=== PATIENT | male | born 1950 | race Caucasian/White ===

== ENCOUNTER 2020-10-23 03:16 | Emergency (ER) | payer MEDICARE, MEDICAID, SELFPAY ==
[2020-10-23] VITALS (7 sets, daily range): BP systolic 144–196; BP diastolic 73–105; PULSE 60–95; RESP 20–29; TEMP 36.6–37.4; O2SAT 93–99; BMI 32.5
--- NOTE | ~2020-10-23 | CT_ITS ---
EXAMINATION: CT CHEST WITHOUT CONTRAST CLINICAL INFORMATION: Chest pain, cough and fever COMPARISON: Previous chest CTA July 2015 and chest x-ray most recent from earlier the same day TECHNIQUE: Multidetector volumetric CT imaging of the chest was done. Axial MIP volume rendering provided. Sagittal and coronal reformatted images were obtained. This CT examination was performed using dose optimization techniques as appropriate, variously including the following: *Automated exposure control *Adjustment of mA and/or kV according to patient size (this includes techniques or standardized protocols for targeted exams where dose is matched to indication/reason for exam; i.e. extremities or head) *Use of iterative reconstruction technique DLP: 419 mGy-cm FINDINGS: BARBACK: LUNGS: Evaluation of the lungs is limited due to artifact from respiratory motion. There is a 7 x 8 mm right upper lobe pulmonary nodule axial image 20 series 3 that is stable. There is a 2 mm calcified right upper lobe nodule axial image 19 series 2. There are several clustered heterogeneous groundglass attenuation nodules in the right upper lobe, largest measuring 1 and 0.7 cm axial image 25 and 26 series 2 There is minimal subsegmental atelectasis at the lung bases and inferior segment of the lingula.. MEDIASTINUM: The heart is enlarged. There is coronary artery calcification. There is no pericardial effusion. The thoracic aorta is upper normal in caliber. The pulmonary arteries appear enlarged. The main pulmonary artery measures 4.8 cm. This is similar to 2016 exam. There are small mediastinal lymph nodes. No enlarged lymph nodes are seen. PLEURA: There are small bilateral pleural effusions. AXILLA: No lymphadenopathy. UPPER ABDOMEN: There is evidence of atherosclerotic disease. OSSEOUS STRUCTURES: There are old right-sided rib fractures. There are degenerative changes of the spine. CT/CT chest wo con IMPRESSION: Limited evaluation of the lungs due to artifact from respiratory motion. Several clustered heterogeneous groundglass attenuation nodules in the right upper lobe. This may represent an infectious or inflammatory process. Stable 7 x 8 mm solid-appearing right upper lobe nodule. Small 2 mm calcified right upper lobe nodule. Enlarged heart and coronary artery calcification. Upper normal-sized thoracic aorta. Enlarged pulmonary arteries. This is similar to 2016 exam.
--- NOTE | ~2020-10-23 | XR_ITS ---
EXAMINATION: CHEST 1 VIEW CLINICAL INFORMATION: Dyspnea. COMPARISON: 10/26/2018. TECHNIQUE: An AP view of the chest is provided. FINDINGS: The cardiac silhouette his prominent, though stable. The mediastinal and hilar contours are unremarkable. There are neither pleural effusions nor pneumothoraces. There are no consolidations. The osseous structures are stable. XR/XR chest 1V IMPRESSION: No evidence for acute disease.
--- NOTE | 2020-10-23 03:25 | ECG_ITS ---
Test Reason : SOB Blood Pressure : / mmHG Vent. Rate : 061 BPM Atrial Rate : 057 BPM P-R Int : 000 ms QRS Dur : 168 ms QT Int : 462 ms P-R-T Axes : 000 -08 002 degrees QTc Int : 465 ms Atrial fibrillation Right bundle branch block Inferior infarct , age undetermined Abnormal ECG When compared with ECG of 26-OCT-2018 13:35, Right bundle branch block is now Present Referred By: Soumya Joe Electronically Signed By:NINOSKA WEST
[2020-10-23 03:41] LABS: COVID-19 Test Negative (Negative); IDNOW Serial# 9DD0AD1C
--- NOTE | 2020-10-23 03:58 | ED_ITS ---
HPI - General Adult General Chief complaint: Upper Respiratory Symptoms Stated complaint: SOB,FEVER PER SNF Time Seen by Provider: 10/23/20 03:25 Source: patient Mode of arrival: EMS History of Present Illness HPI narrative: 70-year-old male who is brought in from care 1 by EMS and tested here on arrival for COVID-19. As per care 1 patient has a cough with chest wall pain started 2 hours ago. Patient was given aspirin by EMS. Patient states he is a little short of breath but denies any chest pain or abdominal pain. Related Data Allergies Allergy/AdvReac Type Severity Reaction Status Date / Time haloperidol [From HALDOL] Allergy Unknown UNKNOWN Unverified 03/28/20 18:59 penicillin V Allergy Unknown Verified 08/29/19 00:00 Penicillins [PENICILLINS] Allergy Unknown UNKNOWN Unverified 03/28/20 18:59 Review of Systems Review of Systems: Pertinent positives and negatives as stated in HPI 10 point review of systems is otherwise negative. [facility] Past Medical History Source: nursing notes reviewed Medical History Afib Myocardial infarction Social History Social History Smoking Status: Unknown if ever smoked Use of substances other than those prescribed or required for medical reasons: No Advance Directives: No Physical Exam Vital Signs: Vital Signs: Last Vital Signs Temp 98.3 F 10/23/20 08:19 Pulse 70 10/23/20 08:19 Resp 29 H 10/23/20 08:19 BP 168/78 H 10/23/20 08:19 Pulse Ox 93 10/23/20 08:19 Body Mass Index 32.5 VITAL SIGNS: Reviewed. GENERAL: Chronically ill, appears older than stated age, in no acute distress. HEAD: Normocephalic/atraumatic EYES: PERRLA, EOMI EARS: Ext canals without abnormality NOSE: Nares patent bilateral, nasal cannula in place OROPHARYNX: no oral lesions noted, posterior pharynx clear, tacky mucosa NECK: Supple, no adenopathy LUNGS: Diminished breath sounds, positive tachypnea SpO2<97> CARDIOVASCULAR: Regular rate and rhythm without noted murmurs, no JVD or lower extremity edema. ABDOMEN: Soft, non-tender, non-distended with bowel sounds. MUSCULOSKELETAL: No tenderness, deformities, or effusions noted on gross inspection. Bilateral lower EXTREMITIES: Skin darkening noted to bilateral lower extremities consistent with chronic venous disease SKIN: Inspection of the skin reveals no rashes NEUROLOGIC: Alert and oriented x 2. Strength and sensation to light touch were grossly intact x 4. Course Course Course Narrative: 70-year-old male with history and clinical presentation suggestive pneumonia, heart failure, and less likely cardiac etiology especially with reported fever that was not present on arrival. On review of all investigations there is a small leukocytosis with corresponding left shift without evidence of infiltrate on chest x-ray but will further evaluate with chest CT. There is a noted decrease in hemoglobin when compared to labs from 2019, but stool guaiac is negative and there is no history of hematemesis. Although troponin is noted to be 49.5 this is lateral in comparison to prior troponin and taken in combination with patient's absence of chest pain unlikely to be clinically significant. In addition, the BNP is likely secondary to renal function as there is no supporting findings on clinical exam or chest x-ray. UA is positive and patient to receive Rocephin. Signed out to Dr Tate: f/u CT chest, Trop #2 and if negative then d/c on antibiotics for UTI. Medical Decision Making Lab Data Result diagrams: 10/23/20 05:56 10/23/20 05:56 Labs: Lab Results 10/23/20 10/23/20 10/23/20 Range/Units 03:20 05:56 05:56 WBC 10.9 H (4.8-10.8) X10*3/uL RBC 3.11 L (4.60-5.80) X10*6/uL Hgb 9.3 L (14.0-18.0) g/dl Hct 29.6 L (42-52) % MCV 95.2 (80-98) fL MCH 29.9 (27.0-33.0) pg MCHC 31.4 (31.0-36.0) g/dl RDW 15.0 (11.0-16.0) % Plt Count 219 (160-400) X10*3/uL MPV 10.0 (9.4-12.4) fL Immature Gran % (Auto) 0.6 H (0.0-0.4) % Neut % (Auto) 79.8 H (45-73) % Lymph % (Auto) 10.7 L (20-40) % [place] % (Auto) 7.6 (2-11) % Eos % (Auto) 1.0 (0-4) % Baso % (Auto) 0.3 (0-2) % Lymph # (Auto) 1.2 (1.2-4.9) X10*3/uL [place] # (Auto) 0.8 (0.1-1.2) X10*3/uL Eos # (Auto) 0.1 (0.0-0.4) X10*3/uL Baso # (Auto) 0.0 (0.0-0.2) X10*3/uL Abs Immat Gran (auto) 0.07 H (0.00-0.03) X10*3/uL Absolute Neuts (auto) 8.7 H (2.0-8.3) X10*3/uL Absolute Nucleated RBC 0.000 (0.0-0.012) X10*3/uL Nucleated RBC % (auto) 0.0 (0.0-0.2) /100WBC Sodium 139 (135-145) mmol/L Potassium 4.9 (3.3-5.1) mmol/L Chloride 112 H (96-108) mmol/L Carbon Dioxide 19 L (22-29) mmol/L Anion Gap 13 (12-20) BUN 50 H (9-16) mg/dL Creatinine 3.06 H (0.5-1.4) mg/dL Estim Creat Clear Calc 29.0 Estimated GFR 20 Random Glucose 107 (60-115) mg/dL Lactic Acid (0.5-2.0) mmol/L Calcium 8.4 (8.4-10.2) mg/dL Total Bilirubin 0.7 (0.0-1.0) mg/dL AST 15 (5-37) U/L ALT 9 (0-40) U/L Alkaline Phosphatase 89 (39-117) U/L Troponin I High Sens (<3.5-35.0) ng/L B-Natriuretic Peptide (<100) pg/mL Total Protein 6.6 (6.5-8.0) g/dL Albumin 3.3 L (3.5-5.0) g/dL Urine Color Urine Appearance Urine pH (5.0-8.0) Ur Specific [place] (1.005-1.025) Urine Protein (NEG-TRACE) MG/DL Urine Glucose (UA) (NEG) MG/DL Urine Ketones (NEG) MG/DL Urine Blood (NEG) Urine Nitrite (NEG) Ur Leukocyte Esterase (NEG) Urine RBC (0) /HPF Urine WBC (0-4) /HPF Ur Squamous Epith Cells /LPF Urine Bacteria /LPF Stool Occult Blood (NEGATIVE) COVID-19 ([facility]) Negative (Negative) COVID-19 Clin Com See Note 10/23/20 10/23/20 10/23/20 Range/Units 05:56 05:56 08:06 WBC (4.8-10.8) X10*3/uL RBC (4.60-5.80) X10*6/uL Hgb (14.0-18.0) g/dl Hct (42-52) % MCV (80-98) fL MCH (27.0-33.0) pg MCHC (31.0-36.0) g/dl RDW (11.0-16.0) % Plt Count (160-400) X10*3/uL MPV (9.4-12.4) fL Immature Gran % (Auto) (0.0-0.4) % Neut % (Auto) (45-73) % Lymph % (Auto) (20-40) % [place] % (Auto) (2-11) % Eos % (Auto) (0-4) % Baso % (Auto) (0-2) % Lymph # (Auto) (1.2-4.9) X10*3/uL [place] # (Auto) (0.1-1.2) X10*3/uL Eos # (Auto) (0.0-0.4) X10*3/uL Baso # (Auto) (0.0-0.2) X10*3/uL Abs Immat Gran (auto) (0.00-0.03) X10*3/uL Absolute Neuts (auto) (2.0-8.3) X10*3/uL Absolute Nucleated RBC (0.0-0.012) X10*3/uL Nucleated RBC % (auto) (0.0-0.2) /100WBC Sodium (135-145) mmol/L Potassium (3.3-5.1) mmol/L Chloride (96-108) mmol/L Carbon Dioxide (22-29) mmol/L Anion Gap (12-20) BUN (9-16) mg/dL Creatinine (0.5-1.4) mg/dL Estim Creat Clear Calc Estimated GFR Random Glucose (60-115) mg/dL Lactic Acid 0.8 (0.5-2.0) mmol/L Calcium (8.4-10.2) mg/dL Total Bilirubin (0.0-1.0) mg/dL AST (5-37) U/L ALT (0-40) U/L Alkaline Phosphatase (39-117) U/L Troponin I High Sens 49.5 H (<3.5-35.0) ng/L B-Natriuretic Peptide 357 H (<100) pg/mL Total Protein (6.5-8.0) g/dL Albumin (3.5-5.0) g/dL Urine Color Urine Appearance Urine pH (5.0-8.0) Ur Specific [place] (1.005-1.025) Urine Protein (NEG-TRACE) MG/DL Urine Glucose (UA) (NEG) MG/DL Urine Ketones (NEG) MG/DL Urine Blood (NEG) Urine Nitrite (NEG) Ur Leukocyte Esterase (NEG) Urine RBC (0) /HPF Urine WBC (0-4) /HPF Ur Squamous Epith Cells /LPF Urine Bacteria /LPF Stool Occult Blood NEGATIVE (NEGATIVE) COVID-19 ([facility]) (Negative) COVID-19 Clin Com 10/23/20 Range/Units 08:24 WBC (4.8-10.8) X10*3/uL RBC (4.60-5.80) X10*6/uL Hgb (14.0-18.0) g/dl Hct (42-52) % MCV (80-98) fL MCH (27.0-33.0) pg MCHC (31.0-36.0) g/dl RDW (11.0-16.0) % Plt Count (160-400) X10*3/uL MPV (9.4-12.4) fL Immature Gran % (Auto) (0.0-0.4) % Neut % (Auto) (45-73) % Lymph % (Auto) (20-40) % [place] % (Auto) (2-11) % Eos % (Auto) (0-4) % Baso % (Auto) (0-2) % Lymph # (Auto) (1.2-4.9) X10*3/uL [place] # (Auto) (0.1-1.2) X10*3/uL Eos # (Auto) (0.0-0.4) X10*3/uL Baso # (Auto) (0.0-0.2) X10*3/uL Abs Immat Gran (auto) (0.00-0.03) X10*3/uL Absolute Neuts (auto) (2.0-8.3) X10*3/uL Absolute Nucleated RBC (0.0-0.012) X10*3/uL Nucleated RBC % (auto) (0.0-0.2) /100WBC Sodium (135-145) mmol/L Potassium (3.3-5.1) mmol/L Chloride (96-108) mmol/L Carbon Dioxide (22-29) mmol/L Anion Gap (12-20) BUN (9-16) mg/dL Creatinine (0.5-1.4) mg/dL Estim Creat Clear Calc Estimated GFR Random Glucose (60-115) mg/dL Lactic Acid (0.5-2.0) mmol/L Calcium (8.4-10.2) mg/dL Total Bilirubin (0.0-1.0) mg/dL AST (5-37) U/L ALT (0-40) U/L Alkaline Phosphatase (39-117) U/L Troponin I High Sens (<3.5-35.0) ng/L B-Natriuretic Peptide (<100) pg/mL Total Protein (6.5-8.0) g/dL Albumin (3.5-5.0) g/dL Urine Color YELLOW Urine Appearance CLOUDY Urine pH 6.0 (5.0-8.0) Ur Specific [place] 1.020 (1.005-1.025) Urine Protein 3+ H (NEG-TRACE) MG/DL Urine Glucose (UA) 250 H (NEG) MG/DL Urine Ketones NEG (NEG) MG/DL Urine Blood 3+ H (NEG) Urine Nitrite NEG (NEG) Ur Leukocyte Esterase 2+ H (NEG) Urine RBC 10-14 H (0) /HPF Urine WBC 76-150 H (0-4) /HPF Ur Squamous Epith Cells NONE /LPF Urine Bacteria 4+ /LPF Stool Occult Blood (NEGATIVE) COVID-19 ([facility]) (Negative) COVID-19 Clin Com ECG Data Attestation: I personally reviewed and interpreted this ECG as follows: Prior ECG tracings: available for review (10/26/2018 right bundle branch block is new) Interpretation: Atrial fibrillation, HR -61, RBBB, no ST elevations, QTC is within normal limits.
[2020-10-23 06:08] LABS: MANUAL DIFF FLAG NO
[2020-10-23 06:09] LABS: Basophils Percent Auto 0.3 % (0-2); Eosinophils Absolute Auto 0.1 X10*3/uL (0.0-0.4); Hematocrit 29.6 % (42-52); Hemoglobin 9.3 g/dl (14.0-18.0); Imm Gran Abs Auto 0.07 X10*3/uL (0.00-0.03); Imm Gran Pct Auto 0.6 % (0.0-0.4); Lymphocytes Absolute Auto 1.2 X10*3/uL (1.2-4.9); Lymphocytes Percent Auto 10.7 % (20-40); Mean Corpuscular HGB Conc 31.4 g/dl (31.0-36.0); Mean Corpuscular Hemoglobin 29.9 pg (27.0-33.0); Mean Corpuscular Volume 95.2 fL (80-98); Monocytes Absolute Auto 0.8 X10*3/uL (0.1-1.2); Monocytes Percent Auto 7.6 % (2-11); Neutrophils Absolute Auto 8.7 X10*3/uL (2.0-8.3); Neutrophils Percent Auto 79.8 % (45-73); Platelet Count 219 X10*3/uL (160-400); Red Blood Count 3.11 X10*6/uL (4.60-5.80); White Blood Count 10.9 X10*3/uL (4.8-10.8)
[2020-10-23 06:37] LABS: Lactic Acid 0.8 mmol/L (0.5-2.0)
[2020-10-23 06:41] LABS: Alanine Aminotransferase 9 U/L (0-40); Albumin Level 3.3 g/dL (3.5-5.0); Alkaline Phosphatase 89 U/L (39-117); Anion Gap 13 (12-20); Aspartate Amino Transferase 15 U/L (5-37); Bilirubin Total 0.7 mg/dL (0.0-1.0); Blood Urea Nitrogen 50 mg/dL (9-16); Calcium 8.4 mg/dL (8.4-10.2); Carbon Dioxide 19 mmol/L (22-29); Chloride 112 mmol/L (96-108); Estimated Glomerular Filt Rate 20; Glucose Random 107 mg/dL (60-115); Potassium 4.9 mmol/L (3.3-5.1); Sodium 139 mmol/L (135-145); Total Protein 6.6 g/dL (6.5-8.0)
--- NOTE | 2020-10-23 08:00 | PC.NURSE ---
pt resting in the stretcher, respirations even and unlabored, pt is alert and oriented, to place but not time, respirations even and unlabored, ls clear, pt denies pain at this time. vs stable
[2020-10-23 08:13] LABS: OBS Int Ctl Valid YES; OBS1 NEGATIVE (NEGATIVE)
[2020-10-23 08:36] LABS: B Type Natriuretic Peptide 357 pg/mL (<100)
[2020-10-23 08:38] LABS: Troponin-I High Sensitivity 49.5 ng/L (<3.5-35.0)
[2020-10-23 08:42] LABS: Color Urine YELLOW; Glucose Urine UA 250 MG/DL (NEG); Leukocyte Esterase Urine 2+ (NEG); Nitrite Urine NEG (NEG); UACC Culture Trigger YES; Urine Blood 3+ (NEG); Urine Ketones NEG (NEG); Urine Protein 3+ MG/DL (NEG-TRACE)
[2020-10-23 08:43] LABS: Appearance Urine CLOUDY
[2020-10-23 08:52] LABS: Bacteria Urine 4+ /LPF
[2020-10-23] MEDS: cefTRIAXone sodium 1 GM in 0.9 % Sodium Chloride 50 ML IV (09:51)
[2020-10-23 11:05] LABS: Troponin-I High Sensitivity 43.5 ng/L (<3.5-35.0)
--- NOTE | 2020-10-23 11:46 | PC.NURSE ---
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
--- NOTE | 2020-10-23 13:41 | PC.NURSE ---
pt pulled out iv access, pt cleaned and changed performed, pt moved to hallway bed awating ambulace to go back to facility
--- NOTE | 2020-10-23 14:03 | PC.NURSE ---
nurse to nurse given to [facility], ems to transport patient
== END 2020-10-23 14:03 ==
PROVIDERS: Student in an Organized Health Care Education/Training Program; Emergency Provider Emergency Medicine Emergency Medical Services
DX: R07.89 Other chest pain (principal); N39.0 Urinary tract infection, site not specified; Z20.822 Contact with and (suspected) exposure to COVID-19; R50.9 Fever, unspecified; I48.91 Unspecified atrial fibrillation; I25.2 Old myocardial infarction
CPT/HCPCS: 11104; 36415; 71045; 71250; 80053; 81001; 81003; 82272; 83605; 83880; 84484; 85025; 87040; 87086; 87088; 87186; 87635; 93005; 96365; 99285; J0696

== ENCOUNTER 2020-12-15 10:12 | Inpatient (IN) | payer MEDICARE, MEDICAID, SELFPAY ==
[2020-12-15] VITALS (7 sets, daily range): BP systolic 142–181; BP diastolic 84–108; PULSE 68–86; RESP 16–24; TEMP 36.8–36.9; O2SAT 89–98; BMI 34.7
--- NOTE | ~2020-12-15 | XR_ITS ---
EXAMINATION: XR CHEST CLINICAL INFORMATION: Chest pain. Leg swelling. COMPARISON: None TECHNIQUE: 2 views of the chest were obtained. FINDINGS: The lungs are somewhat expanded with patchy opacity left lung base likely effusion/infiltrate or atelectasis. Rest of lungs are clear. Heart size and pulmonary vascularity is normal. No gross bony abnormality seen. XR/XR chest 2V IMPRESSION: Left basilar haziness question effusion/atelectasis.
--- NOTE | ~2020-12-15 | CT_ITS ---
EXAMINATION: CT CHEST WITHOUT CONTRAST CLINICAL INFORMATION: abnormal CXR, eval for pna vs fluid . COMPARISON: Chest x-ray from today as well as the 10/23/[address] TECHNIQUE: Multidetector volumetric imaging was performed from the thoracic inlet through the lung bases without contrast. A low dose technique was utilized. Sagittal and coronal reformatted images were obtained on the technologist workstation. Soft tissue and lung algorithms evaluated. Thick slab MIP images were performed to increase nodule conspicuity. This CT examination was performed using dose optimization techniques as appropriate, variously including the following: *Automated exposure control *Adjustment of mA and/or kV according to patient size (this includes techniques or standardized protocols for targeted exams where dose is matched to indication/reason for exam; i.e. extremities or head) *Use of iterative reconstruction technique DLP: 413 mGy-cm. FINDINGS: LUNG: Bibasilar dependent atelectasis likely in part related to the bilateral pleural effusions. No additional dense consolidation. Finding does obscured by respiratory motion artifact on the study. There is a stable 0.9 cm pulmonary nodule in the medial aspect of the right upper lobe appreciated on axial image . This is not significantly changed in character from the prior study.. MEDIASTINUM: Vascular calcification within the aorta and coronary vessels. Prominent mediastinal lymph nodes are again seen the largest is a subcarinal lymph node with a short axis diameter of approximately 2 cm, similar to the prior study. There is mild central calcification within this lymph node. Air-filled distended esophagus is noted which could be incidental although can be associated with component of esophageal dysmotility. Central airways grossly unremarkable. PERICARDIUM/PLEURA: Increased small right greater than left bilateral pleural effusions are now present. THYROID/VISUALIZED LOWER NECK: Unremarkable. CHEST WALL/AXILLA: Unremarkable. VISUALIZED UPPER ABDOMEN: Unremarkable. BONES: Degenerative changes in the spine. Old healed right-sided rib fractures are noted without acute displaced rib fracture seen. CT/CT chest wo con IMPRESSION: Increased bilateral pleural effusions when compared to the prior study. There is associated bibasilar airspace changes likely due to atelectasis. I do not appreciate any new or dense consolidation when compared to prior study. Stable nonspecific pulmonary nodule in the medial aspect of the right upper lobe difficult to define further due to motion artifact on the study. This has been present on prior studies and measured up to 9 mm in size on the 07/13/2015 study as well suggesting more benign etiology.
--- NOTE | 2020-12-15 10:22 | ECG_ITS ---
Test Reason : CP Blood Pressure : / mmHG Vent. Rate : 077 BPM Atrial Rate : 065 BPM P-R Int : 000 ms QRS Dur : 168 ms QT Int : 454 ms P-R-T Axes : 000 -23 -10 degrees QTc Int : 513 ms Atrial fibrillation Right bundle branch block Inferior infarct (cited on or before 23-OCT-2020) Abnormal ECG When compared with ECG of 23-OCT-2020 04:52, No significant change was found Referred By: Jessica Gomez Electronically Signed By:Thomas Mchugh
--- NOTE | 2020-12-15 10:30 | ED.GENADULT ---
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 No reports of shortness of breath or chest discomfort. No fevers, chills or cough. Of note patient is admitted to [facility] for CHF 11/03/2020. I do not have the discharge summary readily available. On review of patient's medication list there are no diuretics noted. Per report from [facility] where patient resides as a [facility] resident. DNR DNI code status Related Data Home Medications Medication Instructions Recorded Confirmed amlodipine 1 tab PO DAILY 12/15/20 12/15/20 aripiprazole 1 tab PO DAILY 12/15/20 12/15/20 calcium carbonate 1,000 mg PO DAILY 12/15/20 12/15/20 dapagliflozin [Farxiga] 1 tab PO DAILY 12/15/20 12/15/20 gemfibrozil 1 tab PO BID 12/15/20 12/15/20 hydralazine 1 tab PO TID 12/15/20 12/15/20 insulin lispro [Humalog KwikPen unit SUBCUT TIDAC 12/15/20 Insulin] metoprolol tartrate 1 tab PO BID 12/15/20 12/15/20 oxybutynin chloride 10 mg PO BID 12/15/20 12/15/20 tamsulosin 1 cap PO DAILY 12/15/20 12/15/20 Allergies Allergy/AdvReac Type Severity Reaction Status Date / Time haloperidol [From HALDOL] Allergy Unknown UNKNOWN Verified 12/15/20 10:28 penicillin V Allergy Unknown Unknown Verified 12/15/20 10:28 Penicillins [PENICILLINS] Allergy Unknown UNKNOWN Verified 12/15/20 10:28 Review of Systems Review of Systems: Yes Unobtainable due to mental status (limited d/t baseline confusion) Neurologic: Denies Abnormal speech present [facility] Past Medical History Medical History Acute kidney failure Afib Alcoholic cardiomyopathy Atherosclerotic heart disease of [place] coronary artery without angina pectoris BPH (benign prostatic hyperplasia) Chronic kidney disease HTN (hypertension) Myocardial infarction Systolic heart failure Type 2 diabetes mellitus Unspecified convulsions Unspecified sequelae of cerebral infarction Wernickes encephalopathy Social History Social History Patient Tobacco Use Status: Tobacco use Unknown Use of substances other than those prescribed or required for medical reasons: No Advance Directives: Yes Advance Directives Information Provided: Yes Advance Directives on File: No Physical Exam Vital Signs: Vital Signs: Last Vital Signs Temp 98.5 F 12/15/20 12:16 Pulse 74 12/15/20 13:28 Resp 20 12/15/20 13:28 BP 170/90 H 12/15/20 13:28 Pulse Ox 98 12/15/20 13:29 Body Mass Index 34.7 Const: General: cooperative and comfortable Orientation/consciousness: oriented to person and oriented to place Limitations: altered mental status (limited d/t confusion ) HENMT: Head: Yes normal to inspection Ears: hearing grossly normal bilaterally and TM's normal bilaterally General nose exam: Normal external nose present Face and sinus: Yes normal facial exam Mouth: Normal oral and palatal mucosa present Throat: Yes posterior oropharynx normal, Yes tonsils normal and Yes uvula midline Eyes: General: appearance normal, both eyes and all related structures Pupils: Equal, round and reactive pupils present Neck: Neck: Yes normal visual inspection, Yes full ROM and Yes no lymphadenopathy Chest: Chest palpation & inspection: normal inspection of the chest Resp: Other: Mild accessory muscle use noted Speaking short phrases Pulse ox 97% RA Diminished breath sounds bilaterally Cardio: Rate: regular rate Rhythm: regular rhythm Peripheral pulses: Peripheral pulses 2+ throughout GI: Inspection: Yes normal to inspection Palpation (GI): Soft to palpation and nontender Auscultation: normal bowel sounds Back/Spine/Pelvis: Thoracic/Lumbar Spine: thoracic and lumbar spine normal to inspection Skin: General skin exam: no rashes or lesions noted Neuro: General: oriented to person, oriented to place, normal sensation to monofilament and Unable to assess gait Cranial nerves: Yes Equal, round and reactive pupils present Speech: No Abnormal speech present Gait exam (Neuro): Unable to assess gait Extrem: Other: Bilateral pitting edema 3+ extending to the mid lower extremities. No warmth. Mild erythema. 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 Patient denies any shortness of breath or chest pain. He is noted to have some mild accessory muscle use with diminished breath sounds but fortunately on arrival pulse ox appears stable. Bilateral pitting edema to lower extremities noted. Hypertensive 160s to 170 systolic. Will need labs, EKG, chest x-ray. 1130-UA consistent with a UTI. At this time infection is suspected. Antibiotics ordered. Renal function at baseline. CBC shows microcytic anemia unchanged from previous. Troponin is mildly elevated. No chest pain or ischemic changes noted on EKG. Plan for repeat 3 hour troponin. BNP is mildly elevated. Chest x-ray is concerning for left lower lobe atelectasis versus pneumonia. No obvious signs of fluid overload on the films. The patient does have some clinical findings on exam concerning for CHF. Will order CT chest to eval further. 1315-Hypoxia down to 87% RA which improved with oxygen NC. patient not ambulatory at baseline so unable to assess ambulatory oxygen saturation. CT chest pending. Likely CHF exacerbation. Will give Lasix 40mg IV. 1445-Received records from [facility] recent admit for CHF/PNA. Admit 10/23-11/02 for CHF initially treated with BiPAP and IV Lasix, pneumonia treated for community acquired with ceftriaxone and azithromycin, acute on chronic kidney disease. 1540-CT chest shows bilateral pleural effusions with some associated atelectasis. No pneumonia. Call out to Medicine to discuss for admission. 1600-D/w with Dr Ramos who accepted admission. Medical Decision Making [facility] Narrative Medical decision making narrative: CHF exacerbation, pneumonia, pe/dvt Medical Records Medical records reviewed: Yes I reviewed the patient's medical records. Lab Data Lab results reviewed: Yes I reviewed the patient's lab results. Result diagrams: 12/15/20 10:58 12/15/20 10:58 Labs: Lab Results 12/15/20 12/15/20 12/15/20 Range/Units 10:57 10:57 10:58 WBC 6.5 (4.8-10.8) X10*3/uL RBC 3.19 L (4.60-5.80) X10*6/uL Hgb 9.5 L (14.0-18.0) g/dl Hct 31.4 L (42-52) % MCV 98.4 H (80-98) fL MCH 29.8 (27.0-33.0) pg MCHC 30.3 L (31.0-36.0) g/dl RDW 16.1 H (11.0-16.0) % Plt Count 230 (160-400) X10*3/uL MPV 9.4 (9.4-12.4) fL Immature Gran % (Auto) 0.5 H (0.0-0.4) % Neut % (Auto) 69.0 (45-73) % Lymph % (Auto) 19.1 L (20-40) % Clinch % (Auto) 8.3 (2-11) % Eos % (Auto) 2.8 (0-4) % Baso % (Auto) 0.3 (0-2) % Lymph # (Auto) 1.3 (1.2-4.9) X10*3/uL Clinch # (Auto) 0.5 (0.1-1.2) X10*3/uL Eos # (Auto) 0.2 (0.0-0.4) X10*3/uL Baso # (Auto) 0.0 (0.0-0.2) X10*3/uL Abs Immat Gran (auto) 0.03 (0.00-0.03) X10*3/uL Absolute Neuts (auto) 4.5 (2.0-8.3) X10*3/uL Absolute Nucleated RBC 0.000 (0.0-0.012) X10*3/uL Nucleated RBC % (auto) 0.0 (0.0-0.2) /100WBC PT 13.6 H (10.8-13.0) SEC INR 1.1 (0.9-1.1) Sodium (135-145) mmol/L Potassium (3.3-5.1) mmol/L Chloride (96-108) mmol/L Carbon Dioxide (22-29) mmol/L Anion Gap (12-20) BUN (9-16) mg/dL Creatinine (0.5-1.4) mg/dL Estim Creat Clear Calc Estimated GFR Random Glucose (60-115) mg/dL Lactic Acid 0.9 (0.5-2.0) mmol/L Calcium (8.4-10.2) mg/dL Magnesium (1.6-2.6) mg/dL Total Bilirubin (0.0-1.0) mg/dL Direct Bilirubin (0.0-0.5) mg/dL AST (5-37) U/L ALT (0-40) U/L Alkaline Phosphatase (39-117) U/L Troponin I High Sens (<3.5-35.0) ng/L B-Natriuretic Peptide (<100) pg/mL Total Protein (6.5-8.0) g/dL Albumin (3.5-5.0) g/dL Urine Color Urine Appearance Urine pH (5.0-8.0) Ur Specific [place] (1.005-1.025) Urine Protein (NEG-TRACE) MG/DL Urine Glucose (UA) (NEG) MG/DL Urine Ketones (NEG) MG/DL Urine Blood (NEG) Urine Nitrite (NEG) Ur Leukocyte Esterase (NEG) Urine RBC (0) /HPF Urine WBC (0-4) /HPF Ur Squamous Epith Cells /LPF Urine Bacteria /LPF COVID-19 ([facility]) (Negative) COVID-19 Clin Com 12/15/20 12/15/20 12/15/20 Range/Units 10:58 10:58 11:08 WBC (4.8-10.8) X10*3/uL RBC (4.60-5.80) X10*6/uL Hgb (14.0-18.0) g/dl Hct (42-52) % MCV (80-98) fL MCH (27.0-33.0) pg MCHC (31.0-36.0) g/dl RDW (11.0-16.0) % Plt Count (160-400) X10*3/uL MPV (9.4-12.4) fL Immature Gran % (Auto) (0.0-0.4) % Neut % (Auto) (45-73) % Lymph % (Auto) (20-40) % Clinch % (Auto) (2-11) % Eos % (Auto) (0-4) % Baso % (Auto) (0-2) % Lymph # (Auto) (1.2-4.9) X10*3/uL Clinch # (Auto) (0.1-1.2) X10*3/uL Eos # (Auto) (0.0-0.4) X10*3/uL Baso # (Auto) (0.0-0.2) X10*3/uL Abs Immat Gran (auto) (0.00-0.03) X10*3/uL Absolute Neuts (auto) (2.0-8.3) X10*3/uL Absolute Nucleated RBC (0.0-0.012) X10*3/uL Nucleated RBC % (auto) (0.0-0.2) /100WBC PT (10.8-13.0) SEC INR (0.9-1.1) Sodium 141 (135-145) mmol/L Potassium 4.5 (3.3-5.1) mmol/L Chloride 111 H (96-108) mmol/L Carbon Dioxide 20 L (22-29) mmol/L Anion Gap 15 (12-20) BUN 50 H (9-16) mg/dL Creatinine 3.70 H (0.5-1.4) mg/dL Estim Creat Clear Calc 24.0 Estimated GFR 16 Random Glucose 71 (60-115) mg/dL Lactic Acid (0.5-2.0) mmol/L Calcium 8.2 L (8.4-10.2) mg/dL Magnesium 2.1 (1.6-2.6) mg/dL Total Bilirubin 0.5 (0.0-1.0) mg/dL Direct Bilirubin 0.3 (0.0-0.5) mg/dL AST 15 (5-37) U/L ALT 6 (0-40) U/L Alkaline Phosphatase 104 (39-117) U/L Troponin I High Sens 27.4 (<3.5-35.0) ng/L B-Natriuretic Peptide 381 H (<100) pg/mL Total Protein 6.9 (6.5-8.0) g/dL Albumin 3.2 L (3.5-5.0) g/dL Urine Color YELLOW Urine Appearance HAZY Urine pH 5.5 (5.0-8.0) Ur Specific [place] 1.025 (1.005-1.025) Urine Protein 3+ H (NEG-TRACE) MG/DL Urine Glucose (UA) 250 H (NEG) MG/DL Urine Ketones NEG (NEG) MG/DL Urine Blood 3+ H (NEG) Urine Nitrite NEG (NEG) Ur Leukocyte Esterase 2+ H (NEG) Urine RBC 5-9 H (0) /HPF Urine WBC 76-150 H (0-4) /HPF Ur Squamous Epith Cells NONE /LPF Urine Bacteria 4+ /LPF COVID-19 ([facility]) (Negative) COVID-19 Clin Com 12/15/20 12/15/20 Range/Units 13:28 14:19 WBC (4.8-10.8) X10*3/uL RBC (4.60-5.80) X10*6/uL Hgb (14.0-18.0) g/dl Hct (42-52) % MCV (80-98) fL MCH (27.0-33.0) pg MCHC (31.0-36.0) g/dl RDW (11.0-16.0) % Plt Count (160-400) X10*3/uL MPV (9.4-12.4) fL Immature Gran % (Auto) (0.0-0.4) % Neut % (Auto) (45-73) % Lymph % (Auto) (20-40) % Clinch % (Auto) (2-11) % Eos % (Auto) (0-4) % Baso % (Auto) (0-2) % Lymph # (Auto) (1.2-4.9) X10*3/uL Clinch # (Auto) (0.1-1.2) X10*3/uL Eos # (Auto) (0.0-0.4) X10*3/uL Baso # (Auto) (0.0-0.2) X10*3/uL Abs Immat Gran (auto) (0.00-0.03) X10*3/uL Absolute Neuts (auto) (2.0-8.3) X10*3/uL Absolute Nucleated RBC (0.0-0.012) X10*3/uL Nucleated RBC % (auto) (0.0-0.2) /100WBC PT (10.8-13.0) SEC INR (0.9-1.1) Sodium (135-145) mmol/L Potassium (3.3-5.1) mmol/L Chloride (96-108) mmol/L Carbon Dioxide (22-29) mmol/L Anion Gap (12-20) BUN (9-16) mg/dL Creatinine (0.5-1.4) mg/dL Estim Creat Clear Calc Estimated GFR Random Glucose (60-115) mg/dL Lactic Acid (0.5-2.0) mmol/L Calcium (8.4-10.2) mg/dL Magnesium (1.6-2.6) mg/dL Total Bilirubin (0.0-1.0) mg/dL Direct Bilirubin (0.0-0.5) mg/dL AST (5-37) U/L ALT (0-40) U/L Alkaline Phosphatase (39-117) U/L Troponin I High Sens 30.5 (<3.5-35.0) ng/L B-Natriuretic Peptide (<100) pg/mL Total Protein (6.5-8.0) g/dL Albumin (3.5-5.0) g/dL Urine Color Urine Appearance Urine pH (5.0-8.0) Ur Specific [place] (1.005-1.025) Urine Protein (NEG-TRACE) MG/DL Urine Glucose (UA) (NEG) MG/DL Urine Ketones (NEG) MG/DL Urine Blood (NEG) Urine Nitrite (NEG) Ur Leukocyte Esterase (NEG) Urine RBC (0) /HPF Urine WBC (0-4) /HPF Ur Squamous Epith Cells /LPF Urine Bacteria /LPF COVID-19 ([facility]RA) Negative (Negative) COVID-19 Clin Com See Note Imaging Data Chest x-ray: Attestation: I personally reviewed and interpreted this imaging study as follows: Radiologist's impression: EXAMINATION: XR CHEST CLINICAL INFORMATION: Chest pain. Leg swelling. COMPARISON: None TECHNIQUE: 2 views of the chest were obtained. FINDINGS: The lungs are somewhat expanded with patchy opacity left lung base likely effusion/infiltrate or atelectasis. Rest of lungs are clear. Heart size and pulmonary vascularity is normal. No gross bony abnormality seen. XR/XR chest 2V IMPRESSION: Left basilar haziness question effusion/atelectasis. CT scan - chest: Attestation: I personally reviewed and interpreted this imaging study as follows: Radiologist's impression: EXAMINATION: CT CHEST WITHOUT CONTRAST CLINICAL INFORMATION: abnormal CXR, eval for pna vs fluid . COMPARISON: Chest x-ray from today as well as the 10/23/[address] TECHNIQUE: Multidetector volumetric imaging was performed from the thoracic inlet through the lung bases without contrast. A low dose technique was utilized. Sagittal and coronal reformatted images were obtained on the technologist workstation. Soft tissue and lung algorithms evaluated. Thick slab MIP images were performed to increase nodule conspicuity. This CT examination was performed using dose optimization techniques as appropriate, variously including the following: *Automated exposure control *Adjustment of mA and/or kV according to patient size (this includes techniques or standardized protocols for targeted exams where dose is matched to indication/reason for exam; i.e. extremities or head) *Use of iterative reconstruction technique DLP: 413 mGy-cm. FINDINGS: LUNG: Bibasilar dependent atelectasis likely in part related to the bilateral pleural effusions. No additional dense consolidation. Finding does obscured by respiratory motion artifact on the study. There is a stable 0.9 cm pulmonary nodule in the medial aspect of the right upper lobe appreciated on axial image . This is not significantly changed in character from the prior study.. MEDIASTINUM: Vascular calcification within the aorta and coronary vessels. Prominent mediastinal lymph nodes are again seen the largest is a subcarinal lymph node with a short axis diameter of approximately 2 cm, similar to the prior study. There is mild central calcification within this lymph node. Air-filled distended esophagus is noted which could be incidental although can be associated with component of esophageal dysmotility. Central airways grossly unremarkable. PERICARDIUM/PLEURA: Increased small right greater than left bilateral pleural effusions are now present. THYROID/VISUALIZED LOWER NECK: Unremarkable. CHEST WALL/AXILLA: Unremarkable. VISUALIZED UPPER ABDOMEN: Unremarkable. BONES: Degenerative changes in the spine. Old healed right-sided rib fractures are noted without acute displaced rib fracture seen. CT/CT chest wo con IMPRESSION: Increased bilateral pleural effusions when compared to the prior study. There is associated bibasilar airspace changes likely due to atelectasis. I do not appreciate any new or dense consolidation when compared to prior study. Stable nonspecific pulmonary nodule in the medial aspect of the right upper lobe difficult to define further due to motion artifact on the study. This has been present on prior studies and measured up to 9 mm in size on the 07/13/2015 study as well suggesting more benign etiology. ECG Data Attestation: I personally reviewed and interpreted this ECG as follows: Interpretation: AFib with a rate of 77, right bundle branch block unchanged from previous EKG 10/23/2020 QTC 513 Critical Care Time Critical Care Time Critical Care Time: Yes Total Critical Care Time: 60 Attestation: Multiple re-evaluations for respiratory status, blood pressure, discussion with hospitalist for admission, review of records from tertiary care facility Discharge Plan Discharge Clinical Impression: CHF (congestive heart failure), UTI (urinary tract infection), Hypoxia, CKD (chronic kidney disease) Patient Disposition: Admitted As Inpatient
[2020-12-15 11:07] LABS: Basophils Percent Auto 0.3 % (0-2); Eosinophils Absolute Auto 0.2 X10*3/uL (0.0-0.4); Eosinophils Percent Auto 2.8 % (0-4); Hematocrit 31.4 % (42-52); Hemoglobin 9.5 g/dl (14.0-18.0); Imm Gran Abs Auto 0.03 X10*3/uL (0.00-0.03); Imm Gran Pct Auto 0.5 % (0.0-0.4); Lymphocytes Absolute Auto 1.3 X10*3/uL (1.2-4.9); Lymphocytes Percent Auto 19.1 % (20-40); MANUAL DIFF FLAG NO; Mean Corpuscular HGB Conc 30.3 g/dl (31.0-36.0); Mean Corpuscular Hemoglobin 29.8 pg (27.0-33.0); Mean Corpuscular Volume 98.4 fL (80-98); Mean Platelet Volume 9.4 fL (9.4-12.4); Monocytes Absolute Auto 0.5 X10*3/uL (0.1-1.2); Monocytes Percent Auto 8.3 % (2-11); Neutrophils Absolute Auto 4.5 X10*3/uL (2.0-8.3); Platelet Count 230 X10*3/uL (160-400); Red Blood Count 3.19 X10*6/uL (4.60-5.80); Red Cell Distribution Width 16.1 % (11.0-16.0); White Blood Count 6.5 X10*3/uL (4.8-10.8)
[2020-12-15 11:13] LABS: INTERNATIONAL NORM RATIO 1.1 (0.9-1.1); Prothrombin Time 13.6 SEC (10.8-13.0)
--- NOTE | 2020-12-15 11:13 | PC.NURSE ---
Pt presents to ED alert and oriented x 2, answers simple questions asked. Skin pwd. IV estbalished and labs sent. Mild increased work of breathing noted with RR 22-24. sat 95-97% on room air. Straight cath for 300ml of pus like urine, foul odor, sample collected/sent. +3-4 pitting edema to BLE, with discoloration. RBB on tele
[2020-12-15 11:23] LABS: Lactic Acid 0.9 mmol/L (0.5-2.0)
[2020-12-15 11:27] LABS: Glucose Urine UA 250 MG/DL (NEG); Leukocyte Esterase Urine 2+ (NEG); Nitrite Urine NEG (NEG); PH 5.5 (5.0-8.0); Specific Gravity - Urine 1.025 (1.005-1.025); UACC Culture Trigger YES; Urine Blood 3+ (NEG); Urine Ketones NEG (NEG); Urine Protein 3+ MG/DL (NEG-TRACE)
[2020-12-15 11:28] LABS: Alanine Aminotransferase 6 U/L (0-40); Albumin Level 3.2 g/dL (3.5-5.0); Alkaline Phosphatase 104 U/L (39-117); Anion Gap 15 (12-20); Aspartate Amino Transferase 15 U/L (5-37); Bilirubin Direct 0.3 mg/dL (0.0-0.5); Bilirubin Total 0.5 mg/dL (0.0-1.0); Blood Urea Nitrogen 50 mg/dL (9-16); Calcium 8.2 mg/dL (8.4-10.2); Carbon Dioxide 20 mmol/L (22-29); Chloride 111 mmol/L (96-108); Estimated Glomerular Filt Rate 16; Glucose Random 71 mg/dL (60-115); Magnesium 2.1 mg/dL (1.6-2.6); Potassium 4.5 mmol/L (3.3-5.1); Sodium 141 mmol/L (135-145); Total Protein 6.9 g/dL (6.5-8.0)
[2020-12-15 11:33] LABS: Appearance Urine HAZY; Color Urine YELLOW
[2020-12-15 11:34] LABS: B Type Natriuretic Peptide 381 pg/mL (<100); Troponin-I High Sensitivity 27.4 ng/L (<3.5-35.0)
[2020-12-15 11:41] LABS: Bacteria Urine 4+ /LPF
[2020-12-15] MEDS: cefTRIAXone sodium 1 GM in 0.9 % Sodium Chloride 50 ML IV (11:52)
[2020-12-15] MEDS: Furosemide 40 MG/4 ML VIAL IVPUSH (13:26)
--- NOTE | 2020-12-15 13:29 | PC.NURSE ---
Pt sat 88-89% on room air, placed on 2lpm via nc and sat up to 98%. Plan for admission. Lasix given as charted, COVID swab obtained/sent
[2020-12-15 13:56] LABS: COVID-19 Test Negative (Negative)
[2020-12-15 14:48] LABS: Troponin-I High Sensitivity 30.5 ng/L (<3.5-35.0)
--- NOTE | 2020-12-15 16:36 | PM.IMHP ---
History of Present Illness Date of Service: 12/15/20 Chief Complaint: Difficulty breathing, increased swelling 70 years old male with PMH of were neck encephalopathy secondary to chronic alcohol abuse, CMP with biventricular failure, CAD, CKD, AFib not on anticoagulation, diabetes among others who presented to the hospital from [facility] with reported increased shortness of breath and lower extremity swelling for the last 3-4 days. The patient is unable to provide a lot of history but he saying there is no chest pain at all, no fever or chills. He was recently treated for similar presentation at [facility] in late in October but was not discharged on any diuretics at that time. In the emergency his chest x-ray and CT scan were consistent with bilateral effusions, fluid overload and atelectasis. BNP was noted to be elevated. Admitted to the hospital for further evaluation and treatment. Review of Systems Review of Systems: No fever, chills No chest pain, palpitation shortness of breath or coughing , swelling No abdominal pain, nausea or vomiting No urinary symptoms No any rash or wounds PMFSH Medical History Acute kidney failure Afib Alcoholic cardiomyopathy Atherosclerotic heart disease of [place] coronary artery without angina pectoris BPH (benign prostatic hyperplasia) Chronic kidney disease HTN (hypertension) Myocardial infarction Systolic heart failure Type 2 diabetes mellitus Unspecified convulsions Unspecified sequelae of cerebral infarction Wernickes encephalopathy Social History Patient Tobacco Use Status: Tobacco use Unknown Use of substances other than those prescribed or required for medical reasons: No Advance Directives: Yes Advance Directives Information Provided: Yes Advance Directives on File: No Meds Allergies Allergy/AdvReac Type Severity Reaction Status Date / Time haloperidol [From HALDOL] Allergy Unknown UNKNOWN Verified 12/15/20 10:28 penicillin V Allergy Unknown Unknown Verified 12/15/20 10:28 Penicillins [PENICILLINS] Allergy Unknown UNKNOWN Verified 12/15/20 10:28 Home Medications Medication Instructions Recorded Confirmed Last Taken Type amlodipine 1 tab PO DAILY 12/15/20 12/15/20 Unknown History aripiprazole 1 tab PO DAILY 12/15/20 12/15/20 Unknown History calcium carbonate 1,000 mg PO DAILY 12/15/20 12/15/20 Unknown History dapagliflozin [Farxiga] 1 tab PO DAILY 12/15/20 12/15/20 Unknown History gemfibrozil 1 tab PO BID 12/15/20 12/15/20 Unknown History hydralazine 1 tab PO TID 12/15/20 12/15/20 Unknown History insulin lispro [Humalog KwikPen unit SUBCUT TIDAC 12/15/20 Unknown History Insulin] metoprolol tartrate 1 tab PO BID 12/15/20 12/15/20 Unknown History oxybutynin chloride 10 mg PO BID 12/15/20 12/15/20 Unknown History tamsulosin 1 cap PO DAILY 12/15/20 12/15/20 Unknown History Physical Exam Vital Signs and Narrative: Vital Signs: Last Vital Signs Temp 98.5 F 12/15/20 12:16 Pulse 74 12/15/20 13:28 Resp 20 12/15/20 13:28 BP 170/90 H 12/15/20 13:28 Pulse Ox 98 12/15/20 13:29 Body Mass Index 34.7 Const: Other: Constitutional : Alert, disoriented and mildly confused, not in distress Neck : Normal inspection, Supple Cardiovascular : RRR, S1 S2, +2 lower extremity edema Respiratory : Decreased bilateral air entry, and basal bilateral crackles, no wheezes or rhonchi Gastrointestinal: soft, lax, Normal bowel sounds, Non tender Skin : Warm/Dry, No rash Neurological : Alert & disoriented, No focal deficit Results Labs CBC and Chem 7: 12/15/20 10:58 12/15/20 10:58 Labs: Laboratory Results - last 24 hr 12/15/20 12/15/20 12/15/20 10:57 10:57 10:58 MCV 98.4 H MCH 29.8 MCHC 30.3 L RDW 16.1 H Plt Count 230 MPV 9.4 Immature Gran % (Auto) 0.5 H Neut % (Auto) 69.0 Lymph % (Auto) 19.1 L [place] % (Auto) 8.3 Eos % (Auto) 2.8 Baso % (Auto) 0.3 Lymph # (Auto) 1.3 [place] # (Auto) 0.5 Eos # (Auto) 0.2 Baso # (Auto) 0.0 Abs Immat Gran (auto) 0.03 Absolute Neuts (auto) 4.5 Absolute Nucleated RBC 0.000 Nucleated RBC % (auto) 0.0 PT 13.6 H INR 1.1 Anion Gap Estim Creat Clear Calc Estimated GFR Random Glucose Lactic Acid 0.9 Calcium Magnesium Total Bilirubin Direct Bilirubin AST ALT Alkaline Phosphatase Troponin I High Sens B-Natriuretic Peptide Total Protein Albumin Urine Color Urine Appearance Urine pH Ur Specific [place] Urine Protein Urine Glucose (UA) Urine Ketones Urine Blood Urine Nitrite Ur Leukocyte Esterase Urine RBC Urine WBC Ur Squamous Epith Cells Urine Bacteria COVID-19 (KIARRA) COVID-19 [facility] Com 12/15/20 12/15/20 12/15/20 10:58 10:58 11:08 MCV MCH MCHC RDW Plt Count MPV Immature Gran % (Auto) Neut % (Auto) Lymph % (Auto) [place] % (Auto) Eos % (Auto) Baso % (Auto) Lymph # (Auto) [place] # (Auto) Eos # (Auto) Baso # (Auto) Abs Immat Gran (auto) Absolute Neuts (auto) Absolute Nucleated RBC Nucleated RBC % (auto) PT INR Anion Gap 15 Estim Creat Clear Calc 24.0 Estimated GFR 16 Random Glucose 71 Lactic Acid Calcium 8.2 L Magnesium 2.1 Total Bilirubin 0.5 Direct Bilirubin 0.3 AST 15 ALT 6 Alkaline Phosphatase 104 Troponin I High Sens 27.4 B-Natriuretic Peptide 381 H Total Protein 6.9 Albumin 3.2 L Urine Color YELLOW Urine Appearance HAZY Urine pH 5.5 Ur Specific [place] 1.025 Urine Protein 3+ H Urine Glucose (UA) 250 H Urine Ketones NEG Urine Blood 3+ H Urine Nitrite NEG Ur Leukocyte Esterase 2+ H Urine RBC 5-9 H Urine WBC 76-150 H Ur Squamous Epith Cells NONE Urine Bacteria 4+ COVID-19 (KIARRA) COVID-19 [facility] Com 12/15/20 12/15/20 13:28 14:19 MCV MCH MCHC RDW Plt Count MPV Immature Gran % (Auto) Neut % (Auto) Lymph % (Auto) [place] % (Auto) Eos % (Auto) Baso % (Auto) Lymph # (Auto) [place] # (Auto) Eos # (Auto) Baso # (Auto) Abs Immat Gran (auto) Absolute Neuts (auto) Absolute Nucleated RBC Nucleated RBC % (auto) PT INR Anion Gap Estim Creat Clear Calc Estimated GFR Random Glucose Lactic Acid Calcium Magnesium Total Bilirubin Direct Bilirubin AST ALT Alkaline Phosphatase Troponin I High Sens 30.5 B-Natriuretic Peptide Total Protein Albumin Urine Color Urine Appearance Urine pH Ur Specific [place] Urine Protein Urine Glucose (UA) Urine Ketones Urine Blood Urine Nitrite Ur Leukocyte Esterase Urine RBC Urine WBC Ur Squamous Epith Cells Urine Bacteria COVID-19 (KIARRA) Negative COVID-19 Clin Com See Note Imaging Radiologist's Impressions: Impressions Chest X-Ray 12/15/20 10:22 IMPRESSION: Left basilar haziness question effusion/atelectasis. Chest CT 12/15/20 12:07 IMPRESSION: Increased bilateral pleural effusions when compared to the prior study. There is associated bibasilar airspace changes likely due to atelectasis. I do not appreciate any new or dense consolidation when compared to prior study. Stable nonspecific pulmonary nodule in the medial aspect of the right upper lobe difficult to define further due to motion artifact on the study. This has been present on prior studies and measured up to 9 mm in size on the 07/13/2015 study as well suggesting more benign etiology. Assessment and Plan (1) Acute respiratory failure with hypoxia: Status: Acute (2) CHF (congestive heart failure): Status: Acute (3) UTI (urinary tract infection): Status: Acute 70 years old male with PMH of were neck encephalopathy secondary to chronic alcohol abuse, CMP with biventricular failure, CAD, CKD, AFib not on anticoagulation, diabetes among others who presented to the hospital from [facility] with reported increased shortness of breath and lower extremity swelling for the last 3-4 days. Acute hypoxic respiratory failure Secondary to acute systolic CHF exacerbation Elevated BNP with images suggestive of fluid overload Start IV Lasix Intake and output Keep on telemetry UTI History of ESBL E coli Start meropenem Follow urine culture Id consult Uncontrolled hypertension continue home medications Consider increasing amlodipine Monitor blood pressure Diabetes type 2 SSI Diabetic diet DVT PPX Heparin
--- NOTE | 2020-12-15 16:52 | PC.NURSE ---
RN AMANDA AWARE OF PATIENT HIGH BLOOD PRESSURE .
[2020-12-15] MEDS: Metoprolol Tartrate 100 MG TABLET PO (22:32)
[2020-12-15] MEDS: hydrALAZINE HCl 25 MG TABLET PO (22:32)
[2020-12-15] MEDS: Heparin Sodium,Porcine 5,000 UNIT/ML VIAL 5000 UNIT SUBCUT (22:32)
[2020-12-16] VITALS (9 sets, daily range): BP systolic 167–195; BP diastolic 75–105; PULSE 70–88; RESP 16–20; TEMP 36.6–37.1; O2SAT 91–96
[2020-12-16 06:55] LABS: MANUAL DIFF FLAG NO
[2020-12-16 07:03] LABS: Basophils Absolute Auto 0.1 X10*3/uL (0.0-0.2); Basophils Percent Auto 0.6 % (0-2); Eosinophils Absolute Auto 0.1 X10*3/uL (0.0-0.4); Eosinophils Percent Auto 1.6 % (0-4); Hematocrit 33.6 % (42-52); Hemoglobin 10.1 g/dl (14.0-18.0); Imm Gran Abs Auto 0.03 X10*3/uL (0.00-0.03); Imm Gran Pct Auto 0.4 % (0.0-0.4); Lymphocytes Absolute Auto 0.8 X10*3/uL (1.2-4.9); Lymphocytes Percent Auto 9.8 % (20-40); Mean Corpuscular HGB Conc 30.1 g/dl (31.0-36.0); Mean Corpuscular Hemoglobin 29.4 pg (27.0-33.0); Mean Platelet Volume 9.7 fL (9.4-12.4); Monocytes Absolute Auto 0.5 X10*3/uL (0.1-1.2); Monocytes Percent Auto 6.1 % (2-11); Neutrophils Absolute Auto 6.7 X10*3/uL (2.0-8.3); Neutrophils Percent Auto 81.5 % (45-73); Platelet Count 245 X10*3/uL (160-400); Red Blood Count 3.43 X10*6/uL (4.60-5.80); White Blood Count 8.2 X10*3/uL (4.8-10.8)
[2020-12-16 07:37] LABS: Anion Gap 16 (12-20); B Type Natriuretic Peptide 866 pg/mL (<100); Blood Urea Nitrogen 55 mg/dL (9-16); Calcium 8.2 mg/dL (8.4-10.2); Carbon Dioxide 18 mmol/L (22-29); Chloride 112 mmol/L (96-108); Creatinine Clr Calc Pharmacy 22.7; Estimated Glomerular Filt Rate 15; Glucose Random 112 mg/dL (60-115); Potassium 4.9 mmol/L (3.3-5.1); Sodium 141 mmol/L (135-145)
[2020-12-16 07:52] LABS: Glucose, Whole Blood 108 mg/dL (60-115)
[2020-12-16] MEDS: Tamsulosin HCL 0.4 MG CAPSULE PO (08:41)
[2020-12-16] MEDS: hydrALAZINE HCl 25 MG TABLET PO ×2 (08:41→14:54)
[2020-12-16] MEDS: Furosemide 40 MG/4 ML VIAL IVPUSH (08:41)
[2020-12-16] MEDS: 0.9 % Sodium Chloride Flush 3 ML SYRINGE IVFLUSH ×2 (08:41→14:54)
[2020-12-16] MEDS: Metoprolol Tartrate 100 MG TABLET PO ×2 (08:41→21:29)
[2020-12-16] MEDS: ARIPiprazole 10 MG TABLET PO (08:41)
[2020-12-16] MEDS: amLODIPine Besylate 5 MG TABLET 10 MG PO (08:53)
[2020-12-16] MEDS: Heparin Sodium,Porcine 5,000 UNIT/ML VIAL 5000 UNIT SUBCUT ×2 (10:32→21:30)
[2020-12-16 12:00] LABS: Glucose, Whole Blood 121 mg/dL (60-115)
--- NOTE | 2020-12-16 13:24 | P.PNIM_ITS ---
Subjective Subjective Date of Service: 12/16/20 Interval History: The patient was seen and evaluated this morning Laying in bed, looks in mild respiratory distress and reporting feeling short of breath On 4 L of oxygen Denies any fever, chills or chest pain No reported other overnight events Review of Systems No fever, chills No chest pain, palpitation Complaining of shortness of breath or coughing , swelling No abdominal pain, nausea or vomiting No urinary symptoms No any rash or wounds Physical Exam Vital Signs: Vital Signs: Last Vital Signs Temp 98.8 F 12/16/20 11:58 Pulse 74 12/16/20 11:58 Resp 17 12/16/20 11:58 BP 167/91 H 12/16/20 11:58 Pulse Ox 96 12/16/20 11:58 Body Mass Index 34.7 Const: Other: Constitutional : Alert, disoriented and mildly confused, not in distress Neck : Normal inspection, Supple Cardiovascular : RRR, S1 S2, +2 lower extremity edema Respiratory : Decreased bilateral air entry, and basal bilateral crackles, no wheezes or rhonchi Gastrointestinal: soft, lax, Normal bowel sounds, Non tender Skin : Warm/Dry, No rash Neurological : Alert & disoriented, No focal deficit Objective Data Current Medications Generic Name Dose Route Start Last Admin Trade Name Freq PRN Reason Stop Dose Admin Acetaminophen 650 mg 12/15/20 21:23 Acetaminophen 325 Mg Tablet PO Q6H PRN Pain, Mild (Pain Scale 1-3) Amlodipine Besylate 10 mg 12/16/20 09:00 12/16/20 08:53 Amlodipine Besylate 5 Mg Tablet PO 10 mg DAILY SHANE Administration Protocol Aripiprazole 10 mg 12/16/20 09:00 12/16/20 08:41 Aripiprazole 10 Mg Tablet PO 10 mg DAILY SHANE Administration Furosemide 40 mg 12/16/20 09:00 12/16/20 08:41 Furosemide 40 Mg/4 Ml Vial IVPUSH 40 mg DAILY SHANE Administration Protocol Heparin Sodium (Porcine) 5,000 unit 12/15/20 22:00 12/16/20 10:32 Heparin Sodium,Porcine 5,000 Unit/Ml Vial SUBCUT 5,000 unit Q12H SHANE Administration Hydralazine HCl 25 mg 12/15/20 21:23 12/16/20 08:41 Hydralazine Hcl 25 Mg Tablet PO 25 mg TID SHANE Administration Protocol Meropenem 500 mg/ Sodium 50 mls @ 100 mls/hr 12/15/20 23:00 12/16/20 11:57 Chloride IV Infused Q12H SHANE Infusion Metoprolol Tartrate 100 mg 12/15/20 21:23 12/16/20 08:41 Metoprolol Tartrate 100 Mg Tablet PO 100 mg BID SHANE Administration Protocol Ondansetron HCl 4 mg 12/15/20 21:23 Ondansetron Hcl 4 Mg/2 Ml Vial IVPUSH Q8H PRN Nausea and Vomiting Oxybutynin Chloride 10 mg 12/16/20 09:00 12/16/20 08:40 Oxybutynin Chloride Er 5 Mg Tab.Er.24 PO 10 mg DAILY SHANE Administration Sodium Chloride 3 ml 12/16/20 00:00 12/16/20 08:41 0.9 % Sodium Chloride Flush 3 Ml Syringe IVFLUSH 3 ml QSHIFT SHANE Administration Tamsulosin HCl 0.4 mg 12/16/20 09:00 12/16/20 08:41 Tamsulosin Hcl 0.4 Mg Capsule PO 0.4 mg DAILY SHANE Administration Labs CBC & Chem 7: 12/16/20 06:30 12/16/20 06:30 Microbiology Microbiology Results: Microbiology 12/15/20 10:57 Blood - Venous Blood Culture - Preliminary No growth after 24 hours. 12/15/20 10:51 Blood - Venous Blood Culture - Preliminary No growth after 24 hours. 12/15/20 00:00 Urine clean catch - Clean Catch Midstream Urine Culture - Preliminary Culture in progress. Assessment and Plan (1) Acute respiratory failure with hypoxia: Status: Acute (2) CHF (congestive heart failure): Status: Acute (3) UTI (urinary tract infection): Status: Acute Assessment and Plan: 70 years old male with PMH of were neck encephalopathy secondary to chronic alcohol abuse, CMP with biventricular failure, CAD, CKD, AFib not on an ticoagulation, diabetes among others who presented to the hospital from [facility] with reported increased shortness of breath and lower extremity swelling for the last 3-4 days. Acute hypoxic respiratory failure Secondary to acute systolic CHF exacerbation Elevated BNP with images suggestive of fluid overload Continue IV Lasix Intake and output Keep on telemetry UTI History of ESBL E coli Continue meropenem Follow urine culture Id consult Uncontrolled hypertension continue home medications Increased amlodipine to 10 mg Monitor blood pressure Diabetes type 2 SSI Diabetic diet DVT PPX Heparin
--- NOTE | 2020-12-16 14:06 | MHC.CM.PN ---
IMM 12/16/2020, pt admitrted w/hypoxia, chf and pna, pt is wheelchair bound, is an assist with all care and transfers, pt answers yes or no questions or will ignore staff, per [facility] SW pt can be combative however that is not his norm, IMM reviewed w/guardian Eguene Huddleston at 11:45am [phone]. D/C Plan: Return to [facility] for transport. PCP: Dr. Tr Florentino
[2020-12-16 16:20] LABS: Glucose, Whole Blood 106 mg/dL (60-115)
--- NOTE | 2020-12-16 16:23 | W.PM.IDCN ---
History of Present Illness Data of Consult Service Date: 12/16/20 Requesting physician: Kerry Ramos Primary Care Provider: DO DEREK De La Rosa Reason for consult: possible infection He presents to hospital with leg swelling from [facility]. 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[place] coronary artery without angina pectoris BPH (benign prostatic hyperplasia) Chronic kidney disease HTN (hypertension) Myocardial infarction Systolic heart failure Type 2 diabetes mellitus Unspecified convulsions Unspecified sequelae of cerebral infarction Wernickes encephalopathy Family History Family history: reviewed and not pertinent Social History Social History Household Members: None Housing: [facility] Other:: [facility] Do you presently have visiting nurse or other home services: No Patient Tobacco Use Status: Tobacco use Unknown Use of substances other than those prescribed or required for medical reasons: No Currently Displaying Signs/Symptoms of Drug Intoxication Withdrawal: No Have you been hit, kicked, punched, or otherwise hurt by someone within the past year? If so, by whom?: No Do you feel safe in your current relationship?: No Is there a partner from a previous relationship who is making you feel unsafe now?: No Are you made to feel afraid or neglected: No Advance Directives: No Advance Directives Information Provided: No Advance Directives on File: No Do you have thoughts of harming others: None Do you have a plan to hurt others: No Plan Nutrition Risks: No Nutritional Risk Poor oral hygiene: No service: No Current occupational status: disabled Meds Allergies Allergy/AdvReac Type Severity Reaction Status Date / Time haloperidol [From HALDOL] Allergy Unknown UNKNOWN Verified 12/15/20 10:28 penicillin V Allergy Unknown Unknown Verified 12/15/20 10:28 Penicillins [PENICILLINS] Allergy Unknown UNKNOWN Verified 12/15/20 10:28 Active Medications: Current Medications Generic Name Dose Route Start Last Admin Trade Name Freq PRN Reason Stop Dose Admin Acetaminophen 650 mg 12/15/20 21:23 Acetaminophen 325 Mg Tablet PO Q6H PRN Pain, Mild (Pain Scale 1-3) Amlodipine Besylate 10 mg 12/16/20 09:00 12/16/20 08:53 Amlodipine Besylate 5 Mg Tablet PO 10 mg DAILY SHANE Administration Protocol Aripiprazole 10 mg 12/16/20 09:00 12/16/20 08:41 Aripiprazole 10 Mg Tablet PO 10 mg DAILY SHANE Administration Furosemide 40 mg 12/16/20 09:00 12/16/20 08:41 Furosemide 40 Mg/4 Ml Vial IVPUSH 40 mg DAILY SHANE Administration Protocol Heparin Sodium (Porcine) 5,000 unit 12/15/20 22:00 12/16/20 10:32 Heparin Sodium,Porcine 5,000 Unit/Ml Vial SUBCUT 5,000 unit Q12H SHANE Administration Hydralazine HCl 50 mg 12/16/20 21:00 Hydralazine Hcl 50 Mg Tablet PO TID SHANE Protocol Metoprolol Tartrate 100 mg 12/15/20 21:23 12/16/20 08:41 Metoprolol Tartrate 100 Mg Tablet PO 100 mg BID SHANE Administration Protocol Ondansetron HCl 4 mg 12/15/20 21:23 Ondansetron Hcl 4 Mg/2 Ml Vial IVPUSH Q8H PRN Nausea and Vomiting Oxybutynin Chloride 10 mg 12/16/20 09:00 12/16/20 08:40 Oxybutynin Chloride Er 5 Mg Tab.Er.24 PO 10 mg DAILY SHANE Administration Sodium Chloride 3 ml 12/16/20 00:00 12/16/20 14:54 0.9 % Sodium Chloride Flush 3 Ml Syringe IVFLUSH 3 ml QSHIFT SHANE Administration Tamsulosin HCl 0.4 mg 12/16/20 09:00 12/16/20 08:41 Tamsulosin Hcl 0.4 Mg Capsule PO 0.4 mg DAILY SHANE Administration Home Medications Medication Instructions Recorded Confirmed Last Taken Type amlodipine 1 tab PO DAILY 12/15/20 12/15/20 Unknown History aripiprazole 1 tab PO DAILY 12/15/20 12/15/20 Unknown History calcium carbonate 1,000 mg PO DAILY 12/15/20 12/15/20 Unknown History dapagliflozin [Farxiga] 1 tab PO DAILY 12/15/20 12/15/20 Unknown History gemfibrozil 1 tab PO BID 12/15/20 12/15/20 Unknown History hydralazine 1 tab PO TID 12/15/20 12/15/20 Unknown History insulin lispro [Humalog KwikPen unit SUBCUT TIDAC 12/15/20 Unknown History Insulin] metoprolol tartrate 1 tab PO BID 12/15/20 12/15/20 Unknown History oxybutynin chloride 10 mg PO BID 12/15/20 12/15/20 Unknown History tamsulosin 1 cap PO DAILY 12/15/20 12/15/20 Unknown History Physical Exam Vital Signs: Vital Signs: Last Vital Signs Temp 98.2 F 12/16/20 15:00 Pulse 70 12/16/20 15:00 Resp 17 12/16/20 15:00 BP 172/86 H 12/16/20 15:00 Pulse Ox 92 12/16/20 15:00 Body Mass Index 34.7 Const: General: cooperative HENMT: Head: Yes normal to inspection Mouth: Normal oral and palatal mucosa present Eyes: General: appearance normal, both eyes and all related structures Resp: Effort & Inspection: normal respiratory effort Cardio: Rate: regular rate Rhythm: regular rhythm GI: Palpation (GI): Soft to palpation and nontender : General: Yes no CVA tenderness Back/Spine/Pelvis: Back: no CVA tenderness Skin: General skin exam: no rashes or lesions noted Extrem: General: Yes normal to inspection Results Labs CBC & Chem 7: 12/16/20 06:30 12/16/20 06:30 Labs: Short CBC 12/16/20 Range/Units 06:30 WBC 8.2 (4.8-10.8) X10*3/uL Hgb 10.1 L (14.0-18.0) g/dl Hct 33.6 L (42-52) % Plt Count 245 (160-400) X10*3/uL BMP 12/16/20 06:30 Sodium 141 Potassium 4.9 Chloride 112 H Carbon Dioxide 18 L BUN 55 H Creatinine 3.92 H Calcium 8.2 L Microbiology Microbiology Results: Microbiology 12/15/20 10:57 Blood - Venous Blood Culture - Preliminary No growth after 24 hours. 12/15/20 10:51 Blood - Venous Blood Culture - Preliminary No growth after 24 hours. 12/15/20 00:00 Urine clean catch - Clean Catch Midstream Urine Culture - Preliminary Culture in progress. Assessment and Plan (1) Acute respiratory failure with hypoxia: Status: Acute (2) CHF (congestive heart failure): Status: Acute (3) UTI (urinary tract infection): Status: Acute He has had probable urinary colonization He doesnt have any urinary symptoms He has no elevated WBC or fever Would hold antibiotics at this time Watch for symptoms
--- NOTE | 2020-12-16 16:34 | W.PM.IDCN ---
History of Present Illness Data of Consult Service Date: 12/16/20 Requesting physician: Kerry Ramos Primary Care Provider: DO DEREK De La Rosa Reason for consult: possible infection He presents to hospital with leg swelling from [facility]. 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 BPH (benign prostatic hyperplasia) Chronic kidney disease HTN (hypertension) Myocardial infarction Systolic heart failure Type 2 diabetes mellitus Unspecified convulsions Unspecified sequelae of cerebral infarction Wernickes encephalopathy Family History Family history: reviewed and not pertinent Social History Social History Household Members: None Housing: Half-Way Housing Other:: [facility] Do you presently have visiting nurse or other home services: No Patient Tobacco Use Status: Tobacco use Unknown Use of substances other than those prescribed or required for medical reasons: No Currently Displaying Signs/Symptoms of Drug Intoxication Withdrawal: No Have you been hit, kicked, punched, or otherwise hurt by someone within the past year? If so, by whom?: No Do you feel safe in your current relationship?: No Is there a partner from a previous relationship who is making you feel unsafe now?: No Are you made to feel afraid or neglected: No Advance Directives: No Advance Directives Information Provided: No Advance Directives on File: No Do you have thoughts of harming others: None Do you have a plan to hurt others: No Plan Nutrition Risks: No Nutritional Risk Poor oral hygiene: No service: No Current occupational status: disabled Meds Allergies Allergy/AdvReac Type Severity Reaction Status Date / Time haloperidol [From HALDOL] Allergy Unknown UNKNOWN Verified 12/15/20 10:28 penicillin V Allergy Unknown Unknown Verified 12/15/20 10:28 Penicillins [PENICILLINS] Allergy Unknown UNKNOWN Verified 12/15/20 10:28 Active Medications: Current Medications Generic Name Dose Route Start Last Admin Trade Name Freq PRN Reason Stop Dose Admin Acetaminophen 650 mg 12/15/20 21:23 Acetaminophen 325 Mg Tablet PO Q6H PRN Pain, Mild (Pain Scale 1-3) Amlodipine Besylate 10 mg 12/16/20 09:00 12/16/20 08:53 Amlodipine Besylate 5 Mg Tablet PO 10 mg DAILY SHANE Administration Protocol Aripiprazole 10 mg 12/16/20 09:00 12/16/20 08:41 Aripiprazole 10 Mg Tablet PO 10 mg DAILY SHANE Administration Furosemide 40 mg 12/16/20 09:00 12/16/20 08:41 Furosemide 40 Mg/4 Ml Vial IVPUSH 40 mg DAILY SHANE Administration Protocol Heparin Sodium (Porcine) 5,000 unit 12/15/20 22:00 12/16/20 10:32 Heparin Sodium,Porcine 5,000 Unit/Ml Vial SUBCUT 5,000 unit Q12H SHANE Administration Hydralazine HCl 50 mg 12/16/20 21:00 Hydralazine Hcl 50 Mg Tablet PO TID SHANE Protocol Metoprolol Tartrate 100 mg 12/15/20 21:23 12/16/20 08:41 Metoprolol Tartrate 100 Mg Tablet PO 100 mg BID SHANE Administration Protocol Ondansetron HCl 4 mg 12/15/20 21:23 Ondansetron Hcl 4 Mg/2 Ml Vial IVPUSH Q8H PRN Nausea and Vomiting Oxybutynin Chloride 10 mg 12/16/20 09:00 12/16/20 08:40 Oxybutynin Chloride Er 5 Mg Tab.Er.24 PO 10 mg DAILY SHANE Administration Sodium Chloride 3 ml 12/16/20 00:00 12/16/20 14:54 0.9 % Sodium Chloride Flush 3 Ml Syringe IVFLUSH 3 ml QSHIFT SHANE Administration Tamsulosin HCl 0.4 mg 12/16/20 09:00 12/16/20 08:41 Tamsulosin Hcl 0.4 Mg Capsule PO 0.4 mg DAILY SHANE Administration Home Medications Medication Instructions Recorded Confirmed Last Taken Type amlodipine 1 tab PO DAILY 12/15/20 12/15/20 Unknown History aripiprazole 1 tab PO DAILY 12/15/20 12/15/20 Unknown History calcium carbonate 1,000 mg PO DAILY 12/15/20 12/15/20 Unknown History dapagliflozin [Farxiga] 1 tab PO DAILY 12/15/20 12/15/20 Unknown History gemfibrozil 1 tab PO BID 12/15/20 12/15/20 Unknown History hydralazine 1 tab PO TID 12/15/20 12/15/20 Unknown History insulin lispro [Humalog KwikPen unit SUBCUT TIDAC 12/15/20 Unknown History Insulin] metoprolol tartrate 1 tab PO BID 12/15/20 12/15/20 Unknown History oxybutynin chloride 10 mg PO BID 12/15/20 12/15/20 Unknown History tamsulosin 1 cap PO DAILY 12/15/20 12/15/20 Unknown History Physical Exam Vital Signs: Vital Signs: Last Vital Signs Temp 98.2 F 12/16/20 15:00 Pulse 70 12/16/20 15:00 Resp 17 12/16/20 15:00 BP 172/86 H 12/16/20 15:00 Pulse Ox 92 12/16/20 15:00 Body Mass Index 34.7 Const: General: cooperative Resp: Effort & Inspection: normal respiratory effort GI: Palpation (GI): Soft to palpation and nontender Skin: General skin exam: no rashes or lesions noted Results Labs CBC & Chem 7: 12/16/20 06:30 12/16/20 06:30 Labs: Short CBC 12/16/20 Range/Units 06:30 WBC 8.2 (4.8-10.8) X10*3/uL Hgb 10.1 L (14.0-18.0) g/dl Hct 33.6 L (42-52) % Plt Count 245 (160-400) X10*3/uL BMP 12/16/20 06:30 Sodium 141 Potassium 4.9 Chloride 112 H Carbon Dioxide 18 L BUN 55 H Creatinine 3.92 H Calcium 8.2 L Microbiology Microbiology Results: Microbiology 12/15/20 10:57 Blood - Venous Blood Culture - Preliminary No growth after 24 hours. 12/15/20 10:51 Blood - Venous Blood Culture - Preliminary No growth after 24 hours. 12/15/20 00:00 Urine clean catch - Clean Catch Midstream Urine Culture - Preliminary Culture in progress. Assessment and Plan (1) Acute respiratory failure with hypoxia: Status: Acute (2) CHF (congestive heart failure): Status: Acute (3) UTI (urinary tract infection): Status: Acute He has no urinary symptoms and no fever or chills Would hold antibiotics at this time He may likely have colonization
[2020-12-16 20:19] LABS: Glucose, Whole Blood 144 mg/dL (60-115)
[2020-12-16] MEDS: hydrALAZINE HCl 50 MG TABLET PO (21:29)
[2020-12-17] VITALS (14 sets, daily range): BP systolic 134–176; BP diastolic 65–99; PULSE 62–84; RESP 16–22; TEMP 36.2–36.8; O2SAT 86–98; BMI 34.7
[2020-12-17 07:24] LABS: B Type Natriuretic Peptide 474 pg/mL (<100)
[2020-12-17 07:39] LABS: Anion Gap 14 (12-20); Blood Urea Nitrogen 59 mg/dL (9-16); Calcium 7.7 mg/dL (8.4-10.2); Carbon Dioxide 17 mmol/L (22-29); Chloride 113 mmol/L (96-108); Estimated Glomerular Filt Rate 16; Glucose Random 138 mg/dL (60-115); Potassium 4.4 mmol/L (3.3-5.1); Sodium 140 mmol/L (135-145)
[2020-12-17 08:02] LABS: Glucose, Whole Blood 122 mg/dL (60-115)
[2020-12-17] MEDS: Furosemide 40 MG/4 ML VIAL IVPUSH (09:04)
[2020-12-17] MEDS: 0.9 % Sodium Chloride Flush 3 ML SYRINGE IVFLUSH ×2 (09:04→15:26)
[2020-12-17] MEDS: Heparin Sodium,Porcine 5,000 UNIT/ML VIAL 5000 UNIT SUBCUT ×2 (09:04→20:12)
[2020-12-17] MEDS: ARIPiprazole 10 MG TABLET PO (09:05)
[2020-12-17] MEDS: Metoprolol Tartrate 100 MG TABLET PO ×2 (09:05→20:11)
[2020-12-17] MEDS: Tamsulosin HCL 0.4 MG CAPSULE PO (09:05)
[2020-12-17] MEDS: hydrALAZINE HCl 25 MG TABLET 75 MG PO ×3 (09:05→20:11)
[2020-12-17] MEDS: amLODIPine Besylate 5 MG TABLET 10 MG PO (09:06)
--- NOTE | 2020-12-17 09:38 | PC.NURSE ---
consult called to [facility] in Cardiology office
[2020-12-17 11:24] LABS: Glucose, Whole Blood 113 mg/dL (60-115)
--- NOTE | 2020-12-17 12:13 | P.CONCA_ITS ---
History of Present Illness History of Present Illness Date of Service: 12/17/20 Requesting physician: Kerry Ramos Consult reason: congestive heart failure Chief complaint: Hypokxia, CHF, PNA Narrative: We were asked to consult on [facility] for cardiology consultation today. History was mostly obtained from the chart. Patient is extremely poor historian. When I asked him what brought him to the hospital he is not able to elucidate but says that he was short of breath. He also was reported to have increasing leg edema. He has prior history of dementia question encephalopathy related to alcohol use, prior history of congestive heart failure in the past had biventricular dysfunction, however most recent echocardiogram at [facility] shows low normal LV systolic function with LVH with diastolic dysfunction as well as enlarged RV with reduce RV function. He also has chronic atrial fibrillation not on anticoagulation. He has chronic kidney disease, hypertension, diabetes. Patient admitted for hypertension and decompensated co ngestive heart failure. Has been diuresed with IV Lasix and seems like his BNP is improved however his intake and output chart is extremely inaccurate. His blood pressure on today's exam is better controlled. He does not appear to have any distress. Not complain of any other symptoms at this time. 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 BPH (benign prostatic hyperplasia) Chronic kidney disease HTN (hypertension) Myocardial infarction Systolic heart failure Type 2 diabetes mellitus Unspecified convulsions Unspecified sequelae of cerebral infarction Wernickes encephalopathy Family History Family history: reviewed and not pertinent Social History Social History Household Members: None Housing: Detention Housing Other:: [facility] Do you presently have visiting nurse or other home services: No Patient Tobacco Use Status: Tobacco use Unknown Use of substances other than those prescribed or required for medical reasons: No Currently Displaying Signs/Symptoms of Drug Intoxication Withdrawal: No Have you been hit, kicked, punched, or otherwise hurt by someone within the past year? If so, by whom?: No Do you feel safe in your current relationship?: No Is there a partner from a previous relationship who is making you feel unsafe now?: No Are you made to feel afraid or neglected: No Advance Directives: No Advance Directives Information Provided: No Advance Directives on File: No Do you have thoughts of harming others: None Do you have a plan to hurt others: No Plan Nutrition Risks: No Nutritional Risk Poor oral hygiene: No service: No Current occupational status: disabled Meds Allergies Allergy/AdvReac Type Severity Reaction Status Date / Time haloperidol [From HALDOL] Allergy Unknown UNKNOWN Verified 12/15/20 10:28 penicillin V Allergy Unknown Unknown Verified 12/15/20 10:28 Penicillins [PENICILLINS] Allergy Unknown UNKNOWN Verified 12/15/20 10:28 Active Medications: Current Medications Generic Name Dose Route Start Last Admin Trade Name Freq PRN Reason Stop Dose Admin Acetaminophen 650 mg 12/15/20 21:23 Acetaminophen 325 Mg Tablet PO Q6H PRN Pain, Mild (Pain Scale 1-3) Amlodipine Besylate 10 mg 12/16/20 09:00 12/17/20 09:06 Amlodipine Besylate 5 Mg Tablet PO 10 mg DAILY SHANE Administration Protocol Aripiprazole 10 mg 12/16/20 09:00 12/17/20 09:05 Aripiprazole 10 Mg Tablet PO 10 mg DAILY SHANE Administration Furosemide 40 mg 12/16/20 09:00 12/17/20 09:04 Furosemide 40 Mg/4 Ml Vial IVPUSH 40 mg DAILY SHANE Administration Protocol Heparin Sodium (Porcine) 5,000 unit 12/15/20 22:00 12/17/20 09:04 Heparin Sodium,Porcine 5,000 Unit/Ml Vial SUBCUT 5,000 unit Q12H SHANE Administration Hydralazine HCl 75 mg 12/17/20 09:00 12/17/20 09:05 Hydralazine Hcl 25 Mg Tablet PO 75 mg TID SHANE Administration Protocol Metoprolol Tartrate 100 mg 12/15/20 21:23 12/17/20 09:05 Metoprolol Tartrate 100 Mg Tablet PO 100 mg BID SHANE Administration Protocol Ondansetron HCl 4 mg 12/15/20 21:23 Ondansetron Hcl 4 Mg/2 Ml Vial IVPUSH Q8H PRN Nausea and Vomiting Oxybutynin Chloride 10 mg 12/16/20 09:00 12/17/20 09:04 Oxybutynin Chloride Er 5 Mg Tab.Er.24 PO 10 mg DAILY SHANE Administration Sodium Chloride 3 ml 12/16/20 00:00 12/17/20 09:04 0.9 % Sodium Chloride Flush 3 Ml Syringe IVFLUSH 3 ml QSHIFT SHANE Administration Tamsulosin HCl 0.4 mg 12/16/20 09:00 12/17/20 09:05 Tamsulosin Hcl 0.4 Mg Capsule PO 0.4 mg DAILY SHANE Administration Home Medications Medication Instructions Recorded Confirmed Last Taken Type amlodipine 1 tab PO DAILY 12/15/20 12/15/20 Unknown History aripiprazole 1 tab PO DAILY 12/15/20 12/15/20 Unknown History calcium carbonate 1,000 mg PO DAILY 12/15/20 12/15/20 Unknown History dapagliflozin [Farxiga] 1 tab PO DAILY 12/15/20 12/15/20 Unknown History gemfibrozil 1 tab PO BID 12/15/20 12/15/20 Unknown History hydralazine 1 tab PO TID 12/15/20 12/15/20 Unknown History insulin lispro [Humalog KwikPen unit SUBCUT TIDAC 12/15/20 Unknown History Insulin] metoprolol tartrate 1 tab PO BID 12/15/20 12/15/20 Unknown History oxybutynin chloride 10 mg PO BID 12/15/20 12/15/20 Unknown History tamsulosin 1 cap PO DAILY 12/15/20 12/15/20 Unknown History Physical Exam Vital Signs: Vital Signs: Last Vital Signs Temp 97.6 F 12/17/20 12:00 Pulse 65 12/17/20 12:00 Resp 17 12/17/20 12:00 BP 134/65 12/17/20 12:00 Pulse Ox 96 12/17/20 12:00 Body Mass Index 34.7 Const: General: cooperative, comfortable, no acute distress, alert, awake, confusion and tired appearing Nutritional Appearance: obese Orientation/consciousness: confusion HENMT: Head: Yes normocephalic and Yes atraumatic Neck: Neck: Yes trachea midline, Yes supple, Yes no JVD and Yes other (Large mass on the posterior aspect of the neck) Resp: Effort & Inspection: decreased respiratory effort Auscultation: no rales, no wheezes, breath sounds absent bilateral (Base) and diminished lung sounds Cardio: Palpation: abnormal PMI displaced PMI Rhythm: abnormal rhythm irregularly irregular Heart sounds: S1 normal heart sound present and S2 normal heart sound present GI: Inspection: Yes obesity Auscultation: normal bowel sounds Skin: General skin exam: no rashes or lesions noted Neuro: General: no focal motor deficits and confusion Extrem: General: No clubbing, No cyanosis and Yes edema Results Labs and Meds Result diagrams: 12/16/20 06:30 12/17/20 06:41 Lab results: Laboratory Results - last 24 hr 12/16/20 12/16/20 12/17/20 16:14 20:14 06:41 Sodium 140 Potassium 4.4 Chloride 113 H Carbon Dioxide 17 L Anion Gap 14 BUN 59 H Creatinine 3.86 H Estim Creat Clear Calc 23.0 Estimated GFR 16 POC Glucose 106 144 H Random Glucose 138 H Calcium 7.7 L D B-Natriuretic Peptide 12/17/20 12/17/20 12/17/20 06:41 07:36 11:08 Sodium Potassium Chloride Carbon Dioxide Anion Gap BUN Creatinine Estim Creat Clear Calc Estimated GFR POC Glucose 122 H 113 Random Glucose Calcium B-Natriuretic Peptide 474 H Assessment and Plan (1) CHF (congestive heart failure): Status: Acute Congestive heart failure with last echocardiogram from [facility] showing low normal LV systolic function but RV dilatation and systolic dysfunction with underlying diastolic dysfunction chronic atrial fibrillation with underlying multiple comorbidities including poor functional status, diabetes, advanced chronic kidney disease. Not sure if he understands the gravity of his medical situation. Overall prognosis is guarded. His blood pressure is better control on current medical regimen will continue to aggressively manage his hypertension with hydralazine, amlodipine and metoprolol therapy. Rate is adequately controlled. Not a candidate for oral anticoagulation therapy due to alcohol use, dementia and anemia and fall risk. Continue current IV diuresis for 1 more day. Strict intake and output chart needs to be maintained. Continue to trend BMP and BNP tomorrow. Can switch to oral Lasix tomorrow and may be discharged. Will sign of the case at current time. Thank you for allowing me to partake in his care Procedures Date of Service Date of Service: 12/17/20
--- NOTE | 2020-12-17 13:31 | HO.PM.IMPN ---
Subjective Subjective Date of Service: 12/17/20 Interval History: The patient was seen and evaluated this morning Laying in bed, looks in mildly tachypneic and in mild respiratory distress On 3 L of oxygen Denies any fever, chills or chest pain No reported other overnight events Review of Systems No fever, chills No chest pain, palpitation Complaining of shortness of breath or coughing , swelling No abdominal pain, nausea or vomiting No urinary symptoms No any rash or wounds Physical Exam Vital Signs: Vital Signs: Last Vital Signs Temp 97.6 F 12/17/20 12:00 Pulse 65 12/17/20 12:00 Resp 17 12/17/20 12:00 BP 134/65 12/17/20 12:00 Pulse Ox 96 12/17/20 12:00 Body Mass Index 34.7 Const: Other: Constitutional : Alert, disoriented and mildly confused, not in distress Neck : Normal inspection, Supple Cardiovascular : RRR, S1 S2, +1 lower extremity edema Respiratory : Decreased bilateral air entry, and basal bilateral crackles, no wheezes or rhonchi Gastrointestinal: soft, lax, Normal bowel sounds, Non tender Skin : Warm/Dry, No rash Neurological : Alert & disoriented, No focal deficit Objective Data Current Medications Generic Name Dose Route Start Last Admin Trade Name Freq PRN Reason Stop Dose Admin Acetaminophen 650 mg 12/15/20 21:23 Acetaminophen 325 Mg Tablet PO Q6H PRN Pain, Mild (Pain Scale 1-3) Amlodipine Besylate 10 mg 12/16/20 09:00 12/17/20 09:06 Amlodipine Besylate 5 Mg Tablet PO 10 mg DAILY SHANE Administration Protocol Aripiprazole 10 mg 12/16/20 09:00 12/17/20 09:05 Aripiprazole 10 Mg Tablet PO 10 mg DAILY SHANE Administration Furosemide 40 mg 12/16/20 09:00 12/17/20 09:04 Furosemide 40 Mg/4 Ml Vial IVPUSH 40 mg DAILY SHANE Administration Protocol Heparin Sodium (Porcine) 5,000 unit 12/15/20 22:00 12/17/20 09:04 Heparin Sodium,Porcine 5,000 Unit/Ml Vial SUBCUT 5,000 unit Q12H SHANE Administration Hydralazine HCl 75 mg 12/17/20 09:00 12/17/20 09:05 Hydralazine Hcl 25 Mg Tablet PO 75 mg TID SHANE Administration Protocol Metoprolol Tartrate 100 mg 12/15/20 21:23 12/17/20 09:05 Metoprolol Tartrate 100 Mg Tablet PO 100 mg BID SHANE Administration Protocol Ondansetron HCl 4 mg 12/15/20 21:23 Ondansetron Hcl 4 Mg/2 Ml Vial IVPUSH Q8H PRN Nausea and Vomiting Oxybutynin Chloride 10 mg 12/16/20 09:00 12/17/20 09:04 Oxybutynin Chloride Er 5 Mg Tab.Er.24 PO 10 mg DAILY SHANE Administration Sodium Chloride 3 ml 12/16/20 00:00 12/17/20 09:04 0.9 % Sodium Chloride Flush 3 Ml Syringe IVFLUSH 3 ml QSHIFT SHANE Administration Tamsulosin HCl 0.4 mg 12/16/20 09:00 12/17/20 09:05 Tamsulosin Hcl 0.4 Mg Capsule PO 0.4 mg DAILY SHANE Administration Labs CBC & Chem 7: 12/16/20 06:30 12/17/20 06:41 Microbiology Microbiology Results: Microbiology 12/15/20 10:57 Blood - Venous Blood Culture - Preliminary No growth after 48 hours. 12/15/20 10:51 Blood - Venous Blood Culture - Preliminary No growth after 48 hours. 12/15/20 00:00 Urine clean catch - Clean Catch Midstream Urine Culture - Preliminary Gram negative maggi Assessment and Plan (1) Acute respiratory failure with hypoxia: Status: Acute (2) CHF (congestive heart failure): Status: Acute (3) UTI (urinary tract infection): Status: Acute Assessment and Plan: 70 years old male with PMH of were neck encephalopathy secondary to chronic alcohol abuse, CMP with biventricular failure, CAD, CKD, AFib not on anticoagulation, diabetes among others who presented to the hospital from [facility] with reported increased shortness of breath and lower extremity swelling for the last 3-4 days. Acute hypoxic respiratory failure Secondary to acute diastolic CHF exacerbation Elevated BNP, to follow Continue IV Lasix Intake and output Keep on telemetry cardiology input appreciated, IV lasix for one more day UTI History of ESBL E coli U.Cx growing GNR, pending final sensitivity discontinue meropenem ID input appreciated, dc Abx could be colonization Uncontrolled hypertension continue Hydralazine and Metoprolol Increased amlodipine to 10 mg Monitor blood pressure Diabetes type 2 SSI Diabetic diet DVT PPX Heparin Dispo: to dc back to [facility] once stable
[2020-12-17 16:38] LABS: Glucose, Whole Blood 96 mg/dL (60-115)
[2020-12-17 20:21] LABS: Glucose, Whole Blood 133 mg/dL (60-115)
[2020-12-18 04:00] VITALS: BP 140/72; PULSE 74; RESP 19; TEMP 36.4; O2SAT 95
[2020-12-18 07:18] LABS: B Type Natriuretic Peptide 372 pg/mL (<100)
[2020-12-18 07:19] LABS: Anion Gap 13 (12-20); Blood Urea Nitrogen 61 mg/dL (9-16); Calcium 7.9 mg/dL (8.4-10.2); Carbon Dioxide 20 mmol/L (22-29); Chloride 113 mmol/L (96-108); Creatinine Clr Calc Pharmacy 23.1; Estimated Glomerular Filt Rate 16; Glucose Random 95 mg/dL (60-115); Potassium 4.2 mmol/L (3.3-5.1); Sodium 142 mmol/L (135-145)
[2020-12-18 07:39] VITALS: BP 166/87; PULSE 73; RESP 19; TEMP 36.8; O2SAT 95
[2020-12-18 07:48] LABS: Glucose, Whole Blood 92 mg/dL (60-115)
[2020-12-18] MEDS: Tamsulosin HCL 0.4 MG CAPSULE PO (09:11)
[2020-12-18] MEDS: Metoprolol Tartrate 100 MG TABLET PO ×2 (09:11→21:14)
[2020-12-18] MEDS: 0.9 % Sodium Chloride Flush 3 ML SYRINGE IVFLUSH ×2 (09:11→17:53)
[2020-12-18] MEDS: amLODIPine Besylate 5 MG TABLET 10 MG PO (09:11)
[2020-12-18] MEDS: ARIPiprazole 10 MG TABLET PO (09:12)
[2020-12-18] MEDS: hydrALAZINE HCl 25 MG TABLET 75 MG PO ×3 (09:12→21:14)
[2020-12-18] MEDS: Furosemide 40 MG/4 ML VIAL IVPUSH ×2 (09:13→17:52)
[2020-12-18] MEDS: Heparin Sodium,Porcine 5,000 UNIT/ML VIAL 5000 UNIT SUBCUT ×2 (09:13→21:12)
[2020-12-18 11:16] LABS: Glucose, Whole Blood 122 mg/dL (60-115)
[2020-12-18 11:19] VITALS: BP 138/75; PULSE 68; RESP 20; TEMP 36.9; O2SAT 95
--- NOTE | 2020-12-18 11:59 | HO.PM.IMPN ---
Subjective Subjective Date of Service: 12/18/20 Interval History: doesnt report sob, but appears tachypneic and using accessory muscles Cardiovascular Cardiovascular: Reports no additional cardiovascular complaints Gastrointestinal Gastrointestinal: Reports no additional gastrointestinal complaints Physical Exam Vital Signs: Vital Signs: Last Vital Signs Temp 98.4 F 12/18/20 11:19 Pulse 68 12/18/20 11:19 Resp 20 12/18/20 11:19 BP 138/75 12/18/20 11:19 Pulse Ox 95 12/18/20 11:19 Body Mass Index 34.7 General: AO X 3, tachypnea Resp: diminished CVS: S1,S2,RRR GI: soft, non tender, non distended Neuro: motor grossly intact Psych: appropriate affect Objective Data Current Medications Generic Name Dose Route Start Last Admin Trade Name Freq PRN Reason Stop Dose Admin Acetaminophen 650 mg 12/15/20 21:23 Acetaminophen 325 Mg Tablet PO Q6H PRN Pain, Mild (Pain Scale 1-3) Amlodipine Besylate 10 mg 12/16/20 09:00 12/18/20 09:11 Amlodipine Besylate 5 Mg Tablet PO 10 mg DAILY SHANE Administration Protocol Aripiprazole 10 mg 12/16/20 09:00 12/18/20 09:12 Aripiprazole 10 Mg Tablet PO 10 mg DAILY SHANE Administration Furosemide 40 mg 12/16/20 09:00 12/18/20 09:13 Furosemide 40 Mg/4 Ml Vial IVPUSH 40 mg DAILY SHANE Administration Protocol Heparin Sodium (Porcine) 5,000 unit 12/15/20 22:00 12/18/20 09:13 Heparin Sodium,Porcine 5,000 Unit/Ml Vial SUBCUT 5,000 unit Q12H SHANE Administration Hydralazine HCl 75 mg 12/17/20 09:00 12/18/20 09:12 Hydralazine Hcl 25 Mg Tablet PO 75 mg TID SHANE Administration Protocol Metoprolol Tartrate 100 mg 12/15/20 21:23 12/18/20 09:11 Metoprolol Tartrate 100 Mg Tablet PO 100 mg BID SHANE Administration Protocol Ondansetron HCl 4 mg 12/15/20 21:23 Ondansetron Hcl 4 Mg/2 Ml Vial IVPUSH Q8H PRN Nausea and Vomiting Oxybutynin Chloride 10 mg 12/16/20 09:00 12/18/20 09:11 Oxybutynin Chloride Er 5 Mg Tab.Er.24 PO 10 mg DAILY SHANE Administration Sodium Chloride 3 ml 12/16/20 00:00 12/18/20 09:11 0.9 % Sodium Chloride Flush 3 Ml Syringe IVFLUSH 3 ml QSHIFT SHANE Administration Tamsulosin HCl 0.4 mg 12/16/20 09:00 12/18/20 09:11 Tamsulosin Hcl 0.4 Mg Capsule PO 0.4 mg DAILY SHANE Administration Labs CBC & Chem 7: 12/16/20 06:30 12/18/20 06:32 Microbiology Microbiology Results: Microbiology 12/15/20 00:00 Urine clean catch - Clean Catch Midstream Urine Culture - Final Escherichia coli 12/15/20 10:57 Blood - Venous Blood Culture - Preliminary No growth after 48 hours. 12/15/20 10:51 Blood - Venous Blood Culture - Preliminary No growth after 48 hours. Assessment and Plan (1) Acute respiratory failure with hypoxia: Status: Acute (2) CHF (congestive heart failure): Status: Acute (3) UTI (urinary tract infection): Status: Acute Assessment and Plan: 70 years old male with PMH of [place]ern[place] encephalopathy secondary to chronic alcohol abuse, CMP with biventricular failure, CAD, CKD, AFib not on anticoagulation, diabetes among others who presented to the hospital from [facility] with reported increased shortness of breath and lower extremity swelling for the last 3-4 days. Acute hypoxic respiratory failure Secondary to acute on chronic CHF exacerbation with recovered EF and diastolic dysfunction Continue IV Lasix still appears sob and edematous, will continue iv diuresis UTI History of ESBL E coli U.Cx growing GNR, pending final sensitivity discontinue meropenem ID input appreciated, dc Abx could be colonization hypertension continue Hydralazine and Metoprolol Increased amlodipine to 10 mg Monitor blood pressure CKD IV stable, montior closely while diuresing Diabetes type 2 SSI Diabetic diet DVT PPX Heparin Dispo: to dc back to [facility] once stable
[2020-12-18 15:40] VITALS: BP 150/84; PULSE 64; RESP 16; TEMP 36.4; O2SAT 95
[2020-12-18 16:27] LABS: Glucose, Whole Blood 135 mg/dL (60-115)
[2020-12-18 19:23] VITALS: BP 149/84; PULSE 70; RESP 18; TEMP 36.8; O2SAT 93
[2020-12-18 20:43] LABS: Glucose, Whole Blood 121 mg/dL (60-115)
[2020-12-18 21:14] VITALS: BP 149/84; PULSE 70
[2020-12-19] VITALS: BP 158/85; PULSE 70; RESP 16; TEMP 36.3; O2SAT 90
[2020-12-19] MEDS: 0.9 % Sodium Chloride Flush 3 ML SYRINGE IVFLUSH ×2 (00:20→09:46)
[2020-12-19 04:00] VITALS: BP 156/71; PULSE 65; RESP 16; TEMP 36.5; O2SAT 94
[2020-12-19 06:31] VITALS: BMI 34.2
[2020-12-19 06:50] LABS: Hematocrit 29.1 % (42-52); Hemoglobin 8.8 g/dl (14.0-18.0); Mean Corpuscular HGB Conc 30.2 g/dl (31.0-36.0); Mean Corpuscular Hemoglobin 29.4 pg (27.0-33.0); Mean Corpuscular Volume 97.3 fL (80-98); Platelet Count 229 X10*3/uL (160-400); Red Blood Count 2.99 X10*6/uL (4.60-5.80); Red Cell Distribution Width 15.9 % (11.0-16.0)
[2020-12-19 07:00] LABS: Anion Gap 15 (12-20); Blood Urea Nitrogen 65 mg/dL (9-16); Calcium 8.2 mg/dL (8.4-10.2); Carbon Dioxide 21 mmol/L (22-29); Chloride 111 mmol/L (96-108); Creatinine Clr Calc Pharmacy 22.8; Estimated Glomerular Filt Rate 15; Glucose Fasting 119 mg/dL (60-99); Magnesium 2.2 mg/dL (1.6-2.6); Potassium 3.9 mmol/L (3.3-5.1); Sodium 143 mmol/L (135-145)
[2020-12-19 07:04] LABS: B Type Natriuretic Peptide 371 pg/mL (<100)
[2020-12-19 07:33] VITALS: BP 165/83; PULSE 67; RESP 17; TEMP 36.9; O2SAT 94
[2020-12-19 07:49] LABS: Glucose, Whole Blood 112 mg/dL (60-115)
--- NOTE | 2020-12-19 09:36 | PM.DS ---
DS: Providers Provider Date of Service: 12/19/20 Date of admission: 12/15/20 16:24 Primary care physician: Tr Florentino DO Consults: 12/15/20 21:23 Consult to Infectious Diseases Routine Consulting Provider: Joanie Christensen Reason for consultation: Hx ESBL UTI\possible colonization. 12/17/20 07:50 Consult to Cardiology Routine Consulting Provider: Kapil Shelby Reason for consultation: Eval and rec for acute CHF, Hx CMP w CKD DS: Diagnosis Discharge Diagnosis (1) Acute respiratory failure with hypoxia: Status: Acute (2) CKD (chronic kidney disease), stage IV: Status: Acute (3) Acute on chronic combined systolic (congestive) and diastolic (congestive) heart failure: Status: Acute (4) HTN (hypertension): Status: Acute DS: Medications Discharge Medications Home Medications: Home Medications Medication Instructions Recorded Confirmed Farxiga 1 tab PO DAILY 12/15/20 12/15/20 aripiprazole 1 tab PO DAILY 12/15/20 12/15/20 calcium carbonate 1,000 mg PO DAILY 12/15/20 12/15/20 gemfibrozil 1 tab PO BID 12/15/20 12/15/20 insulin lispro [Humalog KwikPen unit SUBCUT TIDAC 12/15/20 Insulin] metoprolol tartrate 1 tab PO BID 12/15/20 12/15/20 oxybutynin chloride 10 mg PO BID 12/15/20 12/15/20 tamsulosin 1 cap PO DAILY 12/15/20 12/15/20 Previous Rx's Medication Instructions Recorded amlodipine 10 mg PO DAILY #0 tab 12/19/20 furosemide 40 mg PO DAILY #0 tab 12/19/20 hydralazine 75 mg PO TID #0 tab 12/19/20 DS: Summary Hospital Course Hospital Course: patient was admitted for acute hypoxic respiratory failure due to acute on chronic combined systolic and diastolic chf. he was diuresed with iv lasix and symptoms improved. his creatinine was watched closely and remained stable. his hypertension appeared poorly controlled, therefore, his amlodipine was increased to 10mg daily and hydralazine to 75mg tid. he will also be discharged on 40mg daily of lasix. Time Spent with Patient Time attestation: Total time spent providing and/or coordinating discharge services: Discharge coordination time: Greater than 30 minutes Quality: Stroke Does the patient have a stroke diagnosis?: No Physical Exam Vital Signs: Vital Signs: Last Vital Signs Temp 98.5 F 12/19/20 07:33 Pulse 67 12/19/20 07:33 Resp 17 12/19/20 07:33 BP 165/83 H 12/19/20 07:33 Pulse Ox 94 12/19/20 07:33 Body Mass Index 34.2 General: AO X 3, tachypnea Resp: diminished CVS: S1,S2,RRR GI: soft, non tender, non distended Neuro: motor grossly intact Psych: appropriate affect DS: Data Data Completed and Pending Labs on day of discharge: Laboratory Results - last 24 hr 12/18/20 12/18/20 12/18/20 11:03 16:23 20:39 WBC RBC Hgb Hct MCV MCH MCHC RDW Plt Count MPV Absolute Nucleated RBC Nucleated RBC % (auto) Sodium Potassium Chloride Carbon Dioxide Anion Gap BUN Creatinine Estim Creat Clear Calc Estimated GFR POC Glucose 122 H 135 H 121 H Fasting Glucose Calcium Magnesium B-Natriuretic Peptide 12/19/20 12/19/20 12/19/20 06:06 06:06 06:06 WBC 6.0 RBC 2.99 L Hgb 8.8 L Hct 29.1 L MCV 97.3 MCH 29.4 MCHC 30.2 L RDW 15.9 Plt Count 229 MPV 10.0 Absolute Nucleated RBC 0.000 Nucleated RBC % (auto) 0.0 Sodium 143 Potassium 3.9 Chloride 111 H Carbon Dioxide 21 L Anion Gap 15 BUN 65 H Creatinine 3.88 H Estim Creat Clear Calc 22.8 Estimated GFR 15 POC Glucose Fasting Glucose 119 H Calcium 8.2 L Magnesium 2.2 B-Natriuretic Peptide 371 H 12/19/20 07:31 WBC RBC Hgb Hct MCV MCH MCHC RDW Plt Count MPV Absolute Nucleated RBC Nucleated RBC % (auto) Sodium Potassium Chloride Carbon Dioxide Anion Gap BUN Creatinine Estim Creat Clear Calc Estimated GFR POC Glucose 112 Fasting Glucose Calcium Magnesium B-Natriuretic Peptide Preliminary micro results at discharge 12/15/20 10:57 Blood Culture - Preliminary Blood - Venous No growth after 48 hours. 12/15/20 10:51 Blood Culture - Preliminary Blood - Venous No growth after 48 hours. Discharge Plan Discharge Patient Disposition: [facility] Discharge Diagnosis: chf Referrals: Tr Florentino DO [Primary Care Provider] - 1 Week Discharge Medications: New furosemide 40 mg Tablet 40 mg PO DAILY Qty: 0 RF: 0 hydralazine 25 mg Tablet 75 mg PO TID Qty: 0 RF: 0 amlodipine 5 mg Tablet 10 mg PO DAILY Qty: 0 RF: 0 Continued metoprolol tartrate 100 mg tablet 1 tab PO BID RF: 0 gemfibrozil 600 mg tablet 1 tab PO BID RF: 0 insulin lispro [Humalog KwikPen Insulin] 100 unit/mL insulin pen subcut TIDAC RF: 0 aripiprazole 10 mg tablet 1 tab PO DAILY RF: 0 Farxiga 5 mg tablet 1 tab PO DAILY RF: 0 tamsulosin 0.4 mg capsule 1 cap PO DAILY RF: 0 oxybutynin chloride 5 mg tablet 10 mg PO BID RF: 0 calcium carbonate 500 mg Wafer 1,000 mg PO DAILY RF: 0 Discontinued hydralazine 25 mg tablet 1 tab PO TID RF: 0 amlodipine 5 mg tablet 1 tab PO DAILY RF: 0 Discharge Orders: Discharge Order (Routine); Ordered 12/19/20 Ordered By: Osmani Wall Diet: advance to usual diet Activity on Discharge: As tolerated Stand Alone Forms: Patient Portal Discharge page Care Plan Goals: manage chf, htn Health Concerns: chf, ckd, htn Plan of Treatment: increased amlodipine and hydralazine, started on lasix Assessment: see above
[2020-12-19] MEDS: Furosemide 40 MG TABLET PO (09:46)
[2020-12-19] MEDS: Metoprolol Tartrate 100 MG TABLET PO (09:46)
[2020-12-19] MEDS: ARIPiprazole 10 MG TABLET PO (09:46)
[2020-12-19] MEDS: amLODIPine Besylate 5 MG TABLET 10 MG PO (09:46)
[2020-12-19] MEDS: hydrALAZINE HCl 25 MG TABLET 75 MG PO (09:46)
[2020-12-19] MEDS: Tamsulosin HCL 0.4 MG CAPSULE PO (09:46)
[2020-12-19] MEDS: Heparin Sodium,Porcine 5,000 UNIT/ML VIAL 5000 UNIT SUBCUT (09:49)
[2020-12-19 11:17] LABS: Glucose, Whole Blood 149 mg/dL (60-115)
[2020-12-19 11:21] VITALS: BP 158/80; PULSE 69; RESP 19; TEMP 36.7; O2SAT 97
--- NOTE | 2020-12-19 11:56 | MHC.CM.PN ---
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 [employer] MEDICAL RECORD REVIEWED CASE DISCUSSED WITH STAFF NURSE AND ON MULTIPLE DISCIPLIANRY ROUNDS, CALLED TO [facility] SPOKE WITH PATIENTS NURSE CODY INFORMED HER OF THE DISCHARGE AND HIS NEW MEDUICATIONS , FAXED CLINICAL AND DISCHARGE SUMMARY AND D/C INSTRUCTION S TO THEM, INFORMED PATIENT GUARDIAN YULISSA [facility] [phone] REVIEWD MEDICARE IMM WITH HIM, AND HE REQUESTED THAT I LEAVE IT WITH PATIENTS VHART, INFOMRED HIM OF DIACHARGE AND TRANSPORTATION BY [facility] AT 1;30 WITH HIS APPROVAL DISCHARGE PLAN RETURM BACK TO [facility] TODAY [facility]IA [facility] AT 1;30
[2020-12-19 12:34] LABS: COVID-19 Test Negative (Negative)
== END 2020-12-19 13:53 | disposition skilled nursing facility (03) | DRG 189 ==
LOC: HO.ED 16:32 → HO.EDOVER 17:14 → HO.S3 21:04
PROVIDERS: Nurse Practitioner Family; Admitting Provider Student in an Organized Health Care Education/Training Program; Emergency Provider Emergency Medicine Emergency Medical Services; PCP Hospitalist; Visit Provider Internal Medicine
DX: J96.01 Acute respiratory failure with hypoxia (principal); I50.43 Acute on chronic combined systolic (congestive) and diastolic (congestive) heart failure; N39.0 Urinary tract infection, site not specified; I13.0 Hypertensive heart and chronic kidney disease with heart failure and stage 1 through stage 4 chronic kidney disease, or unspecified chronic kidney disease; N18.4 Chronic kidney disease, stage 4 (severe); F10.10 Alcohol abuse, uncomplicated; N40.0 Benign prostatic hyperplasia without lower urinary tract symptoms; E11.22 Type 2 diabetes mellitus with diabetic chronic kidney disease; Z20.822 Contact with and (suspected) exposure to COVID-19; Z88.0 Allergy status to penicillin; Z79.4 Long term (current) use of insulin; Z79.899 Other long term (current) drug therapy
CPT/HCPCS: 36415; 71046; 71250; 80048; 80076; 81001; 81003; 82947; 83605; 83735; 83880; 84484; 85025; 85027; 85610; 87040; 87086; 87088; 87186; 87635; 93005; 97161; 99285; J0696; J1940; J2185

== ENCOUNTER → 2021-03-11 14:48 | Outpatient (BNVA) | payer MEDICARE, MEDICAID, SELFPAY | PROVIDERS: PCP Hospitalist; Visit Provider Urology | DX: R39.15 Urgency of urination (principal); N40.1 Benign prostatic hyperplasia with lower urinary tract symptoms; N13.8 Other obstructive and reflux uropathy; R97.20 Elevated prostate specific antigen [PSA]; N17.9 Acute kidney failure, unspecified; N18.9 Chronic kidney disease, unspecified; E11.9 Type 2 diabetes mellitus without complications; I10 Essential (primary) hypertension; I48.91 Unspecified atrial fibrillation; Z88.0 Allergy status to penicillin; Z88.8 Allergy status to other drugs, medicaments and biological substances | CPT/HCPCS: 99212 ==

== ENCOUNTER 2021-03-23 14:44 | Inpatient (IN) | payer MEDICARE, MEDICAID, SELFPAY ==
--- NOTE | ~2021-03-23 | XR_ITS ---
EXAMINATION: XR CHEST CLINICAL INFORMATION: Shortness of breath, history of COPD, CHF COMPARISON: Prior chest radiographs, most recently 12/15/2020 TECHNIQUE: Frontal view of the chest was obtained. FINDINGS: There are small bilateral pleural effusions and atelectasis. There are regions of airways thickening and subsegmental atelectasis. The cardiomediastinal contours are similar to prior and there may be mild pulmonary vascular congestion. Structures of the chest wall are unchanged. XR/XR chest 1V IMPRESSION: Small bilateral pleural effusions and atelectasis with areas of airways thickening with mild pulmonary vascular congestion. Cardiogenic edema could have this appearance as well as superimposed airways inflammatory process.
--- NOTE | ~2021-03-23 | XR_ITS ---
EXAMINATION: XR CHEST CLINICAL INFORMATION: This is a 70-year-old male with a temperature. Fever. COMPARISON: Comparison is made to the previous study dated 03/23/2021. TECHNIQUE: Frontal view of the chest was obtained. FINDINGS: There is mild cardiomegaly. There are increased patchy ill-defined infiltrates bilaterally. This is most prominent in the left perihilar and right infrahilar region. This is suspicious for subsegmental pneumonitis. There is obscuration and haziness overlying the hemidiaphragms bilaterally. This may also represent subsegmental pneumonitis. The central pulmonary vasculature also appears more prominent on this study. The upper lobe pulmonary vascularity appears within normal limits. No large pleural effusions are seen. There is no pneumothorax. The bony structures are within normal limits. XR/XR chest 1V IMPRESSION: 1. There are bilateral patchy subsegmental infiltrates suspicious for acute pneumonitis.
--- NOTE | ~2021-03-23 | IR_ITS ---
PROCEDURE: IR INSERTION OF CENTRAL VENOUS CATHETER CLINICAL INFORMATION: Needs temporary dialysis catheter as the previous dialysis catheter was pulled out. COMPARISON: Right temporary dialysis catheter 03/26/2021. TECHNIQUE: Following explaining procedure, benefits and risk of the right temporal dialysis catheter to patient's guardian, a written consent was obtained. Patient was placed supine on fluoroscopy table in IR room and preliminary ultrasound imaging was obtained to the right neck. An optimal site was selected and marked. Marked site was cleaned and draped in usual sterile manner. 1% lidocaine was injected at puncture site. Under sterile ultrasound guidance a single wall needle was advanced and right internal jugular vein was punctured. After obtaining venous return, a thin guidewire was advanced through the needle and needle withdrawn. A 5-Tanzanian dilator with sheath was inserted over the guidewire and the guidewire was removed. The dilator was removed and a 0.035 J-wire was advanced through the sheath into the IVC under fluoroscopy. The 5-Tanzanian dilator was removed and the tract was dilated to 12 Tanzanian dilators. Subsequently, a Tanzanian temporary dialysis catheter was advanced over the guidewire and the guidewire was removed. Both lumens of the catheter flushed with saline followed by heparin. The catheter was anchored to the skin with 3-0 nylon sutures. Simple dressing was placed at the puncture site. Patient tolerated procedure extremely well. No conscious sedation was utilized. All elements of maximal sterile barrier technique followed including use of cap, mask, sterile gown, sterile gloves, a sterile full body drape and hand hygiene. Also followed skin preparation with 2% chlorhexidine for cutaneous antisepsis, and sterile ultrasound preparation with sterile gel and probe cover when applicable. FINDINGS: On preliminary ultrasound imaging, right internal jugular vein is widely patent. Approximately a13 cm long 12 [place] right temporary dialysis catheter was inserted with its tip in the proximal SVC. The catheter is ready for use. IR/IR us guide venous access IMPRESSION: Successful ultrasound and fluoroscopy-guided guided placement of a right temporary dialysis catheter. The catheter is ready for use.
--- NOTE | ~2021-03-23 | IR_ITS ---
PROCEDURE: IR INSERTION OF CENTRAL VENOUS CATHETER CLINICAL INFORMATION: Needs temporary dialysis catheter as the previous dialysis catheter was pulled out. COMPARISON: Right temporary dialysis catheter 03/26/2021. TECHNIQUE: Following explaining procedure, benefits and risk of the right temporal dialysis catheter to patient's guardian, a written consent was obtained. Patient was placed supine on fluoroscopy table in IR room and preliminary ultrasound imaging was obtained to the right neck. An optimal site was selected and marked. Marked site was cleaned and draped in usual sterile manner. 1% lidocaine was injected at puncture site. Under sterile ultrasound guidance a single wall needle was advanced and right internal jugular vein was punctured. After obtaining venous return, a thin guidewire was advanced through the needle and needle withdrawn. A 5-[place]ian dilator with sheath was inserted over the guidewire and the guidewire was removed. The dilator was removed and a 0.035 J-wire was advanced through the sheath into the IVC under fluoroscopy. The 5-[place]amanian dilator was removed and the tract was dilated to 12 Guamanian dilators. Subsequently, a Guamanian temporary dialysis catheter was advanced over the guidewire and the guidewire was removed. Both lumens of the catheter flushed with saline followed by heparin. The catheter was anchored to the skin with 3-0 nylon sutures. Simple dressing was placed at the puncture site. Patient tolerated procedure extremely well. No conscious sedation was utilized. All elements of maximal sterile barrier technique followed including use of cap, mask, sterile gown, sterile gloves, a sterile full body drape and hand hygiene. Also followed skin preparation with 2% chlorhexidine for cutaneous antisepsis, and sterile ultrasound preparation with sterile gel and probe cover when applicable. FINDINGS: On preliminary ultrasound imaging, right internal jugular vein is widely patent. Approximately a13 cm long 12 Guamanian right temporary dialysis catheter was inserted with its tip in the proximal SVC. The catheter is ready for use. IR/IR cvc insert non tunnel IMPRESSION: Successful ultrasound and fluoroscopy-guided guided placement of a right temporary dialysis catheter. The catheter is ready for use.
--- NOTE | ~2021-03-23 | IR_ITS ---
PROCEDURE: IR INSERTION OF TUNNEL CATHETER UNDER ULTRASOUND AND FLUOROSCOPY. CLINICAL INFORMATION: Elevated creatinine. Urosepsis. COMPARISON: None TECHNIQUE: Following explaining ultrasound fluoroscopy-guided placement of temporary dialysis catheter procedure, benefits and risk with patient's guardian, a telephone consent was obtained in presence of IR nurse Tg. Patient was placed supine on fluoroscopy table in IR. Preliminary ultrasound imaging was obtained through the right neck. An optimal site was selected along the anterolateral aspect of the right neck and marked. The marked site was cleaned and draped in usual sterile manner. 1% lidocaine was injected at puncture site. Under sterile ultrasound guidance a single wall needle was advanced from the skin into the right jugular vein just above the clavicle. After obtaining venous return a thin guidewire was advanced through the needle and needle withdrawn. A 5 [place] Islander dilator sheath was advanced over the guidewire and the dilator was removed. The tract was then dilated with a 12 [place] Islander dilator. A 12 [place] Mahurkar catheter was advanced over the guidewire into the SVC. The guidewire was removed and both ports of the catheter were flushed with saline followed by heparin. The throat port was flushed as well with saline. The catheter was anchored to the skin with two 3-0 nylon sutures. No sedation was utilized. Patient tolerated procedure extremely well. All elements of maximal sterile barrier technique followed including use of cap, mask, sterile gown, sterile gloves, a sterile full body drape and hand hygiene. Also followed skin preparation with 2% chlorhexidine for cutaneous antisepsis, and sterile ultrasound preparation with sterile gel and probe cover when applicable. FINDINGS: On preliminary ultrasound imaging there is widely patent right jugular vein. Ultrasound and fluoroscopy-guided placement of a 12 [place] Islander 13 cm long temporary dialysis catheter. The catheter was anchored to the skin and is ready for use. IR/IR cvc insert central tunnel IMPRESSION: Successful ultrasound and fluoroscopy-guided placement of 12/13 cm long right temporal dialysis catheter placement. Fluoroscopy time 0.3 minutes. Dose area product: 72 cGy.
--- NOTE | ~2021-03-23 | IR_ITS ---
PROCEDURE: IR INSERTION OF TUNNEL CATHETER UNDER ULTRASOUND AND FLUOROSCOPY. CLINICAL INFORMATION: Elevated creatinine. Urosepsis. COMPARISON: None TECHNIQUE: Following explaining ultrasound fluoroscopy-guided placement of temporary dialysis catheter procedure, benefits and risk with patient's guardian, a telephone consent was obtained in presence of IR nurse Tg. Patient was placed supine on fluoroscopy table in IR. Preliminary ultrasound imaging was obtained through the right neck. An optimal site was selected along the anterolateral aspect of the right neck and marked. The marked site was cleaned and draped in usual sterile manner. 1% lidocaine was injected at puncture site. Under sterile ultrasound guidance a single wall needle was advanced from the skin into the right jugular vein just above the clavicle. After obtaining venous return a thin guidewire was advanced through the needle and needle withdrawn. A 5 Macedonian dilator sheath was advanced over the guidewire and the dilator was removed. The tract was then dilated with a 12 [place]onian dilator. A 12 [place] Mahurkar catheter was advanced over the guidewire into the SVC. The guidewire was removed and both ports of the catheter were flushed with saline followed by heparin. The throat port was flushed as well with saline. The catheter was anchored to the skin with two 3-0 nylon sutures. No sedation was utilized. Patient tolerated procedure extremely well. All elements of maximal sterile barrier technique followed including use of cap, mask, sterile gown, sterile gloves, a sterile full body drape and hand hygiene. Also followed skin preparation with 2% chlorhexidine for cutaneous antisepsis, and sterile ultrasound preparation with sterile gel and probe cover when applicable. FINDINGS: On preliminary ultrasound imaging there is widely patent right jugular vein. Ultrasound and fluoroscopy-guided placement of a 12 [place] 13 cm long temporary dialysis catheter. The catheter was anchored to the skin and is ready for use. IR/IR us guide venous access IMPRESSION: Successful ultrasound and fluoroscopy-guided placement of 12/13 cm long right temporal dialysis catheter placement. Fluoroscopy time 0.3 minutes. Dose area product: 72 cGy.
[2021-03-23 14:58] VITALS: BP 104/61; BP 114/70; PULSE 60; PULSE 63; RESP 18; TEMP 36.9; O2SAT 96; O2SAT 98; BMI 39.6
--- NOTE | 2021-03-23 15:03 | ECG_ITS ---
Test Reason : CHEST PAIN Blood Pressure : / mmHG Vent. Rate : 073 BPM Atrial Rate : 043 BPM P-R Int : 000 ms QRS Dur : 190 ms QT Int : 528 ms P-R-T Axes : 000 015 -20 degrees QTc Int : 581 ms Atrial fibrillation Right bundle branch block Inferior infarct (cited on or before 23-OCT-2020) Abnormal ECG When compared with ECG of 15-DEC-2020 10:37, T wave inversion now evident in Anterior leads QT has lengthened Referred By: Yina Lagos Electronically Signed By:YOSELYN LEE
--- NOTE | 2021-03-23 15:06 | ED.CHESTPAIN ---
HPI - Chest Pain General Chief Complaint: Chest Pain Stated Complaint: CP PER SNF Time Seen by Provider: 03/23/21 15:02 Source: EMS Mode of arrival: EMS Limitations: altered mental status History of Present Illness HPI narrative: Patient is brought to the emergency room by EMS from [facility]. The staff reports that the patient complained of shortness of breath. Patient is mostly Samoan speaking. Patient also told the EMS crew that he has been complaining of chest pain since this morning. Patient uses oxygen intermittently, p.r.n. shortness of breath. Patient is confused at baseline, interactive, today he seems lethargic. According to the staff, seems that patient get some water weight. Related Data Home Medications Medication Instructions Recorded Confirmed aripiprazole 10 mg tablet 1 tab PO DAILY 12/15/20 12/15/20 calcium carbonate 500 mg oral wafer 1,000 mg PO DAILY 12/15/20 12/15/20 dapagliflozin 5 mg tablet (Farxiga) 1 tab PO DAILY 12/15/20 12/15/20 gemfibrozil 600 mg tablet 1 tab PO BID 12/15/20 12/15/20 insulin lispro 100 unit/mL unit SUBCUT TIDAC 12/15/20 subcutaneous pen (Humalog KwikPen (U-100) Insulin) metoprolol tartrate 100 mg tablet 1 tab PO BID 12/15/20 12/15/20 oxybutynin chloride 5 mg tablet 10 mg PO BID 12/15/20 12/15/20 tamsulosin 0.4 mg capsule 1 cap PO DAILY 12/15/20 12/15/20 amlodipine 10 mg tablet 10 mg PO DAILY 03/11/21 Previous Rx's Medication Instructions Recorded amlodipine 5 mg tablet 10 mg PO DAILY #0 tab 12/19/20 furosemide 40 mg tablet 40 mg PO DAILY #0 tab 12/19/20 hydralazine 25 mg tablet 75 mg PO TID #0 tab 12/19/20 Allergies Allergy/AdvReac Type Severity Reaction Status Date / Time haloperidol [From HALDOL] Allergy Unknown UNKNOWN Verified 03/23/21 14:58 penicillin V Allergy Unknown Unknown Verified 03/23/21 14:58 Penicillins [PENICILLINS] Allergy Unknown UNKNOWN Verified 03/23/21 14:58 Review of Systems Review of Systems: Only says chest pain Yes Unobtainable due to mental condition [facility] Past Medical History Medical History Acute kidney failure Afib 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 BPH (benign prostatic hyperplasia) Cardiomegaly Chronic kidney disease HTN (hypertension) Myocardial infarction Old myocardial infarction Systolic heart failure Type 2 diabetes mellitus Unspecified convulsions Unspecified sequelae of cerebral infarction Wernickes encephalopathy Social History Social History Household Members: None Housing: Long-Term Housing Other:: [facility] Do you presently have visiting nurse or other home services: No Patient Tobacco Use Status: Tobacco use Unknown Advance Directives: No Advance Directives Information Provided: Yes service: No Current occupational status: disabled Physical Exam Vital Signs: Vital Signs: Last Vital Signs Temp 98.4 F 03/23/21 14:58 Pulse 63 03/23/21 14:58 Resp 18 03/23/21 14:58 BP 104/61 03/23/21 14:58 Pulse Ox 98 03/23/21 14:58 Oxygen Flow Rate 2 03/23/21 14:58 Body Mass Index 39.6 Const: Other: Appearance: Alert. Somnolent, easily arousable Eyes: Pupils equal, round and reactive to light. ENT: Pharynx normal. Neck: Normal inspection. Neck supple. No lymph nodes noted. No crepitus CVS: Normal heart rate and rhythm. S1, S2 Respiratory: Nasal cannula in place, no respiratory distress, no crackles Abdomen: Soft and nontender. No rigidity. No distention. Skin: Skin warm and dry. Normal skin color. Normal skin turgor. Extremities: Chronic lymphedema edema, bilateral lower extremity edema +2 No Lacerations. No Rash Neuro:No motor deficit. No sensory deficit. Moving all extermities. No slurred speech. Course Course Course Narrative: Patient's labs are pending. Patient was straight cathed, patient's urine looks purulent, is foul-smelling. Patient is being empirically treated with IV antibiotics. Patient's labs are pending. Blood pressure on the softer side above 100, no fever. Sepsis is not suspected at this time All of the patient's labs are pending. Sign out given to Dr. Dustin TIERNEY - Chest Pain Lab Data Result diagrams: 03/23/21 15:30 03/23/21 15:30 Labs: Lab Results 03/23/21 03/23/21 03/23/21 Range/Units 15:30 15:30 15:30 WBC 7.6 (4.8-10.8) X10*3/uL RBC 2.61 L (4.60-5.80) X10*6/uL Hgb 7.9 L (14.0-18.0) g/dl Hct 25.2 L (42-52) % MCV 96.6 (80-98) fL MCH 30.3 (27.0-33.0) pg MCHC 31.3 (31.0-36.0) g/dl RDW 20.2 H (11.0-16.0) % Plt Count 194 (160-400) X10*3/uL MPV 9.5 (9.4-12.4) fL Immature Gran % (Auto) 1.8 H (0.0-0.4) % Neut % (Auto) 78.5 H (45-73) % Lymph % (Auto) 8.8 L (20-40) % [place] % (Auto) 9.5 (2-11) % Eos % (Auto) 1.1 (0-4) % Baso % (Auto) 0.3 (0-2) % Lymph # (Auto) 0.7 L (1.2-4.9) X10*3/uL [place] # (Auto) 0.7 (0.1-1.2) X10*3/uL Eos # (Auto) 0.1 (0.0-0.4) X10*3/uL Baso # (Auto) 0.0 (0.0-0.2) X10*3/uL Abs Immat Gran (auto) 0.14 H (0.00-0.03) X10*3/uL Absolute Neuts (auto) 6.0 (2.0-8.3) X10*3/uL Absolute Nucleated RBC 0.000 (0.0-0.012) X10*3/uL Nucleated RBC % (auto) 0.0 (0.0-0.2) /100WBC PT (9.9-13.0) SEC INR (0.9-1.1) VBG pH (7.32-7.43) VBG pCO2 mmHg VBG pO2 mmHg VBG HCO3 (22-26) mmol/L VBG O2 Saturation % VBG Base Excess mmol/L BUN 110 H* D (9-16) mg/dL Creatinine 5.38 H* (0.5-1.4) mg/dL Estim Creat Clear Calc 16.2 Estimated GFR 11 Random Glucose 138 H D (60-115) mg/dL Lactic Acid 0.5 (0.5-2.0) mmol/L Total Bilirubin 0.6 (0.0-1.0) mg/dL Direct Bilirubin 0.4 (0.0-0.5) mg/dL AST 13 (5-37) U/L ALT 9 (0-40) U/L Alkaline Phosphatase 118 H (39-117) U/L Troponin I High Sens (<3.5-35.0) ng/L B-Natriuretic Peptide (<100) pg/mL Total Protein 7.0 (6.5-8.0) g/dL Urine Color Urine Appearance Urine pH (5.0-8.0) Ur Specific [place] (1.005-1.025) Urine Protein (NEG-TRACE) MG/DL Urine Glucose (UA) (NEG) MG/DL Urine Ketones (NEG) MG/DL Urine Blood (NEG) Urine Nitrite (NEG) Ur Leukocyte Esterase (NEG) Urine RBC (0) /HPF Urine WBC (0-4) /HPF Ur Squamous Epith Cells /LPF Urine Bacteria /LPF COVID-19 ([facility]) (Negative) COVID-19 Clin Com 03/23/21 03/23/21 03/23/21 Range/Units 15:30 15:30 15:30 WBC (4.8-10.8) X10*3/uL RBC (4.60-5.80) X10*6/uL Hgb (14.0-18.0) g/dl Hct (42-52) % MCV (80-98) fL MCH (27.0-33.0) pg MCHC (31.0-36.0) g/dl RDW (11.0-16.0) % Plt Count (160-400) X10*3/uL MPV (9.4-12.4) fL Immature Gran % (Auto) (0.0-0.4) % Neut % (Auto) (45-73) % Lymph % (Auto) (20-40) % [place] % (Auto) (2-11) % Eos % (Auto) (0-4) % Baso % (Auto) (0-2) % Lymph # (Auto) (1.2-4.9) X10*3/uL [place] # (Auto) (0.1-1.2) X10*3/uL Eos # (Auto) (0.0-0.4) X10*3/uL Baso # (Auto) (0.0-0.2) X10*3/uL Abs Immat Gran (auto) (0.00-0.03) X10*3/uL Absolute Neuts (auto) (2.0-8.3) X10*3/uL Absolute Nucleated RBC (0.0-0.012) X10*3/uL Nucleated RBC % (auto) (0.0-0.2) /100WBC PT 14.5 H (9.9-13.0) SEC INR 1.3 H (0.9-1.1) VBG pH (7.32-7.43) VBG pCO2 mmHg VBG pO2 mmHg VBG HCO3 (22-26) mmol/L VBG O2 Saturation % VBG Base Excess mmol/L BUN (9-16) mg/dL Creatinine (0.5-1.4) mg/dL Estim Creat Clear Calc Estimated GFR Random Glucose (60-115) mg/dL Lactic Acid (0.5-2.0) mmol/L Total Bilirubin (0.0-1.0) mg/dL Direct Bilirubin (0.0-0.5) mg/dL AST (5-37) U/L ALT (0-40) U/L Alkaline Phosphatase (39-117) U/L Troponin I High Sens 26.7 (<3.5-35.0) ng/L B-Natriuretic Peptide 506 H (<100) pg/mL Total Protein (6.5-8.0) g/dL Urine Color Urine Appearance Urine pH (5.0-8.0) Ur Specific [place] (1.005-1.025) Urine Protein (NEG-TRACE) MG/DL Urine Glucose (UA) (NEG) MG/DL Urine Ketones (NEG) MG/DL Urine Blood (NEG) Urine Nitrite (NEG) Ur Leukocyte Esterase (NEG) Urine RBC (0) /HPF Urine WBC (0-4) /HPF Ur Squamous Epith Cells /LPF Urine Bacteria /LPF COVID-19 ([facility]) Negative (Negative) COVID-19 Clin Com See Note 03/23/21 03/23/21 Range/Units 15:40 15:48 WBC (4.8-10.8) X10*3/uL RBC (4.60-5.80) X10*6/uL Hgb (14.0-18.0) g/dl Hct (42-52) % MCV (80-98) fL MCH (27.0-33.0) pg MCHC (31.0-36.0) g/dl RDW (11.0-16.0) % Plt Count (160-400) X10*3/uL MPV (9.4-12.4) fL Immature Gran % (Auto) (0.0-0.4) % Neut % (Auto) (45-73) % Lymph % (Auto) (20-40) % [place] % (Auto) (2-11) % Eos % (Auto) (0-4) % Baso % (Auto) (0-2) % Lymph # (Auto) (1.2-4.9) X10*3/uL [place] # (Auto) (0.1-1.2) X10*3/uL Eos # (Auto) (0.0-0.4) X10*3/uL Baso # (Auto) (0.0-0.2) X10*3/uL Abs Immat Gran (auto) (0.00-0.03) X10*3/uL Absolute Neuts (auto) (2.0-8.3) X10*3/uL Absolute Nucleated RBC (0.0-0.012) X10*3/uL Nucleated RBC % (auto) (0.0-0.2) /100WBC PT (9.9-13.0) SEC INR (0.9-1.1) VBG pH 7.17 L* (7.32-7.43) VBG pCO2 28 mmHg VBG pO2 151 mmHg VBG HCO3 10 L (22-26) mmol/L VBG O2 Saturation 97.0 % VBG Base Excess -16.2 mmol/L BUN (9-16) mg/dL Creatinine (0.5-1.4) mg/dL Estim Creat Clear Calc Estimated GFR Random Glucose (60-115) mg/dL Lactic Acid (0.5-2.0) mmol/L Total Bilirubin (0.0-1.0) mg/dL Direct Bilirubin (0.0-0.5) mg/dL AST (5-37) U/L ALT (0-40) U/L Alkaline Phosphatase (39-117) U/L Troponin I High Sens (<3.5-35.0) ng/L B-Natriuretic Peptide (<100) pg/mL Total Protein (6.5-8.0) g/dL Urine Color YELLOW Urine Appearance CLOUDY Urine pH 7.5 (5.0-8.0) Ur Specific [place] 1.020 (1.005-1.025) Urine Protein 3+ H (NEG-TRACE) MG/DL Urine Glucose (UA) NEG (NEG) MG/DL Urine Ketones NEG (NEG) MG/DL Urine Blood 3+ H (NEG) Urine Nitrite NEG (NEG) Ur Leukocyte Esterase 3+ H (NEG) Urine RBC 10-14 H (0) /HPF Urine WBC TNTC H (0-4) /HPF Ur Squamous Epith Cells NONE /LPF Urine Bacteria 3+ /LPF COVID-19 ([facility]) (Negative) COVID-19 Clin Com Discharge Plan Discharge Clinical Impression: Acute UTI Prescriptions: No [facility] metoprolol tartrate 100 mg tablet 1 tab PO BID RF: 0 gemfibrozil 600 mg tablet 1 tab PO BID RF: 0 insulin lispro [Humalog KwikPen Insulin] 100 unit/mL insulin pen subcut TIDAC RF: 0 aripiprazole 10 mg tablet 1 tab PO DAILY RF: 0 Farxiga 5 mg tablet 1 tab PO DAILY RF: 0 tamsulosin 0.4 mg capsule 1 cap PO DAILY RF: 0 oxybutynin chloride 5 mg tablet 10 mg PO BID RF: 0 calcium carbonate 500 mg Wafer 1,000 mg PO DAILY RF: 0 furosemide 40 mg Tablet 40 mg PO DAILY Qty: 0 RF: 0 hydralazine 25 mg Tablet 75 mg PO TID Qty: 0 RF: 0 amlodipine 5 mg Tablet 10 mg PO DAILY Qty: 0 RF: 0
[2021-03-23 15:41] LABS: MANUAL DIFF FLAG NO
[2021-03-23 15:48] LABS: INTERNATIONAL NORM RATIO 1.3 (0.9-1.1); Prothrombin Time 14.5 SEC (9.9-13.0)
[2021-03-23 15:54] LABS: Basophils Percent Auto 0.3 % (0-2); Eosinophils Absolute Auto 0.1 X10*3/uL (0.0-0.4); Eosinophils Percent Auto 1.1 % (0-4); Hematocrit 25.2 % (42-52); Hemoglobin 7.9 g/dl (14.0-18.0); Imm Gran Abs Auto 0.14 X10*3/uL (0.00-0.03); Imm Gran Pct Auto 1.8 % (0.0-0.4); Lymphocytes Absolute Auto 0.7 X10*3/uL (1.2-4.9); Lymphocytes Percent Auto 8.8 % (20-40); Mean Corpuscular HGB Conc 31.3 g/dl (31.0-36.0); Mean Corpuscular Hemoglobin 30.3 pg (27.0-33.0); Mean Corpuscular Volume 96.6 fL (80-98); Mean Platelet Volume 9.5 fL (9.4-12.4); Monocytes Absolute Auto 0.7 X10*3/uL (0.1-1.2); Monocytes Percent Auto 9.5 % (2-11); Neutrophils Percent Auto 78.5 % (45-73); Platelet Count 194 X10*3/uL (160-400); Red Blood Count 2.61 X10*6/uL (4.60-5.80); Red Cell Distribution Width 20.2 % (11.0-16.0); White Blood Count 7.6 X10*3/uL (4.8-10.8)
[2021-03-23 15:55] LABS: Lactic Acid 0.5 mmol/L (0.5-2.0)
[2021-03-23 15:56] LABS: Venous Blood Gas Refer to POC result
[2021-03-23 15:57] LABS: COVID-19 Test Negative (Negative)
[2021-03-23 15:57] LABS: Appearance Urine CLOUDY; Color Urine YELLOW; Glucose Urine UA NEG (NEG); Nitrite Urine NEG (NEG); PH 7.5 (5.0-8.0); Urine Blood 3+ (NEG); Urine Ketones NEG (NEG); Urine Protein 3+ MG/DL (NEG-TRACE)
[2021-03-23 15:58] LABS: Leukocyte Esterase Urine 3+ (NEG); UACC Culture Trigger YES
[2021-03-23 16:00] VITALS: BP 105/58; PULSE 70; RESP 22; TEMP 36.9; O2SAT 97
[2021-03-23 16:02] LABS: Alanine Aminotransferase 9 U/L (0-40)
[2021-03-23 16:03] LABS: VBG Base Excess -16.2 mmol/L; VBG HCO3 10 mmol/L (22-26); VBG pCO2 28 mmHg; VBG pH 7.17 (7.32-7.43); VBG pO2 151 mmHg
[2021-03-23 16:04] LABS: Bacteria Urine 3+ /LPF; WBC Urine TNTC /HPF (0-4)
[2021-03-23 16:05] LABS: Alkaline Phosphatase 118 U/L (39-117); Aspartate Amino Transferase 13 U/L (5-37); B Type Natriuretic Peptide 506 pg/mL (<100); Bilirubin Direct 0.4 mg/dL (0.0-0.5); Bilirubin Total 0.6 mg/dL (0.0-1.0); Glucose Random 138 mg/dL (60-115); Troponin-I High Sensitivity 26.7 ng/L (<3.5-35.0)
[2021-03-23 16:10] LABS: Blood Urea Nitrogen 110 mg/dL (9-16); Creatinine Clr Calc Pharmacy 16.2; Estimated Glomerular Filt Rate 11
--- NOTE | 2021-03-23 16:16 | PC.NURSE ---
iv inserted, labs drawn, covid swab performed, ekg performed, straight cath for urine,vitals currently stable, will continue to monitor.
[2021-03-23 16:17] LABS: Albumin Level 3.1 g/dL (3.5-5.0); Anion Gap 22 (12-20); Calcium 7.4 mg/dL (8.4-10.2); Carbon Dioxide 11 mmol/L (22-29); Chloride 108 mmol/L (96-108); Potassium 5.7 mmol/L (3.3-5.1); Sodium 135 mmol/L (135-145)
--- NOTE | 2021-03-23 16:24 | PC.NURSE ---
PATIENTS O2 SAT DROPPED TO 86% ON ROOM AIR, APPLIED 2L O2 AND HE RECOVERED TO 97%
[2021-03-23] MEDS: levoFLOXacin/D5W 500 MG/100 ML PIGGYBACK 100 MG IV (16:27)
[2021-03-23 17:07] LABS: OBS Int Ctl Valid YES; OBS1 POSITIVE (NEGATIVE)
[2021-03-23] MEDS: Furosemide 40 MG/4 ML VIAL IVPUSH (18:26)
[2021-03-23] MEDS: Sodium Polystyrene Sulfon/Sorb 15 GM/60 ML ORAL.SUSP 30 GM PO (18:26)
[2021-03-23 19:55] VITALS: BP 101/49; PULSE 72; RESP 18; TEMP 37
[2021-03-23 20:11] VITALS: BP 106/66; PULSE 72; RESP 18; TEMP 36.9
[2021-03-23 22:02] VITALS: BP 114/61; PULSE 82; RESP 19; TEMP 36.9
[2021-03-23 22:17] VITALS: BP 114/61; PULSE 82; RESP 19; TEMP 36.9
--- NOTE | 2021-03-23 22:23 | PC.NURSE ---
PATIENT WAS INC OF LARGE AMOUNT OF LOOSE STOOL ,PATIENT WAS CLEAN UP BY THIS PCT AND PCT SUMMER
--- NOTE | 2021-03-23 23:20 | PM.IMHP ---
History of Present Illness Date of Service: 03/23/21 Chief Complaint: Edema, SOB Kuwaiti-speaking only therefore history is obtained with the help of the translation system located in the ED This is a 70-year-old male with past medical history of AFib, alcoholic cardiomyopathy, BPH, coronary artery disease, cardiomegaly, CKD, HTN, diabetes who is sent to the hospital from prison with reported complaint of of shortness of breath and edema. This was obtained from documentation sent with patient from prison. Patient has dementia, when I tried to obtain information from him using the interpretation system he reports that he came into the hospital because of a headache. Patient denies any shortness of breath, no cough, no chest pain, no shortness of breath, no diarrhea or constipation, no abdominal pain, no urinary symptoms and no lower extremity edema. He denies any other symptoms at this time On arrival to the ED patient hemodynamically stable and found to be hypoxic in the high 80s, patient placed on 4 L of nasal cannula satting 97% at this time Labs are significant for WBC count of 9.6, hemoglobin of 7.9 that dropped from 8.8 on 12/19. VBG was done which showed pH of 7.17, CO2 of 28, potassium 5.4, potassium 5.7, bicarb of 11, anion gap 22, BUN of 110, creatinine of 5.38, alk-phos of 118, BNP of 506, UA positive for leukocyte Estrace, WBC COVID-19 negative Pleural effusion with areas of airways thickening with mild pulmonary vascular congestion, Occult stool blood positive Patient received 1 unit of PRBC, and is going to be admitted for further management Review of system obtained from EMR Review of Systems Review of Systems: Yes all other systems are reviewed and are negative [facility] Medical History Acute kidney failure Afib Alcoholic cardiomyopathy Atherosclerotic heart disease of [place] coronary artery without angina pectoris BPH (benign prostatic hyperplasia) Cardiomegaly Chronic kidney disease HTN (hypertension) Myocardial infarction Old myocardial infarction Systolic heart failure Type 2 diabetes mellitus Unspecified convulsions Unspecified sequelae of cerebral infarction Wernickes encephalopathy Pertinent family history: Unable to obtain Social History Household Members: None Housing: Detention Housing Other:: [facility] Do you presently have visiting nurse or other home services: No Patient Tobacco Use Status: Tobacco use Unknown Use of substances other than those prescribed or required for medical reasons: Unknown Advance Directives: No Advance Directives Information Provided: Yes service: No Current occupational status: disabled Meds Allergies Allergy/AdvReac Type Severity Reaction Status Date / Time haloperidol [From HALDOL] Allergy Unknown UNKNOWN Verified 03/23/21 14:58 penicillin V Allergy Unknown Unknown Verified 03/23/21 14:58 Penicillins [PENICILLINS] Allergy Unknown UNKNOWN Verified 03/23/21 14:58 Home Medications Medication Instructions Recorded Confirmed Last Taken Type aripiprazole 10 mg tablet 1 tab PO DAILY 12/15/20 03/23/21 Unknown History dapagliflozin 5 mg tablet (Farxiga) 1 tab PO DAILY 12/15/20 03/23/21 Unknown History gemfibrozil 600 mg tablet 1 tab PO BID 12/15/20 03/23/21 Unknown History insulin lispro 100 unit/mL unit SUBCUT TIDAC 12/15/20 Unknown History subcutaneous pen (Humalog KwikPen (U-100) Insulin) metoprolol tartrate 100 mg tablet 1 tab PO BID 12/15/20 03/23/21 Unknown History oxybutynin chloride 5 mg tablet 10 mg PO BID 12/15/20 03/23/21 Unknown History tamsulosin 0.4 mg capsule 1 cap PO DAILY 12/15/20 03/23/21 Unknown History amlodipine 10 mg tablet 10 mg PO DAILY 03/11/21 03/23/21 Unknown History ascorbic acid (vitamin C) 250 mg 250 mg PO BID 03/23/21 03/23/21 Unknown History tablet (Vitamin C) doxycycline hyclate 100 mg capsule 1 cap PO BID 03/23/21 03/23/21 Unknown History ferrous sulfate 325 mg (65 mg 325 mg PO BID 03/23/21 03/23/21 Unknown History iron) tablet Physical Exam Vital Signs and Narrative: Vital Signs: Last Vital Signs Temp 98.5 F 03/23/21 22:17 Pulse 82 03/23/21 22:17 Resp 19 03/23/21 22:17 BP 114/61 03/23/21 22:17 Pulse Ox 97 03/23/21 16:00 Oxygen Flow Rate 2 03/23/21 14:58 Body Mass Index 39.6 Const: Other: Patient knows he is in a hospital but does not know which hospital General: cooperative and no acute distress Eyes: General: appearance normal, both eyes and all related structures Resp: Effort & Inspection: normal respiratory effort Auscultation: clear to auscultation bilaterally Cardio: Rate: regular rate Rhythm: regular rhythm GI: Palpation (GI): Soft to palpation Auscultation: normal bowel sounds Skin: General skin exam: no rashes or lesions noted Neuro: Cognition (Neuro): normal cognition Extrem: Other: 2+ lower extremity edema bilaterally General: Yes normal to inspection Results Labs CBC and Chem 7: 03/24/21 05:21 03/24/21 05:21 Labs: Laboratory Results - last 24 hr 03/23/21 03/23/21 03/23/21 15:30 15:30 15:30 MCV 96.6 MCH 30.3 MCHC 31.3 RDW 20.2 H Plt Count 194 MPV 9.5 Immature Gran % (Auto) 1.8 H Neut % (Auto) 78.5 H Lymph % (Auto) 8.8 L [place] % (Auto) 9.5 Eos % (Auto) 1.1 Baso % (Auto) 0.3 Lymph # (Auto) 0.7 L [place] # (Auto) 0.7 Eos # (Auto) 0.1 Baso # (Auto) 0.0 Abs Immat Gran (auto) 0.14 H Absolute Neuts (auto) 6.0 Absolute Nucleated RBC 0.000 Nucleated RBC % (auto) 0.0 PT INR VBG pH VBG pCO2 VBG pO2 VBG HCO3 VBG O2 Saturation VBG Base Excess Anion Gap 22 H Estim Creat Clear Calc 16.2 Estimated GFR 11 Random Glucose 138 H D Lactic Acid 0.5 Calcium 7.4 L D Total Bilirubin 0.6 Direct Bilirubin 0.4 AST 13 ALT 9 Alkaline Phosphatase 118 H Troponin I High Sens B-Natriuretic Peptide Total Protein 7.0 Albumin 3.1 L Urine Color Urine Appearance Urine pH Ur Specific [place] Urine Protein Urine Glucose (UA) Urine Ketones Urine Blood Urine Nitrite Ur Leukocyte Esterase Urine RBC Urine WBC Ur Squamous Epith Cells Urine Bacteria Stool Occult Blood COVID-19 ([facility]ARRA) COVID-19 Clin Com Blood Type Antibody Screen Crossmatch 03/23/21 03/23/21 03/23/21 15:30 15:30 15:30 MCV MCH MCHC RDW Plt Count MPV Immature Gran % (Auto) Neut % (Auto) Lymph % (Auto) [place] % (Auto) Eos % (Auto) Baso % (Auto) Lymph # (Auto) [place] # (Auto) Eos # (Auto) Baso # (Auto) Abs Immat Gran (auto) Absolute Neuts (auto) Absolute Nucleated RBC Nucleated RBC % (auto) PT 14.5 H INR 1.3 H VBG pH VBG pCO2 VBG pO2 VBG HCO3 VBG O2 Saturation VBG Base Excess Anion Gap Estim Creat Clear Calc Estimated GFR Random Glucose Lactic Acid Calcium Total Bilirubin Direct Bilirubin AST ALT Alkaline Phosphatase Troponin I High Sens 26.7 B-Natriuretic Peptide 506 H Total Protein Albumin Urine Color Urine Appearance Urine pH Ur Specific [place] Urine Protein Urine Glucose (UA) Urine Ketones Urine Blood Urine Nitrite Ur Leukocyte Esterase Urine RBC Urine WBC Ur Squamous Epith Cells Urine Bacteria Stool Occult Blood COVID-19 ([facility]) Negative COVID-19 Clin Com See Note Blood Type Antibody Screen Crossmatch 03/23/21 03/23/21 03/23/21 15:40 15:48 16:56 MCV MCH MCHC RDW Plt Count MPV Immature Gran % (Auto) Neut % (Auto) Lymph % (Auto) [place] % (Auto) Eos % (Auto) Baso % (Auto) Lymph # (Auto) [place] # (Auto) Eos # (Auto) Baso # (Auto) Abs Immat Gran (auto) Absolute Neuts (auto) Absolute Nucleated RBC Nucleated RBC % (auto) PT INR VBG pH 7.17 L* VBG pCO2 28 VBG pO2 151 VBG HCO3 10 L VBG O2 Saturation 97.0 VBG Base Excess -16.2 Anion Gap Estim Creat Clear Calc Estimated GFR Random Glucose Lactic Acid Calcium Total Bilirubin Direct Bilirubin AST ALT Alkaline Phosphatase Troponin I High Sens B-Natriuretic Peptide Total Protein Albumin Urine Color YELLOW Urine Appearance CLOUDY Urine pH 7.5 Ur Specific [place] 1.020 Urine Protein 3+ H Urine Glucose (UA) NEG Urine Ketones NEG Urine Blood 3+ H Urine Nitrite NEG Ur Leukocyte Esterase 3+ H Urine RBC 10-14 H Urine WBC TNTC H Ur Squamous Epith Cells NONE Urine Bacteria 3+ Stool Occult Blood POSITIVE COVID-19 ([facility]) COVID-19 Clin Com Blood Type Antibody Screen Crossmatch 03/23/21 17:24 MCV MCH MCHC RDW Plt Count MPV Immature Gran % (Auto) Neut % (Auto) Lymph % (Auto) [place] % (Auto) Eos % (Auto) Baso % (Auto) Lymph # (Auto) [place] # (Auto) Eos # (Auto) Baso # (Auto) Abs Immat Gran (auto) Absolute Neuts (auto) Absolute Nucleated RBC Nucleated RBC % (auto) PT INR VBG pH VBG pCO2 VBG pO2 VBG HCO3 VBG O2 Saturation VBG Base Excess Anion Gap Estim Creat Clear Calc Estimated GFR Random Glucose Lactic Acid Calcium Total Bilirubin Direct Bilirubin AST ALT Alkaline Phosphatase Troponin I High Sens B-Natriuretic Peptide Total Protein Albumin Urine Color Urine Appearance Urine pH Ur Specific [place] Urine Protein Urine Glucose (UA) Urine Ketones Urine Blood Urine Nitrite Ur Leukocyte Esterase Urine RBC Urine WBC Ur Squamous Epith Cells Urine Bacteria Stool Occult Blood COVID-19 ([facility]) COVID-19 Clin Com Blood Type O Positive Antibody Screen NEGATIVE Crossmatch See Detail Imaging Radiologist's Impressions: Impressions Chest X-Ray 03/23/21 15:03 IMPRESSION: Small bilateral pleural effusions and atelectasis with areas of airways thickening with mild pulmonary vascular congestion. Cardiogenic edema could have this appearance as well as superimposed airways inflammatory process. Assessment and Plan (1) Acute respiratory failure with hypoxia: Status: Acute (2) CHF exacerbation: Status: Acute (3) Acute kidney injury superimposed on CKD: Status: Acute (4) Normocytic anemia: Status: Acute (5) Acute UTI: Status: Acute (6) High anion gap metabolic acidosis: Status: Acute 70-year-old male with past medical history as mentioned above who presents hospital with edema and shortness of breath per report from prison # acute hypoxic respiratory failure - most likely secondary CHF exacerbation - has elevated BNP, , chest x-ray suggestive of pulmonary congestion, has a lower extremity edema -patient on 40 mg of Lasix at home - will switch to IV Lasix 40 b.i.d. - low sodium diet, strict I&O, daily weight - cardiology consult - echocardiogram # CHF exacerbation - management with IV Lasix, low-sodium diet, strict I&O, daily weight - echocardiogram - Cardiology consult # normocytic anemia - has positive occult stool - will keep NPO - pantoprazole IV b.i.d. - GI consult # high anion gap metabolic acidosis - most likely secondary to uremia - has low bicarb - nephrology was consulted which recommended bicarb drip but given patient's CHF as well as hypoxia at this time will give him IV pushes of bicarb - follow VBG as well as bicarb level - nephrology on consult # MICHA on CKD - possibly secondary to CHF versus intrinsic - patient has elevated BUN, creatinine, significantly higher than his baseline - will start him on Lasix for St min of CHF - urine studies - follow BMP # UTI - will treat with IV antibiotics - follow cultures # diabetes - will hold oral antihyperglycemics - place on low-dose sliding scale insulin - continue home insulin - diabetic diet # hypertension - stable - continue home antihypertensives DVT prophylaxis: SCDs in the setting of anemia with positive stool occult Quality Stroke Does the patient have a stroke diagnosis?: No VTE Prior VTE?: No VTE Risk Level:: Medical - moderate - high VTE Device Contraindication: N/A - Device Ordered VTE Drug Contraindication: Treatment Not Indicated
[2021-03-24] VITALS (9 sets, daily range): BP systolic 115–145; BP diastolic 67–87; PULSE 72–97; RESP 20–24; TEMP 36–37.2; O2SAT 95–99
--- NOTE | 2021-03-24 00:11 | PC.NURSE ---
Pt repositioned, pt motions that he has left leg disomfort.
[2021-03-24] MEDS: Furosemide 40 MG/4 ML VIAL IVPUSH ×3 (01:21→17:03)
[2021-03-24] MEDS: Sodium Bicarbonate 8.4% 50 MEQ/50 ML VIAL IVPUSH (01:21)
[2021-03-24] MEDS: cefTRIAXone sodium 1 GM in 0.9 % Sodium Chloride 50 ML IV (02:18)
--- NOTE | 2021-03-24 04:50 | PC.NURSE ---
pt blood band found in the room on the supply cart. pt hh is low and pt needs to be re typed and screened per the lab and [facility] protocal.
[2021-03-24 05:26] LABS: Basophils Percent Auto 0.3 % (0-2); Eosinophils Absolute Auto 0.1 X10*3/uL (0.0-0.4); Eosinophils Percent Auto 0.9 % (0-4); Hematocrit 27.8 % (42-52); Hemoglobin 8.8 g/dl (14.0-18.0); Imm Gran Abs Auto 0.12 X10*3/uL (0.00-0.03); Imm Gran Pct Auto 1.3 % (0.0-0.4); Lymphocytes Absolute Auto 0.8 X10*3/uL (1.2-4.9); Lymphocytes Percent Auto 8.7 % (20-40); MANUAL DIFF FLAG NO; Mean Corpuscular HGB Conc 31.7 g/dl (31.0-36.0); Mean Corpuscular Hemoglobin 29.9 pg (27.0-33.0); Mean Corpuscular Volume 94.6 fL (80-98); Mean Platelet Volume 9.3 fL (9.4-12.4); Monocytes Absolute Auto 0.8 X10*3/uL (0.1-1.2); Monocytes Percent Auto 8.1 % (2-11); NRBC Pct Auto 0.2 /100WBC (0.0-0.2); Neutrophils Absolute Auto 7.7 X10*3/uL (2.0-8.3); Neutrophils Percent Auto 80.7 % (45-73); Platelet Count 208 X10*3/uL (160-400); Red Blood Count 2.94 X10*6/uL (4.60-5.80); Red Cell Distribution Width 20.7 % (11.0-16.0); White Blood Count 9.6 X10*3/uL (4.8-10.8)
[2021-03-24 06:05] LABS: Anion Gap 23 (12-20); Blood Urea Nitrogen 111 mg/dL (9-16); Calcium 7.3 mg/dL (8.4-10.2); Carbon Dioxide 11 mmol/L (22-29); Chloride 111 mmol/L (96-108); Estimated Glomerular Filt Rate 10; Glucose Random 75 mg/dL (60-115); Potassium 5.4 mmol/L (3.3-5.1); Sodium 140 mmol/L (135-145)
--- NOTE | 2021-03-24 07:52 | P.CNGI_ITS ---
History of Present Illness Data of Consult Service Date: 03/24/21 Requesting physician: Daniel Wang Primary Care Provider: Unknown Physician HPI Reason for consult: anemia, heme Positive stools 70 year old [place]-speaking male with AFib, alcoholic cardiomyopathy, BPH, coronary artery disease, cardiomegaly, CKD, HTN, diabetes?presented to [facility] ED on 03/23/2021 with chest pain and shortness of breath. HPI narrative: Patient is brought to the emergency room by EMS from [facility].? The staff reports that the patient complained of shortness of breath.? Patient is mostly [place] speaking.? Patient also told the EMS crew that he has been complaining of chest pain since this morning.? Patient uses oxygen intermittently, p.r.n. shortness of breath.? Patient is confused at baseline, interactive, today he seems lethargic.? According to the staff, seems that patient get some water weight . Hx obatined with the help of a Telephone [place] [employer] Clerk, Jannie # [id number] Pt is a poor historian due to language barrier, dementia and acute illness Patient denies symptoms of abdominal pain, recent change is bowel habits, change in appetite or weight. Patient has alcoholic cardiomyopathy with CHF and stage 4 CKD Denies being on chronic anticoagulation. Patient denies known family history of colon polyps, colon cancer or other GI malignancies. On arrival to the ED patient hemodynamically stable and found to be hypoxic in the high 80s, patient placed on 4 L of nasal cannula with improvement in O2 saturation to 97% Labs are significant for WBC count of 9.6, hemoglobin of 7.9 that dropped from 8.8 on 12/19.? VBG was done which showed pH of 7.17, CO2 of 28, potassium 5.4, potassium 5.7, bicarb of 11, anion gap 22, BUN of 110, creatinine of 5.38, alk-phos of 118, BNP of 506, UA positive for leukocyte Estrace, WBC COVID-19 negative Occult stool blood positive Patient was transfused 1 unit of PRBC, and admitted for further management PAST EGD/COLONOSCOPY: Pt denies having an EGD or colonoscopy in the past and no records found in [facility]: 03/23/21 CHEST XRAY SHOWED: Small bilateral pleural effusions and atelectasis with areas of airways thickening with mild pulmonary vascular congestion. Cardiogenic edema could have this appearance as well as superimposed airways inflammatory process. Review of Systems Constitutional: Constitutional: Denies fever(s), Denies headache(s) and Denies weight loss Eyes: Eyes: Denies eye discharge and Denies irritation ENT: Reports Normal hearing present, Denies dysphagia, Denies dizziness and Denies headache(s) Cardiovascular: Cardiovascular: Reports chest pain, Denies leg edema, Reports dyspnea and Reports dyspnea on exertion Respiratory: Respiratory: Denies cough, Reports dyspnea, Reports dyspnea on exertion and Denies wheezing Gastrointestinal: Gastrointestinal: Denies abdominal pain, Denies change in bowel habits, Denies dysphagia and Denies heartburn Genitourinary: Genitourinary: Denies dysuria Musculoskeletal: Musculoskeletal: Denies back pain and Denies arthralgias Integumentary/Breasts: Skin/Breast: Denies pruritus, Denies rash and Denies ja undice Neurologic: Reports Normal hearing present, Denies Abnormal speech present, Reports confusion, Denies dizziness, Denies headache(s), Reports memory loss and Denies seizure-like activity Psychiatric: Psychiatric: Denies anxiety, Reports confusion, Denies depression, Reports memory loss and Denies panic attacks Endocrine: Endocrine: Denies cold intolerance, Denies flushing and Denies heat intolerance Hematologic/Lymphatic: Hematologic/Lymphatic: Denies easy bleeding and Denies easy bruising Allergic/Immunologic: Allergic/Immunologic: Denies wheezing PMFSH Past Medical History Medical History (Updated 03/31/21 @ 12:08 by Osmani Wall MD) Acute kidney failure Afib Alcoholic cardiomyopathy Atherosclerotic heart disease of [place] coronary artery without angina pectoris BPH (benign prostatic hyperplasia) Cardiomegaly Chronic kidney disease HTN (hypertension) Myocardial infarction Old myocardial infarction Systolic heart failure Type 2 diabetes mellitus Unspecified convulsions Unspecified sequelae of cerebral infarction Wernickes encephalopathy Social History Social History Household Members: None Housing: [facility] Housing Other:: [facility] Do you presently have visiting nurse or other home services: No Patient Tobacco Use Status: Tobacco use Unknown service: No Current occupational status: disabled Meds Allergies Allergy/AdvReac Type Severity Reaction Status Date / Time haloperidol [From HALDOL] Allergy Unknown UNKNOWN Verified 03/23/21 14:58 penicillin V Allergy Unknown Unknown Verified 03/23/21 14:58 Penicillins [PENICILLINS] Allergy Unknown UNKNOWN Verified 03/23/21 14:58 Active Medications: Current Medications Generic Name Dose Route Start Last Admin Trade Name Freq PRN Reason Stop Dose Admin Acetaminophen 650 mg 03/24/21 00:12 Acetaminophen 325 Mg Tablet PO Q6H PRN Pain, Mild (Pain Scale 1-3) Aripiprazole 10 mg 03/24/21 09:00 Aripiprazole 10 Mg Tablet PO DAILY [facility] Ascorbic Acid 250 mg 03/24/21 09:00 Ascorbic Acid 250 Mg Tablet PO BID [facility] Dextrose 25 gm 03/24/21 07:02 Dextrose 50 % 25 Gm/50 Ml Vial IVPUSH Q15M PRN per Hypoglycemia Standing Ord. Protocol Docusate Sodium 100 mg 03/24/21 00:12 Docusate Sodium 100 Mg Capsule PO DAILY PRN Constipation Furosemide 40 mg 03/24/21 00:12 03/24/21 01:21 Furosemide 40 Mg/4 Ml Vial IVPUSH 40 mg BIDWM SHANE Administration Protocol Glucose 15 gm 03/24/21 07:02 Glucose Gel 15 Gm Gel..Gram. PO Q15M PRN per Hypoglycemia Standing Ord. Protocol Hydralazine HCl 75 mg 03/24/21 09:00 Hydralazine Hcl 25 Mg Tablet PO TID [facility] Protocol Ceftriaxone Sodium 1 gm/ 50 mls @ 100 mls/hr 03/24/21 00:12 03/24/21 04:37 Sodium Chloride IV Infused Q24H [facility] Infusion Insulin Human Lispro 0 unit 03/24/21 07:30 Insulin Lispro 100 Unit/Ml 3 Ml Vial SUBCUT QIDACHS [facility] Protocol Metoprolol Tartrate 100 mg 03/24/21 09:00 Metoprolol Tartrate 100 Mg Tablet PO BID [facility] Protocol Ondansetron HCl 4 mg 03/24/21 00:12 Ondansetron Hcl 4 Mg/2 Ml Vial IVPUSH Q8H PRN Nausea and Vomiting Oxybutynin Chloride 10 mg 03/24/21 09:00 Oxybutynin Chloride Er 5 Mg Tab.Er.24 PO DAILY [facility] Pantoprazole Sodium 40 mg 03/24/21 07:30 Pantoprazole Sodium 40 Mg/10 Ml Vial IVPUSH BID@0630,1630 [facility] Sodium Chloride 3 ml 03/24/21 00:12 03/24/21 01:20 0.9 % Sodium Chloride Flush 3 Ml Syringe IVFLUSH Not Given QSHIFT [facility] Tamsulosin HCl 0.4 mg 03/24/21 09:00 Tamsulosin Hcl 0.4 Mg Capsule PO DAILY [facility] Physical Exam Vital Signs: Vital Signs: Last Vital Signs Temp 98.5 F 03/23/21 22:17 Pulse 79 03/24/21 04:00 Resp 22 H 03/24/21 04:00 BP 129/83 03/24/21 04:00 Pulse Ox 97 03/24/21 04:00 Oxygen Flow Rate 2 03/23/21 14:58 Body Mass Index 39.6 Const: General: anxious, confusion, ill appearing, lethargic and tired appearing Nutritional Appearance: obese Orientation/consciousness: patient oriented x3, confusion and lethargic Limitations: language barrier HENMT: Head: Yes normal to inspection Ears: hearing grossly normal bilaterally Mouth: Normal oral and palatal mucosa present Eyes: Sclerae: sclerae normal Pupils: Equal, round and reactive pupils present Neck: Neck: Yes normal visual inspection Chest: Chest palpation & inspection: normal inspection of the chest Resp: Effort & Inspection: normal respiratory effort Auscultation: clear to auscultation bilaterally Cardio: Palpation: normal PMI Rate: regular rate Rhythm: regular rhythm Heart sounds: S1 normal heart sound present, S2 normal heart sound present and no murmurs GI: Palpation (GI): Soft to palpation, nontender and No hepatosplenomegaly present Auscultation: normal bowel sounds Rectal Exam - Male: Yes deferred Skin: General skin exam: no rashes or lesions noted Neuro: General: patient oriented x3, gait normal, moves all extremities and confusion Cranial nerves: Yes Equal, round and reactive pupils present and Yes Normal hearing present Speech: No Abnormal speech present Extrem: General: Yes pedal edema (2+ pitting edema bilaterally) Psych: Appearance: grossly normal Mental Status: mental status grossly normal Results Labs CBC & Chem 7: 03/31/21 05:33 03/31/21 05:33 Labs: Short CBC 03/23/21 03/24/21 Range/Units 15:30 05:21 WBC 7.6 9.6 (4.8-10.8) X10*3/uL Hgb 7.9 L 8.8 L (14.0-18.0) g/dl Hct 25.2 L 27.8 L (42-52) % Plt Count 194 208 (160-400) X10*3/uL BMP 03/23/21 03/24/21 15:30 05:21 Sodium 135 140 Potassium 5.7 H D 5.4 H Chloride 108 111 H Carbon Dioxide 11 L 11 L BUN 110 H* D 111 H* Creatinine 5.38 H* 5.44 H* Calcium 7.4 L D 7.3 L Liver Function 03/23/21 Range/Units 15:30 Total Bilirubin 0.6 (0.0-1.0) mg/dL Direct Bilirubin 0.4 (0.0-0.5) mg/dL AST 13 (5-37) U/L ALT 9 (0-40) U/L Alkaline Phosphatase 118 H (39-117) U/L Albumin 3.1 L (3.5-5.0) g/dL Urine 03/23/21 Range/Units 15:48 Urine Color YELLOW Urine Appearance CLOUDY Urine pH 7.5 (5.0-8.0) Ur Specific [place] 1.020 (1.005-1.025) Urine Protein 3+ H (NEG-TRACE) MG/DL Urine Glucose (UA) NEG (NEG) MG/DL Assessment and Plan (1) CHF exacerbation: Status: Acute (2) Normocytic anemia: Status: Acute (3) Acute kidney injury superimposed on CKD: Status: Acute Plan 70 year old [place]-speaking male with AFib, alcoholic cardiomyopathy, BPH, coronary artery disease, cardiomegaly, CKD, HTN, diabetes?admitted with chest pain and shortness of breath with acute on chronic anemia and worsening renal insufficiency. Stool occult blood was positive without over GI bleeding. BNP elevated at > 500. Cause of anemia is unclear - ? GI blood loss versus nutritional anemia or anemia of chronic disease. RECOMMENDATIONS: 1. Follow CBC daily 2. Check iron studies, ferritin, Vitamin B 12 and folate - added to am labs 3. Pt is not stable at present to undergo endoscopic evaluation. 4. Please re-consult once cardiac failure and renal function has improved to his baseline. Procedures Date of Service Date of Service: 03/24/21
[2021-03-24 09:17] LABS: Glucose, Whole Blood 68 mg/dL (60-115)
[2021-03-24 09:17] LABS: Glucose, Whole Blood 92 mg/dL (60-115)
--- NOTE | 2021-03-24 11:44 | PM.CNCAR ---
History of Present Illness History of Present Illness Date of Service: 03/24/21 Requesting physician: Kerry Ramos Chief complaint: CHF exacerbation, anemia, MICHA, MICHA, AGMA Narrative: 70-year-old gentleman with past history significant for atrial fibrillation, alcoholic cardiomyopathy, BPH, coronary artery disease, chronic kidney disease, hypertension and diabetes who is presenting for shortness of breath and edema. Patient has dementia and history is quite limited. He denied any symptoms at the time of interview. On chart review it was noticed that he has brought in for shortness of breath and edema. He has been found to be anemic. His kidney function is significantly abnormal. He previously had echocardiography in [facility] which showed moderately dilated right ventricle with moderate dysfunction. He also had a low normal left ventricular ejection fraction. In December 2020 he was admitted at [facility] with congestive heart failure and was diuresed. History is quite limited from him due to dementia and history of alcohol use in the past. He also has not been on anticoagulation for atrial fibrillation because of risk of falls and anemia. Review of Systems Review of Systems: Denying any chest discomfort shortness of breath. Yes Unobtainable due to mental status PMFSH Past Medical History Medical History Acute kidney failure Afib Alcoholic cardiomyopathy Atherosclerotic heart disease of [place] coronary artery without angina pectoris BPH (benign prostatic hyperplasia) Cardiomegaly Chronic kidney disease HTN (hypertension) Myocardial infarction Old myocardial infarction Systolic heart failure Type 2 diabetes mellitus Unspecified convulsions Unspecified sequelae of cerebral infarction Wernickes encephalopathy Social History Social History Household Members: None Housing: Retirement Housing Other:: [facility] Do you presently have visiting nurse or other home services: No Patient Tobacco Use Status: Tobacco use Unknown Use of substances other than those prescribed or required for medical reasons: Unknown Advance Directives: No Advance Directives Information Provided: Yes service: No Current occupational status: disabled Meds Allergies Allergy/AdvReac Type Severity Reaction Status Date / Time haloperidol [From HALDOL] Allergy Unknown UNKNOWN Verified 03/23/21 14:58 penicillin V Allergy Unknown Unknown Verified 03/23/21 14:58 Penicillins [PENICILLINS] Allergy Unknown UNKNOWN Verified 03/23/21 14:58 Active Medications: Current Medications Generic Name Dose Route Start Last Admin Trade Name Mi PRN Reason Stop Dose Admin Acetaminophen 650 mg 03/24/21 00:12 Acetaminophen 325 Mg Tablet PO Q6H PRN Pain, Mild (Pain Scale 1-3) Aripiprazole 10 mg 03/24/21 09:00 Aripiprazole 10 Mg Tablet PO DAILY [facility] Ascorbic Acid 250 mg 03/24/21 09:00 Ascorbic Acid 250 Mg Tablet PO BID [facility] Dextrose 25 gm 03/24/21 07:02 Dextrose 50 % 25 Gm/50 Ml Vial IVPUSH Q15M PRN per Hypoglycemia Standing Ord. Protocol Docusate Sodium 100 mg 03/24/21 00:12 Docusate Sodium 100 Mg Capsule PO DAILY PRN Constipation Furosemide 40 mg 03/24/21 00:12 03/24/21 01:21 Furosemide 40 Mg/4 Ml Vial IVPUSH 40 mg BIDWM [facility] Administration Protocol Glucose 15 gm 03/24/21 07:02 Glucose Gel 15 Gm Gel..Gram. PO Q15M PRN per Hypoglycemia Standing Ord. Protocol Hydralazine HCl 75 mg 03/24/21 09:00 Hydralazine Hcl 25 Mg Tablet PO TID [facility] Protocol Ceftriaxone Sodium 1 gm/ 50 mls @ 100 mls/hr 03/24/21 00:12 03/24/21 04:37 Sodium Chloride IV Infused Q24H [facility] Infusion Sodium Bicarbonate 150 meq/ 1,000 mls @ 100 mls/hr 03/24/21 09:00 Dextrose IV .Q10H [facility] Insulin Human Lispro 0 unit 03/24/21 07:30 Insulin Lispro 100 Unit/Ml 3 Ml Vial SUBCUT QIDACHS [facility] Protocol Metoprolol Tartrate 100 mg 03/24/21 09:00 Metoprolol Tartrate 100 Mg Tablet PO BID [facility] Protocol Ondansetron HCl 4 mg 03/24/21 00:12 Ondansetron Hcl 4 Mg/2 Ml Vial IVPUSH Q8H PRN Nausea and Vomiting Oxybutynin Chloride 10 mg 03/24/21 09:00 Oxybutynin Chloride Er 5 Mg Tab.Er.24 PO DAILY [facility] Pantoprazole Sodium 40 mg 03/24/21 07:30 Pantoprazole Sodium 40 Mg/10 Ml Vial IVPUSH BID@0630,1630 [facility] Sodium Chloride 3 ml 03/24/21 00:12 03/24/21 01:20 0.9 % Sodium Chloride Flush 3 Ml Syringe IVFLUSH Not Given QSHIFT [facility] Tamsulosin HCl 0.4 mg 03/24/21 09:00 Tamsulosin Hcl 0.4 Mg Capsule PO DAILY [facility] Home Medications Medication Instructions Recorded Confirmed Last Taken Type aripiprazole 10 mg tablet 1 tab PO DAILY 12/15/20 03/23/21 Unknown History dapagliflozin 5 mg tablet (Farxiga) 1 tab PO DAILY 12/15/20 03/23/21 Unknown History gemfibrozil 600 mg tablet 1 tab PO BID 12/15/20 03/23/21 Unknown History insulin lispro 100 unit/mL unit SUBCUT TIDAC 12/15/20 Unknown History subcutaneous pen (Humalog KwikPen (U-100) Insulin) metoprolol tartrate 100 mg tablet 1 tab PO BID 12/15/20 03/23/21 Unknown History oxybutynin chloride 5 mg tablet 10 mg PO BID 12/15/20 03/23/21 Unknown History tamsulosin 0.4 mg capsule 1 cap PO DAILY 12/15/20 03/23/21 Unknown History amlodipine 10 mg tablet 10 mg PO DAILY 03/11/21 03/23/21 Unknown History ascorbic acid (vitamin C) 250 mg 250 mg PO BID 03/23/21 03/23/21 Unknown History tablet (Vitamin C) doxycycline hyclate 100 mg capsule 1 cap PO BID 03/23/21 03/23/21 Unknown History ferrous sulfate 325 mg (65 mg 325 mg PO BID 03/23/21 03/23/21 Unknown History iron) tablet Physical Exam Vital Signs: Vital Signs: Last Vital Signs Temp 98.5 F 03/23/21 22:17 Pulse 79 03/24/21 04:00 Resp 22 H 03/24/21 04:00 BP 129/83 03/24/21 04:00 Pulse Ox 97 03/24/21 04:00 Oxygen Flow Rate 2 03/23/21 14:58 Body Mass Index 39.6 GENERAL APPEARANCE: Confused. NECK: no carotid bruit, no obvious jugular venous distention. SKIN: no suspicious lesions, warm and dry. HEART: no murmurs, irregular rate and rhythm. LUNGS: clear to auscultation bilaterally. ABDOMEN: soft, nontender. Results Labs and Meds Result diagrams: 03/24/21 05:21 03/24/21 05:21 Lab results: Laboratory Results - last 24 hr 03/23/21 03/23/21 03/23/21 15:30 15:30 15:30 WBC 7.6 RBC 2.61 L Hgb 7.9 L Hct 25.2 L MCV 96.6 MCH 30.3 MCHC 31.3 RDW 20.2 H Plt Count 194 MPV 9.5 Immature Gran % (Auto) 1.8 H Neut % (Auto) 78.5 H Lymph % (Auto) 8.8 L Dane % (Auto) 9.5 Eos % (Auto) 1.1 Baso % (Auto) 0.3 Lymph # (Auto) 0.7 L [place]ane # (Auto) 0.7 Eos # (Auto) 0.1 Baso # (Auto) 0.0 Abs Immat Gran (auto) 0.14 H Absolute Neuts (auto) 6.0 Absolute Nucleated RBC 0.000 Nucleated RBC % (auto) 0.0 PT INR VBG pH VBG pCO2 VBG pO2 VBG HCO3 VBG O2 Saturation VBG Base Excess Sodium 135 Potassium 5.7 H D Chloride 108 Carbon Dioxide 11 L Anion Gap 22 H BUN 110 H* D Creatinine 5.38 H* Estim Creat Clear Calc 16.2 Estimated GFR 11 POC Glucose Random Glucose 138 H D Lactic Acid 0.5 Calcium 7.4 L D Total Bilirubin 0.6 Direct Bilirubin 0.4 AST 13 ALT 9 Alkaline Phosphatase 118 H Troponin I High Sens B-Natriuretic Peptide Total Protein 7.0 Albumin 3.1 L Urine Color Urine Appearance Urine pH Ur Specific [place] Urine Protein Urine Glucose (UA) Urine Ketones Urine Blood Urine Nitrite Ur Leukocyte Esterase Urine RBC Urine WBC Ur Squamous Epith Cells Urine Bacteria Stool Occult Blood COVID-19 ([facility]) COVID-19 Clin Com Blood Type Antibody Screen Crossmatch 03/23/21 03/23/21 03/23/21 15:30 15:30 15:30 WBC RBC Hgb Hct MCV MCH MCHC RDW Plt Count MPV Immature Gran % (Auto) Neut % (Auto) Lymph % (Auto) Dane % (Auto) Eos % (Auto) Baso % (Auto) Lymph # (Auto) Dane # (Auto) Eos # (Auto) Baso # (Auto) Abs Immat Gran (auto) Absolute Neuts (auto) Absolute Nucleated RBC Nucleated RBC % (auto) PT 14.5 H INR 1.3 H VBG pH VBG pCO2 VBG pO2 VBG HCO3 VBG O2 Saturation VBG Base Excess Sodium Potassium Chloride Carbon Dioxide Anion Gap BUN Creatinine Estim Creat Clear Calc Estimated GFR POC Glucose Random Glucose Lactic Acid Calcium Total Bilirubin Direct Bilirubin AST ALT Alkaline Phosphatase Troponin I High Sens 26.7 B-Natriuretic Peptide 506 H Total Protein Albumin Urine Color Urine Appearance Urine pH Ur Specific [place] Urine Protein Urine Glucose (UA) Urine Ketones Urine Blood Urine Nitrite Ur Leukocyte Esterase Urine RBC Urine WBC Ur Squamous Epith Cells Urine Bacteria Stool Occult Blood COVID-19 ([facility]) Negative COVID-19 Clin Com See Note Blood Type Antibody Screen Crossmatch 03/23/21 03/23/21 03/23/21 15:40 15:48 16:56 WBC RBC Hgb Hct MCV MCH MCHC RDW Plt Count MPV Immature Gran % (Auto) Neut % (Auto) Lymph % (Auto) Dane % (Auto) Eos % (Auto) Baso % (Auto) Lymph # (Auto) Dane # (Auto) Eos # (Auto) Baso # (Auto) Abs Immat Gran (auto) Absolute Neuts (auto) Absolute Nucleated RBC Nucleated RBC % (auto) PT INR VBG pH 7.17 L* VBG pCO2 28 VBG pO2 151 VBG HCO3 10 L VBG O2 Saturation 97.0 VBG Base Excess -16.2 Sodium Potassium Chloride Carbon Dioxide Anion Gap BUN Creatinine Estim Creat Clear Calc Estimated GFR POC Glucose Random Glucose Lactic Acid Calcium Total Bilirubin Direct Bilirubin AST ALT Alkaline Phosphatase Troponin I High Sens B-Natriuretic Peptide Total Protein Albumin Urine Color YELLOW Urine Appearance CLOUDY Urine pH 7.5 Ur Specific [place] 1.020 Urine Protein 3+ H Urine Glucose (UA) NEG Urine Ketones NEG Urine Blood 3+ H Urine Nitrite NEG Ur Leukocyte Esterase 3+ H Urine RBC 10-14 H Urine WBC TNTC H Ur Squamous Epith Cells NONE Urine Bacteria 3+ Stool Occult Blood POSITIVE COVID-19 ([facility]) COVID-19 Clin Com Blood Type Antibody Screen Crossmatch 03/23/21 03/24/21 03/24/21 17:24 05:21 05:21 WBC 9.6 RBC 2.94 L Hgb 8.8 L Hct 27.8 L MCV 94.6 MCH 29.9 MCHC 31.7 RDW 20.7 H Plt Count 208 MPV 9.3 L Immature Gran % (Auto) 1.3 H Neut % (Auto) 80.7 H Lymph % (Auto) 8.7 L [place]ane % (Auto) 8.1 Eos % (Auto) 0.9 Baso % (Auto) 0.3 Lymph # (Auto) 0.8 L [place]ane # (Auto) 0.8 Eos # (Auto) 0.1 Baso # (Auto) 0.0 Abs Immat Gran (auto) 0.12 H Absolute Neuts (auto) 7.7 Absolute Nucleated RBC 0.020 H Nucleated RBC % (auto) 0.2 PT INR VBG pH VBG pCO2 VBG pO2 VBG HCO3 VBG O2 Saturation VBG Base Excess Sodium 140 Potassium 5.4 H Chloride 111 H Carbon Dioxide 11 L Anion Gap 23 H BUN 111 H* Creatinine 5.44 H* Estim Creat Clear Calc 16.0 Estimated GFR 10 POC Glucose Random Glucose 75 D Lactic Acid Calcium 7.3 L Total Bilirubin Direct Bilirubin AST ALT Alkaline Phosphatase Troponin I High Sens B-Natriuretic Peptide Total Protein Albumin Urine Color Urine Appearance Urine pH Ur Specific [place] Urine Protein Urine Glucose (UA) Urine Ketones Urine Blood Urine Nitrite Ur Leukocyte Esterase Urine RBC Urine WBC Ur Squamous Epith Cells Urine Bacteria Stool Occult Blood COVID-19 ([facility]) COVID-19 Clin Com Blood Type O Positive Antibody Screen NEGATIVE Crossmatch See Detail 03/24/21 03/24/21 03/24/21 05:21 07:50 09:09 WBC RBC Hgb Hct MCV MCH MCHC RDW Plt Count MPV Immature Gran % (Auto) Neut % (Auto) Lymph % (Auto) [place] % (Auto) Eos % (Auto) Baso % (Auto) Lymph # (Auto) [place] # (Auto) Eos # (Auto) Baso # (Auto) Abs Immat Gran (auto) Absolute Neuts (auto) Absolute Nucleated RBC Nucleated RBC % (auto) PT INR VBG pH VBG pCO2 VBG pO2 VBG HCO3 VBG O2 Saturation VBG Base Excess Sodium Potassium Chloride Carbon Dioxide Anion Gap BUN Creatinine Estim Creat Clear Calc Estimated GFR POC Glucose 68 92 Random Glucose Lactic Acid Calcium Total Bilirubin Direct Bilirubin AST ALT Alkaline Phosphatase Troponin I High Sens B-Natriuretic Peptide Total Protein Albumin Urine Color Urine Appearance Urine pH Ur Specific [place] Urine Protein Urine Glucose (UA) Urine Ketones Urine Blood Urine Nitrite Ur Leukocyte Esterase Urine RBC Urine WBC Ur Squamous Epith Cells Urine Bacteria Stool Occult Blood COVID-19 ([facility]) COVID-19 Clin Com Blood Type O Positive Antibody Screen NEGATIVE Crossmatch Imaging Radiologist's impression: Impressions Chest X-Ray 03/23/21 15:03 IMPRESSION: Small bilateral pleural effusions and atelectasis with areas of airways thickening with mild pulmonary vascular congestion. Cardiogenic edema could have this appearance as well as superimposed airways inflammatory process. Assessment and Plan (1) Acute kidney injury superimposed on CKD: Status: Acute (2) CHF exacerbation: Status: Acute 70 gentleman presenting for shortness of breath. He has dementia and is denying any symptoms right now. He has background history of chronic kidney disease and has significant acute kidney injury. Known to have low normal ejection fraction with RV dysfunction in the past. Chest x-ray is concerning for congestive heart failure. He is on 4 L nasal cannula. Blood pressure control is good. Agree with IV diuretics right now. Please consider Nephrology input. I think the beta-theresa should be decreased to 50 mg twice a day. With IV dysfunction sometimes negative inotropic agents can worsen forward flow and can lead to worsening renal function. We will follow along with you. Thank you for allowing me to participate in the care of your patient. Please feel free to contact me if you have any questions. Procedures Date of Service Date of Service: 03/24/21
--- NOTE | 2021-03-24 12:04 | HO.PM.IMPN ---
Subjective Subjective Date of Service: 03/24/21 Interval History: The patient was seen and evaluated this morning Laying in bed, feels tired with no energy and feeling very weak On oxygen supplement No reported other overnight events. Systemic review: No fever or chills but report significant weakness No chest pain, palpitation shortness of breath and dysnea on exertion No abdominal pain, nausea or vomiting No urinary symptoms No any rash or wounds Physical Exam Vital Signs: Vital Signs: Last Vital Signs Temp 98.5 F 03/23/21 22:17 Pulse 79 03/24/21 04:00 Resp 22 H 03/24/21 04:00 BP 129/83 03/24/21 04:00 Pulse Ox 97 03/24/21 04:00 Oxygen Flow Rate 2 03/23/21 14:58 Body Mass Index 39.6 Const: Other: Constitutional : Alert, oriented, looks ill and tired Neck : Normal inspection, Supple Cardiovascular : RRR, S1 S2, trace lower extremity edema Respiratory : fair bilateral air entry, basal fine crackles, wheezes or rhonchi on O2 supplement Gastrointestinal: soft, lax, Non tender Skin : Warm, Dry Neurological : Alert & oriented x3, No focal deficit Objective Data Active Medications Acetaminophen (Acetaminophen 325 Mg Tablet) 650 mg PO Q6H PRN PRN Reason: Pain, Mild (Pain Scale 1-3) Aripiprazole (Aripiprazole 10 Mg Tablet) 10 mg PO DAILY SHANE Ascorbic Acid (Ascorbic Acid 250 Mg Tablet) 250 mg PO BID SHANE Dextrose (Dextrose 50 % 25 Gm/50 Ml Vial) 25 gm IVPUSH Q15M PRN; Protocol PRN Reason: per Hypoglycemia Standing Ord. Docusate Sodium (Docusate Sodium 100 Mg Capsule) 100 mg PO DAILY PRN PRN Reason: Constipation Furosemide (Furosemide 40 Mg/4 Ml Vial) 40 mg IVPUSH BIDWM SHANE; Protocol Last Admin: 03/24/21 01:21 Dose: 40 mg Documented by: MCTA Glucose (Glucose Gel 15 Gm Gel..Gram.) 15 gm PO Q15M PRN; Protocol PRN Reason: per Hypoglycemia Standing Ord. Hydralazine HCl (Hydralazine Hcl 25 Mg Tablet) 75 mg PO TID [facility]; Protocol Ceftriaxone Sodium 1 gm/ (Sodium Chloride) 50 mls @ 100 mls/hr IV Q24H [facility] Last Infusion: 03/24/21 04:37 Dose: 0 mls/hr Documented by: ESTELA Sodium Bicarbonate 150 meq/ (Dextrose) 1,000 mls @ 100 mls/hr IV .Q10H [facility] Insulin Human Lispro (Insulin Lispro 100 Unit/Ml 3 Ml Vial) 0 unit SUBCUT QIDACHS [facility]; Protocol Metoprolol Tartrate (Metoprolol Tartrate 100 Mg Tablet) 100 mg PO BID [facility]; Protocol Ondansetron HCl (Ondansetron Hcl 4 Mg/2 Ml Vial) 4 mg IVPUSH Q8H PRN PRN Reason: Nausea and Vomiting Oxybutynin Chloride (Oxybutynin Chloride Er 5 Mg Tab.Er.24) 10 mg PO DAILY [facility] Pantoprazole Sodium (Pantoprazole Sodium 40 Mg/10 Ml Vial) 40 mg IVPUSH BID@0630,1630 [facility] Sodium Chloride (0.9 % Sodium Chloride Flush 3 Ml Syringe) 3 ml IVFLUSH QSHIFT [facility] Last Admin: 03/24/21 01:20 Dose: Not Given Documented by: ESTELA Non-Admin Reason: Med Not Available Tamsulosin HCl (Tamsulosin Hcl 0.4 Mg Capsule) 0.4 mg PO DAILY [facility] Labs CBC & Chem 7: 03/24/21 05:21 03/24/21 05:21 Labs: Laboratory Results - last 24 hr 03/23/21 03/23/21 03/23/21 15:30 15:30 15:30 MCV 96.6 MCH 30.3 MCHC 31.3 RDW 20.2 H Plt Count 194 MPV 9.5 Immature Gran % (Auto) 1.8 H Neut % (Auto) 78.5 H Lymph % (Auto) 8.8 L [place] % (Auto) 9.5 Eos % (Auto) 1.1 Baso % (Auto) 0.3 Lymph # (Auto) 0.7 L [place] # (Auto) 0.7 Eos # (Auto) 0.1 Baso # (Auto) 0.0 Abs Immat Gran (auto) 0.14 H Absolute Neuts (auto) 6.0 Absolute Nucleated RBC 0.000 Nucleated RBC % (auto) 0.0 PT INR VBG pH VBG pCO2 VBG pO2 VBG HCO3 VBG O2 Saturation VBG Base Excess Anion Gap 22 H Estim Creat Clear Calc 16.2 Estimated GFR 11 POC Glucose Random Glucose 138 H D Lactic Acid 0.5 Calcium 7.4 L D Total Bilirubin 0.6 Direct Bilirubin 0.4 AST 13 ALT 9 Alkaline Phosphatase 118 H Troponin I High Sens B-Natriuretic Peptide Total Protein 7.0 Albumin 3.1 L Urine Color Urine Appearance Urine pH Ur Specific [place] Urine Protein Urine Glucose (UA) Urine Ketones Urine Blood Urine Nitrite Ur Leukocyte Esterase Urine RBC Urine WBC Ur Squamous Epith Cells Urine Bacteria Stool Occult Blood COVID-19 (KIARRA) COVID-19 Clin Com Blood Type Antibody Screen Crossmatch 03/23/21 03/23/21 03/23/21 15:30 15:30 15:30 MCV MCH MCHC RDW Plt Count MPV Immature Gran % (Auto) Neut % (Auto) Lymph % (Auto) [place] % (Auto) Eos % (Auto) Baso % (Auto) Lymph # (Auto) [place] # (Auto) Eos # (Auto) Baso # (Auto) Abs Immat Gran (auto) Absolute Neuts (auto) Absolute Nucleated RBC Nucleated RBC % (auto) PT 14.5 H INR 1.3 H VBG pH VBG pCO2 VBG pO2 VBG HCO3 VBG O2 Saturation VBG Base Excess Anion Gap Estim Creat Clear Calc Estimated GFR POC Glucose Random Glucose Lactic Acid Calcium Total Bilirubin Direct Bilirubin AST ALT Alkaline Phosphatase Troponin I High Sens 26.7 B-Natriuretic Peptide 506 H Total Protein Albumin Urine Color Urine Appearance Urine pH Ur Specific [place] Urine Protein Urine Glucose (UA) Urine Ketones Urine Blood Urine Nitrite Ur Leukocyte Esterase Urine RBC Urine WBC Ur Squamous Epith Cells Urine Bacteria Stool Occult Blood COVID-19 ([facility]) Negative COVID-19 Clin Com See Note Blood Type Antibody Screen Crossmatch 03/23/21 03/23/21 03/23/21 15:40 15:48 16:56 MCV MCH MCHC RDW Plt Count MPV Immature Gran % (Auto) Neut % (Auto) Lymph % (Auto) [place] % (Auto) Eos % (Auto) Baso % (Auto) Lymph # (Auto) [place] # (Auto) Eos # (Auto) Baso # (Auto) Abs Immat Gran (auto) Absolute Neuts (auto) Absolute Nucleated RBC Nucleated RBC % (auto) PT INR VBG pH 7.17 L* VBG pCO2 28 VBG pO2 151 VBG HCO3 10 L VBG O2 Saturation 97.0 VBG Base Excess -16.2 Anion Gap Estim Creat Clear Calc Estimated GFR POC Glucose Random Glucose Lactic Acid Calcium Total Bilirubin Direct Bilirubin AST ALT Alkaline Phosphatase Troponin I High Sens B-Natriuretic Peptide Total Protein Albumin Urine Color YELLOW Urine Appearance CLOUDY Urine pH 7.5 Ur Specific [place] 1.020 Urine Protein 3+ H Urine Glucose (UA) NEG Urine Ketones NEG Urine Blood 3+ H Urine Nitrite NEG Ur Leukocyte Esterase 3+ H Urine RBC 10-14 H Urine WBC TNTC H Ur Squamous Epith Cells NONE Urine Bacteria 3+ Stool Occult Blood POSITIVE COVID-19 ([facility]) COVID-19 [facility] Com Blood Type Antibody Screen Crossmatch 03/23/21 03/24/21 03/24/21 17:24 05:21 05:21 MCV 94.6 MCH 29.9 MCHC 31.7 RDW 20.7 H Plt Count 208 MPV 9.3 L Immature Gran % (Auto) 1.3 H Neut % (Auto) 80.7 H Lymph % (Auto) 8.7 L [place] % (Auto) 8.1 Eos % (Auto) 0.9 Baso % (Auto) 0.3 Lymph # (Auto) 0.8 L [place] # (Auto) 0.8 Eos # (Auto) 0.1 Baso # (Auto) 0.0 Abs Immat Gran (auto) 0.12 H Absolute Neuts (auto) 7.7 Absolute Nucleated RBC 0.020 H Nucleated RBC % (auto) 0.2 PT INR VBG pH VBG pCO2 VBG pO2 VBG HCO3 VBG O2 Saturation VBG Base Excess Anion Gap 23 H Estim Creat Clear Calc 16.0 Estimated GFR 10 POC Glucose Random Glucose 75 D Lactic Acid Calcium 7.3 L Total Bilirubin Direct Bilirubin AST ALT Alkaline Phosphatase Troponin I High Sens B-Natriuretic Peptide Total Protein Albumin Urine Color Urine Appearance Urine pH Ur Specific [place] Urine Protein Urine Glucose (UA) Urine Ketones Urine Blood Urine Nitrite Ur Leukocyte Esterase Urine RBC Urine WBC Ur Squamous Epith Cells Urine Bacteria Stool Occult Blood COVID-19 ([facility]ARRA) COVID-19 [facility] Com Blood Type O Positive Antibody Screen NEGATIVE Crossmatch See Detail 03/24/21 03/24/21 03/24/21 05:21 07:50 09:09 MCV MCH MCHC RDW Plt Count MPV Immature Gran % (Auto) Neut % (Auto) Lymph % (Auto) [place] % (Auto) Eos % (Auto) Baso % (Auto) Lymph # (Auto) [place] # (Auto) Eos # (Auto) Baso # (Auto) Abs Immat Gran (auto) Absolute Neuts (auto) Absolute Nucleated RBC Nucleated RBC % (auto) PT INR VBG pH VBG pCO2 VBG pO2 VBG HCO3 VBG O2 Saturation VBG Base Excess Anion Gap Estim Creat Clear Calc Estimated GFR POC Glucose 68 92 Random Glucose Lactic Acid Calcium Total Bilirubin Direct Bilirubin AST ALT Alkaline Phosphatase Troponin I High Sens B-Natriuretic Peptide Total Protein Albumin Urine Color Urine Appearance Urine pH Ur Specific [place] Urine Protein Urine Glucose (UA) Urine Ketones Urine Blood Urine Nitrite Ur Leukocyte Esterase Urine RBC Urine WBC Ur Squamous Epith Cells Urine Bacteria Stool Occult Blood COVID-19 ([facility]) COVID-19 Clin Com Blood Type O Positive Antibody Screen NEGATIVE Crossmatch Microbiology Microbiology Results: Microbiology 03/23/21 16:01 Urine Culture - Preliminary Urine clean catch - Urine streeter top Gram negative maggi Assessment and Plan (1) High anion gap metabolic acidosis: Status: Acute (2) Normocytic anemia: Status: Acute (3) CHF exacerbation: Status: Acute (4) Acute kidney injury superimposed on CKD: Status: Acute Assessment and Plan: 70-year-old male with past medical history as mentioned above who presents hospital with edema and shortness of breath per report from residential # acute hypoxic respiratory failure # likely secondary CHF exacerbation elevated BNP, , chest x-ray suggestive of pulmonary congestion, has a lower extremity edema Decrease IV Lasix to 40 daily low sodium diet, strict I&O, daily weight cardiology consult, continue diuresis, decrease beta-theresa to 50 b.i.d. Pending echocardiogram # normocytic anemia Dropped from 8.8-7.9 over the last 3 months Received a unit of blood positive occult stool, no overt bleeding noticed Discontinue pantoprazole, start omeprazole GI consult # high anion gap metabolic acidosis Secondary to [place] I Start bicarb drip Add sodium bicarb p.o. Follow BMP Nephrology consult # MICHA on CKD Could be secondary to CHF, advancing disease Decrease metoprolol Continue Lasix urine studies follow BMP # UTI Urine culture growing gram-negative rods continue ceftriaxone # diabetes hold oral antihyperglycemics sliding scale insulin diabetic diet # hypertension continue home antihypertensives DVT prophylaxis SCDs in the setting of anemia with positive stool occult Quality Stroke Does the patient have a stroke diagnosis?: No VTE Prior VTE?: No VTE Risk Level:: Medical - moderate - high VTE Device Contraindication: N/A - Device Ordered VTE Drug Contraindication: Treatment Not Indicated
--- NOTE | 2021-03-24 12:09 | MHC.CM.PN ---
Addendum entered by Giovana Barnett 03/24/21 14:50: Patient received Pfizer vaccines 07/17 and 08/07. Original Note: Attempted to meet with patient in regards to dischage plan. Patient is currently sleeping and has a guardian. Spoke with patient's guardian, Eugene Porter Esq via telephone at [phone]. Patient is a LTC resident of [facility]. Anticipate pateint will return when medically stable via BLS. Copy of patient's guardianship verified to be on file. IMM explained and sent to [employer] via certified mail at [address] [place] [id number]. Continue to monitor for d/c needs.
[2021-03-24 12:11] LABS: Glucose, Whole Blood 107 mg/dL (60-115)
[2021-03-24] MEDS: hydrALAZINE HCl 25 MG TABLET 75 MG PO ×3 (12:39→21:14)
[2021-03-24] MEDS: ARIPiprazole 10 MG TABLET PO (12:40)
[2021-03-24] MEDS: Tamsulosin HCL 0.4 MG CAPSULE PO (12:40)
[2021-03-24] MEDS: Sodium Zirconium Cyclosilicate 10 GM POWD.PACK PO (12:41)
[2021-03-24] MEDS: 0.9 % Sodium Chloride Flush 3 ML SYRINGE IVFLUSH (12:43)
[2021-03-24] MEDS: Sodium Bicarbonate 8.4% 150 MEQ in Dextrose 5 % 850 ML 100 MEQ IV (13:06)
[2021-03-24] MEDS: Sodium Bicarbonate 650 MG TABLET 1300 MG PO ×2 (17:03→21:17)
[2021-03-24 17:04] LABS: Venous Blood Gas Refer to POC result
[2021-03-24 17:05] LABS: VBG Base Excess -14.3 mmol/L; VBG HCO3 11 mmol/L (22-26); VBG pCO2 24 mmHg; VBG pH 7.25 (7.32-7.43); VBG pO2 97 mmHg
[2021-03-24 17:05] LABS: Creatinine Urine 51.06 mg/dL
--- NOTE | 2021-03-24 17:42 | PC.NURSE ---
around 1220 this afternoon, pt pulled on patel, had blood tinged urine after incident, Provider Rachel aware, wanted bladder irrigations. Urine continues to be blood tinged. will do continuouse irrigation. patient has done well today, tolerating po, alert easily redirected, pt needs being met, currently waiting on bed assignment
[2021-03-24 18:40] LABS: Anion Gap 24 (12-20); Blood Urea Nitrogen 111 mg/dL (9-16); Calcium 7.3 mg/dL (8.4-10.2); Carbon Dioxide 11 mmol/L (22-29); Chloride 108 mmol/L (96-108); Creatinine Clr Calc Pharmacy 16.1; Estimated Glomerular Filt Rate 11; Glucose Random 172 mg/dL (60-115); Potassium 5.1 mmol/L (3.3-5.1); Sodium 138 mmol/L (135-145)
[2021-03-24 19:48] LABS: Glucose, Whole Blood 135 mg/dL (60-115)
[2021-03-24] MEDS: Metoprolol Tartrate 50 MG TABLET PO (21:15)
[2021-03-24 21:21] LABS: Glucose, Whole Blood 112 mg/dL (60-115)
--- NOTE | 2021-03-24 21:29 | PM.CNNEP ---
History of Present Illness Reason for Consult Consult date: 03/24/21 Reason for consult: MICHA Chief Complaint Chief complaint: CHF exacerbation, anemia, MICHA, MICHA, AGMA History of Present Illness Narrative: 70-year-old O[place]i speaking male with past medical history of AFib, alcoholic cardiomyopathy, BPH, coronary artery disease, cardiomegaly, CKD, HTN, diabetes who is sent to the hospital from [place] [facility] with reported complaint of of shortness of breath and edema.?? Patient denies any shortness of breath, no cough, no chest pain, no shortness of breath, no diarrhea or constipation, no abdominal pain, no urinary symptoms and no lower extremity edema.? He denies any other symptoms at this time. On arrival to the ED patient hemodynamically stable but found to be hypoxic in the high 80s and was placed on 4 L of nasal cannula saturating 97%. Labs were significant for hemoglobin of 7.9 , VBG showing pH of 7.17, CO2 of 28, potassium 5.4, potassium 5.7, bicarb of 11, anion gap 22, BUN of 110, creatinine of 5.38, alk-phos of 118, BNP of 506, WBC COVID-19 negative. Occult stool blood positive. He was admitted for further management. Nephrology was consulted to assist in his clinical care during his current hospital stay Review of Systems Review of Systems Yes all other systems are reviewed and are negative PMFSH Past Medical History Medical History Acute kidney failure Afib Alcoholic cardiomyopathy Atherosclerotic heart disease of [place] coronary artery without angina pectoris BPH (benign prostatic hyperplasia) Cardiomegaly Chronic kidney disease HTN (hypertension) Myocardial infarction Old myocardial infarction Systolic heart failure Type 2 diabetes mellitus Unspecified convulsions Unspecified sequelae of cerebral infarction Wernickes encephalopathy Social History Social History Household Members: None Housing: [facility] Housing Other:: [facility] Do you presently have visiting nurse or other home services: No Patient Tobacco Use Status: Tobacco use Unknown Use of substances other than those prescribed or required for medical reasons: Unknown Advance Directives: No Advance Directives Information Provided: Yes service: No Current occupational status: disabled Meds Allergies Allergy/AdvReac Type Severity Reaction Status Date / Time haloperidol [From HALDOL] Allergy Unknown UNKNOWN Verified 03/23/21 14:58 penicillin V Allergy Unknown Unknown Verified 03/23/21 14:58 Penicillins [PENICILLINS] Allergy Unknown UNKNOWN Verified 03/23/21 14:58 Active Medications: Current Medications Generic Name Dose Route Start Last Admin Trade Name Freq PRN Reason Stop Dose Admin Acetaminophen 650 mg 03/24/21 00:12 Acetaminophen 325 Mg Tablet PO Q6H PRN Pain, Mild (Pain Scale 1-3) Aripiprazole 10 mg 03/24/21 09:00 03/24/21 12:40 Aripiprazole 10 Mg Tablet PO 10 mg DAILY SHANE Administration Ascorbic Acid 250 mg 03/24/21 09:00 03/24/21 13:10 Ascorbic Acid 250 Mg Tablet PO Not Given BID SHANE Dextrose 25 gm 03/24/21 07:02 Dextrose 50 % 25 Gm/50 Ml Vial IVPUSH Q15M PRN per Hypoglycemia Standing Ord. Protocol Docusate Sodium 100 mg 03/24/21 00:12 Docusate Sodium 100 Mg Capsule PO DAILY PRN Constipation Furosemide 40 mg 03/25/21 09:00 Furosemide 40 Mg/4 Ml Vial IVPUSH DAILY [facility] Protocol Glucose 15 gm 03/24/21 07:02 Glucose Gel 15 Gm Gel..Gram. PO Q15M PRN per Hypoglycemia Standing Ord. Protocol Hydralazine HCl 75 mg 03/24/21 09:00 03/24/21 21:14 Hydralazine Hcl 25 Mg Tablet PO 75 mg TID SHANE Administration Protocol Ceftriaxone Sodium 1 gm/ 50 mls @ 100 mls/hr 03/24/21 00:12 03/24/21 04:37 Sodium Chloride IV Infused Q24H SHANE Infusion Sodium Bicarbonate 150 meq/ 1,000 mls @ 100 mls/hr 03/24/21 09:00 03/24/21 13:06 Dextrose IV 03/24/21 23:00 100 mls/hr .Q10H SHANE Administration Insulin Human Lispro 0 unit 03/24/21 07:30 03/24/21 21:12 Insulin Lispro 100 Unit/Ml 3 Ml Vial SUBCUT Not Given QIDACHS [facility] Protocol Metoprolol Tartrate 50 mg 03/24/21 21:00 03/24/21 21:15 Metoprolol Tartrate 50 Mg Tablet PO 50 mg BID SHANE Administration Protocol Omeprazole 40 mg 03/25/21 06:30 Omeprazole 40 Mg Capsule. PO DAILY@0630 [facility] Ondansetron HCl 4 mg 03/24/21 00:12 Ondansetron Hcl 4 Mg/2 Ml Vial IVPUSH Q8H PRN Nausea and Vomiting Oxybutynin Chloride 10 mg 03/24/21 09:00 03/24/21 12:40 Oxybutynin Chloride Er 5 Mg Tab.Er.24 PO 10 mg DAILY SHANE Administration Sodium Bicarbonate 1,300 mg 03/24/21 15:00 03/24/21 21:17 Sodium Bicarbonate 650 Mg Tablet PO 1,300 mg TID SHANE Administration Sodium Chloride 3 ml 03/24/21 00:12 03/24/21 19:20 0.9 % Sodium Chloride Flush 3 Ml Syringe IVFLUSH Not Given QSHIFT [facility] Tamsulosin HCl 0.4 mg 03/24/21 09:00 03/24/21 12:40 Tamsulosin Hcl 0.4 Mg Capsule PO 0.4 mg DAILY SHANE Administration Home Medications Medication Instructions Recorded Confirmed Last Taken Type aripiprazole 10 mg tablet 1 tab PO DAILY 12/15/20 03/23/21 Unknown History dapagliflozin 5 mg tablet (Farxiga) 1 tab PO DAILY 12/15/20 03/23/21 Unknown History gemfibrozil 600 mg tablet 1 tab PO BID 12/15/20 03/23/21 Unknown History insulin lispro 100 unit/mL unit SUBCUT TIDAC 12/15/20 Unknown History subcutaneous pen (Humalog KwikPen (U-100) Insulin) metoprolol tartrate 100 mg tablet 1 tab PO BID 12/15/20 03/23/21 Unknown History oxybutynin chloride 5 mg tablet 10 mg PO BID 12/15/20 03/23/21 Unknown History tamsulosin 0.4 mg capsule 1 cap PO DAILY 12/15/20 03/23/21 Unknown History amlodipine 10 mg tablet 10 mg PO DAILY 03/11/21 03/23/21 Unknown History ascorbic acid (vitamin C) 250 mg 250 mg PO BID 03/23/21 03/23/21 Unknown History tablet (Vitamin C) doxycycline hyclate 100 mg capsule 1 cap PO BID 03/23/21 03/23/21 Unknown History ferrous sulfate 325 mg (65 mg 325 mg PO BID 03/23/21 03/23/21 Unknown History iron) tablet Physical Exam Vital Signs: Last Vital Signs Temp 98.5 F 03/23/21 22:17 Pulse 97 03/24/21 21:23 Resp 24 H 03/24/21 21:23 BP 124/75 03/24/21 21:23 Pulse Ox 99 03/24/21 21:23 Oxygen Flow Rate 2 03/23/21 14:58 Body Mass Index 39.6 Const General: no acute distress Eyes EOM: EOMs intact bilaterally Neck Neck: Yes supple Resp Auscultation: diminished lung sounds Cardio Rate: regular rate GI Palpation (GI): Soft to palpation Neuro General: moves all extremities Results Lab Results Result Diagrams: 03/24/21 05:21 03/24/21 16:57 Lab results: Chemistry 03/23/21 03/24/21 03/24/21 15:30 05:21 16:57 Sodium 135 140 138 Potassium 5.7 H D 5.4 H 5.1 Carbon Dioxide 11 L 11 L 11 L BUN 110 H* D 111 H* 111 H* Creatinine 5.38 H* 5.44 H* 5.40 H* Calcium 7.4 L D 7.3 L 7.3 L Hematology 03/23/21 03/24/21 15:30 05:21 WBC 7.6 9.6 Hgb 7.9 L 8.8 L Plt Count 194 208 Urinalysis 03/23/21 15:48 Urine Color YELLOW Urine Appearance CLOUDY Urine pH 7.5 Ur Specific [place] 1.020 Urine Protein 3+ H Urine Glucose (UA) NEG Urine Ketones NEG Urine Blood 3+ H Urine Nitrite NEG Ur Leukocyte Esterase 3+ H Urine RBC 10-14 H Urine WBC TNTC H Ur Squamous Epith Cells NONE Urine Studies 03/24/21 16:48 Urine Creatinine 51.06 Assessment and Plan (1) Acute kidney injury superimposed on CKD: Status: Acute Acute Kidney Injury likely due to tubular injury Urine output good ruling out obstructive uropathy Needs to do a renal USS for completion of work Broad differential- GN vs AIN vs ATN Work up ordered; NaHCO3 for acidosis No indication for renal replacement now Labs AM. Shall closely follow up Procedures Date of Service Date of Service: 03/24/21
[2021-03-24 22:36] LABS: Glucose, Whole Blood 93 mg/dL (60-115)
[2021-03-25] VITALS (8 sets, daily range): BP systolic 117–145; BP diastolic 68–78; PULSE 74–84; RESP 18–22; TEMP 34.4–36.6; O2SAT 92–96
[2021-03-25] MEDS: cefTRIAXone sodium 1 GM in 0.9 % Sodium Chloride 50 ML IV (01:20)
[2021-03-25] MEDS: 0.9 % Sodium Chloride Flush 3 ML SYRINGE IVFLUSH ×4 (01:22→22:19)
[2021-03-25] MEDS: Sodium Bicarbonate 8.4% 150 MEQ in Dextrose 5 % 850 ML 100 MEQ IV (01:54)
[2021-03-25 07:13] LABS: Hematocrit 27.4 % (42-52); Hemoglobin 8.4 g/dl (14.0-18.0); Mean Corpuscular HGB Conc 30.7 g/dl (31.0-36.0); Mean Corpuscular Hemoglobin 28.8 pg (27.0-33.0); Mean Corpuscular Volume 93.8 fL (80-98); Mean Platelet Volume 9.8 fL (9.4-12.4); NRBC Pct Auto 0.3 /100WBC (0.0-0.2); Platelet Count 198 X10*3/uL (160-400); Red Blood Count 2.92 X10*6/uL (4.60-5.80); Red Cell Distribution Width 20.8 % (11.0-16.0); White Blood Count 10.2 X10*3/uL (4.8-10.8)
[2021-03-25 07:19] LABS: Glucose, Whole Blood 69 mg/dL (60-115)
[2021-03-25 07:56] LABS: Anion Gap 21 (12-20); Blood Urea Nitrogen 114 mg/dL (9-16); Calcium 7.3 mg/dL (8.4-10.2); Carbon Dioxide 16 mmol/L (22-29); Chloride 108 mmol/L (96-108); Creatinine Clr Calc Pharmacy 15.7; Estimated Glomerular Filt Rate 10; Glucose Random 67 mg/dL (60-115); Sodium 140 mmol/L (135-145)
[2021-03-25 08:08] LABS: Vitamin D 25-OH Total 12.8 ng/mL (>30)
[2021-03-25 08:22] LABS: Folate 4.6 ng/mL (> or = 4.0); Vitamin B12 520 pg/mL (200-900)
[2021-03-25] MEDS: Furosemide 40 MG/4 ML VIAL IVPUSH (08:42)
[2021-03-25] MEDS: Ascorbic Acid 250 MG TABLET PO (08:43)
[2021-03-25] MEDS: Metoprolol Tartrate 50 MG TABLET PO (08:43)
[2021-03-25] MEDS: hydrALAZINE HCl 25 MG TABLET 75 MG PO ×2 (08:43→17:54)
[2021-03-25] MEDS: ARIPiprazole 10 MG TABLET PO (08:43)
[2021-03-25] MEDS: Tamsulosin HCL 0.4 MG CAPSULE PO (08:43)
[2021-03-25] MEDS: Sodium Bicarbonate 650 MG TABLET 1300 MG PO ×2 (08:44→17:54)
[2021-03-25 08:47] LABS: Iron 30 mcg/dL (45-160); Percent Iron Saturation 11 % (15-50); Total Iron Binding Capacity 268 mcg/dL (228-428); Unsaturated Iron Binding 238 ug/dL
[2021-03-25 09:03] LABS: Phosphorus 11.9 mg/dL (2.7-4.5)
[2021-03-25 09:08] LABS: Ferritin 154 ng/mL (20-250)
--- NOTE | 2021-03-25 10:56 | P.CDIC_ITS ---
CDI Concurrent Query Documentation Clarification: PHYSICIAN'S DOCUMENTATION REQUEST Date of Query: 03/25/21 1050 Patient Name: Romero Slaughter Admit Date: 03/23/21 Dear Doctor, A review of the medical record indicates additional documentation may be needed. Please review below and update the documentation accordingly. Clinical Indicators: Risk Factors/Clinical Indicators/Treatments PMH: Wernickes encephalopathy, pt confused, doesn't know what hospital he is at, unable to review systems due to confusion, H/O of Dementia. Electrolyte imbalance. Gastro consult 03/24 noted patient is confused. Based on the above, could you clarify in the Progress Notes which, if any of the following, is the most likely etiology of the confusion/altered mental status? * Encephalopathy - indicate type such as metabolic, toxic, Wernickes or other * Dementia - indicate type of dementia, such as Alzheimer's, senile, vascular, Lewy body, etc. * * Baseline dementia - indicate type, such as Alzheimer's, senile, vascular, Lewy body, etc., * Acute or subacute confusional state due to (specify known or suspected etiology) * Other etiology (please specify) * Unable to determine Use of terms such as suspected, likely, concern for, or probable (associated with a specific diagnosis that is being evaluated, monitored, or treated as if it exists) are acceptable and can be coded in the inpatient setting, when documented at the time of discharge. Thank you, Anuja Prado [facility], CDIS Extension: [phone] Please use your independent medical judgment in providing your response. THIS QUERY IS PART OF THE PERMANENT MEDICAL RECORD Provider Response: Other Other Diagnosis: Metabolic encephalopathy, Multifactorial
[2021-03-25 11:23] LABS: Glucose, Whole Blood 112 mg/dL (60-115)
--- NOTE | 2021-03-25 11:26 | PM.PNCARD ---
Subjective Subjective Date of Service: 03/25/21 <MARK Thomas - Last Filed: 03/25/21 11:44> 03/25/21 <Thomas Mchugh MD - Last Filed: 03/25/21 19:15> Principal diagnosis: sob, anemia, hematuria, ARF on CKD, CHF <MARK Thomas - Last Filed: 03/25/21 11:44> Interval history: Cardiology follow up for CHF. Seen at 0850. Today he is observed awake, resting in med, moaning with expiration. He denies having SOB or any chest pains. Wearing O2 with nsala cannula, sat 96% on 4 liters. Has reported hx of dementia, unclear accuracy of his verbal responses. Observed moving extremeties, no gross edema. <MARK Thomas - Last Filed: 03/25/21 11:44> Review of Systems Review of Systems as above <MARK Thomas - Last Filed: 03/25/21 11:44> Yes Unobtainable due to mental condition (limited) <MARK Thomas - Last Filed: 03/25/21 11:44> Physical Exam Vital Signs: Last Vital Signs Temp 96.9 F 03/25/21 07:47 Pulse 84 03/25/21 07:47 Resp 21 H 03/25/21 07:47 BP 136/68 03/25/21 07:47 Pulse Ox 96 03/25/21 07:47 Oxygen Flow Rate 2 03/23/21 14:58 Body Mass Index 39.6 <MARK Thomas - Last Filed: 03/25/21 11:44> Const General: cooperative, no acute distress, alert and awake <MARK Thomas - Last Filed: 03/25/21 11:44> Neck Neck: Yes normal visual inspection and Yes no JVD <MARK Thomas - Last Filed: 03/25/21 11:44> Resp Other: Speaking in one word answers. Moans with expiration. appears mildly sob. Wearing O2 cannula. <MARK Thomas - Last Filed: 03/25/21 11:44> Auscultation: clear to auscultation bilaterally, no crackles, no rales, no rhonchi and no wheezes <WALI Thomas - Last Filed: 03/25/21 11:44> Cardio Palpation: normal PMI [facility] Last Filed: 03/25/21 11:44> Rate: regular rate [facility] Last Filed: 03/25/21 11:44> Rhythm: regular rhythm [facility] Last Filed: 03/25/21 11:44> Heart sounds: S1 normal heart sound present and S2 normal heart sound present <[facility] Last Filed: 03/25/21 11:44> GI Inspection: Yes normal to inspection <[facility] Last Filed: 03/25/21 11:44> Skin General skin exam: no rashes or lesions noted <[facility] Last Filed: 03/25/21 11:44> Extrem General: Yes normal to inspection and No edema <[facility] Last Filed: 03/25/21 11:44> Results Labs and Meds Result diagrams: : 03/25/21 06:45 03/25/21 06:45 <Jazmin Pack NP - Last Filed: 03/25/21 11:44> Lab results: Laboratory Results - last 24 hr 03/24/21 03/24/21 03/24/21 12:06 16:48 16:57 WBC RBC Hgb Hct MCV MCH MCHC RDW Plt Count MPV Absolute Nucleated RBC Nucleated RBC % (auto) VBG pH VBG pCO2 VBG pO2 VBG HCO3 VBG O2 Saturation VBG Base Excess Sodium 138 Potassium 5.1 Chloride 108 Carbon Dioxide 11 L Anion Gap 24 H BUN 111 H* Creatinine 5.40 H* Estim Creat Clear Calc 16.1 Estimated GFR 11 POC Glucose 107 Random Glucose 172 H D Calcium 7.3 L Phosphorus Iron TIBC % Saturation Unsat Iron Binding Ferritin Vitamin B12 25-OH Vitamin D Total Folate Ur Random Sodium 25.0 Urine Creatinine 51.06 03/24/21 03/24/21 03/24/21 17:01 19:41 21:10 WBC RBC Hgb Hct MCV MCH MCHC RDW Plt Count MPV Absolute Nucleated RBC Nucleated RBC % (auto) VBG pH 7.25 L VBG pCO2 24 VBG pO2 97 VBG HCO3 11 L VBG O2 Saturation 95.0 VBG Base Excess -14.3 Sodium Potassium Chloride Carbon Dioxide Anion Gap BUN Creatinine Estim Creat Clear Calc Estimated GFR POC Glucose 135 H 112 Random Glucose Calcium Phosphorus Iron TIBC % Saturation Unsat Iron Binding Ferritin Vitamin B12 25-OH Vitamin D Total Folate Ur Random Sodium Urine Creatinine 03/24/21 03/25/21 03/25/21 22:33 06:44 06:44 WBC RBC Hgb Hct MCV MCH MCHC RDW Plt Count MPV Absolute Nucleated RBC Nucleated RBC % (auto) VBG pH VBG pCO2 VBG pO2 VBG HCO3 VBG O2 Saturation VBG Base Excess Sodium Potassium Chloride Carbon Dioxide Anion Gap BUN Creatinine Estim Creat Clear Calc Estimated GFR POC Glucose 93 Random Glucose Calcium Phosphorus Iron 30 L TIBC 268 % Saturation 11 L Unsat Iron Binding 238 Ferritin 154 Vitamin B12 520 25-OH Vitamin D Total Folate 4.6 Ur Random Sodium Urine Creatinine 03/25/21 03/25/21 03/25/21 06:45 06:45 06:45 WBC 10.2 RBC 2.92 L Hgb 8.4 L Hct 27.4 L MCV 93.8 MCH 28.8 MCHC 30.7 L RDW 20.8 H Plt Count 198 MPV 9.8 Absolute Nucleated RBC 0.030 H Nucleated RBC % (auto) 0.3 H VBG pH VBG pCO2 VBG pO2 VBG HCO3 VBG O2 Saturation VBG Base Excess Sodium 140 Potassium 5.0 Chloride 108 Carbon Dioxide 16 L Anion Gap 21 H BUN 114 H* Creatinine 5.55 H* Estim Creat Clear Calc 15.7 Estimated GFR 10 POC Glucose Random Glucose 67 D Calcium 7.3 L Phosphorus 11.9 H Iron TIBC % Saturation Unsat Iron Binding Ferritin Vitamin B12 25-OH Vitamin D Total 12.8 Folate Ur Random Sodium Urine Creatinine 03/25/21 03/25/21 07:04 11:14 WBC RBC Hgb Hct MCV MCH MCHC RDW Plt Count MPV Absolute Nucleated RBC Nucleated RBC % (auto) VBG pH VBG pCO2 VBG pO2 VBG HCO3 VBG O2 Saturation VBG Base Excess Sodium Potassium Chloride Carbon Dioxide Anion Gap BUN Creatinine Estim Creat Clear Calc Estimated GFR POC Glucose 69 112 Random Glucose Calcium Phosphorus Iron TIBC % Saturation Unsat Iron Binding Ferritin Vitamin B12 25-OH Vitamin D Total Folate Ur Random Sodium Urine Creatinine <MARK Thomas - Last Filed: 03/25/21 11:44> Progress Note: A&P Assessment and plan (1) CHF exacerbation: Status: Acute <MARK Thomas - Last Filed: 03/25/21 11:44> Assessment and Plan: Admit with sob. CXR with findings consistent with CHF. BNP 506. Echo December 2020 with low normal EF. CHF on admit in December as well. Being diuresed gently with IV Lasix. Fluid balance not accurate due to CBI for hematuria. He reports that breathing unlabored this am but does appear mild sob, with moaning on expiration. O2 sat 96% on 4 liters. He does have AKR on CKD this admit with Cr in 5s which can contribute to his fluid overload. Currently on 07/13 his usual dose of BB due to CHF exacerbation. Can continue that dose for now. Continue with IV Lasix, unless Nephrology recommends otherwise. I+O as best able. Close monitoring of electrolyte and kidney function. O2 supplement to keep sat > 90%. Has anemia as well with Hgb down to 7.9 yesteday, 8.4 today. Heme + stool. Hematuria after patel. Anemia can add to his sob. Has been eval by GI and Nephrology. We will follow. <MARK Thomas - Last Filed: 03/25/21 11:44> (2) Acute kidney injury superimposed on CKD: Status: Acute <MARK Thomas - Last Filed: 03/25/21 11:44> (3) Normocytic anemia: Status: Acute <MARK Thomas - Last Filed: 03/25/21 11:44> (4) High anion gap metabolic acidosis: Status: Acute <MARK Thomas - Last Filed: 03/25/21 11:44> Fall Risk Details Current Medications: Current Medications Generic Name Dose Route Start Last Admin Trade Name Freq PRN Reason Stop Dose Admin Acetaminophen 650 mg 03/24/21 00:12 Acetaminophen 325 Mg Tablet PO Q6H PRN Pain, Mild (Pain Scale 1-3) Aripiprazole 10 mg 03/24/21 09:00 03/25/21 08:43 Aripiprazole 10 Mg Tablet PO 10 mg DAILY SHANE Administration Ascorbic Acid 250 mg 03/24/21 09:00 03/25/21 08:43 Ascorbic Acid 250 Mg Tablet PO 250 mg BID SHANE Administration Dextrose 25 gm 03/24/21 07:02 Dextrose 50 % 25 Gm/50 Ml Vial IVPUSH Q15M PRN per Hypoglycemia Standing Ord. Protocol Docusate Sodium 100 mg 03/24/21 00:12 Docusate Sodium 100 Mg Capsule PO DAILY PRN Constipation Furosemide 40 mg 03/25/21 09:00 03/25/21 08:42 Furosemide 40 Mg/4 Ml Vial IVPUSH 40 mg DAILY [facility] Administration Protocol Glucose 15 gm 03/24/21 07:02 Glucose Gel 15 Gm Gel..Gram. PO Q15M PRN per Hypoglycemia Standing Ord. Protocol Hydralazine HCl 75 mg 03/24/21 09:00 03/25/21 08:43 Hydralazine Hcl 25 Mg Tablet PO 75 mg TID [facility] Administration Protocol Ceftriaxone Sodium 1 gm/ 50 mls @ 100 mls/hr 03/24/21 00:12 03/25/21 01:58 Sodium Chloride IV Infused Q24H [facility] Infusion Insulin Human Lispro 0 unit 03/24/21 07:30 03/25/21 07:45 Insulin Lispro 100 Unit/Ml 3 Ml Vial SUBCUT Not Given QIDACHS [facility] Protocol Metoprolol Tartrate 50 mg 03/24/21 21:00 03/25/21 08:43 Metoprolol Tartrate 50 Mg Tablet PO 50 mg BID [facility] Administration Protocol Omeprazole 40 mg 03/25/21 06:30 03/25/21 06:29 Omeprazole 40 Mg Capsule.Dr PO Not Given DAILY@0630 [facility] Ondansetron HCl 4 mg 03/24/21 00:12 Ondansetron Hcl 4 Mg/2 Ml Vial IVPUSH Q8H PRN Nausea and Vomiting Oxybutynin Chloride 10 mg 03/24/21 09:00 03/25/21 08:44 Oxybutynin Chloride Er 5 Mg Tab.Er.24 PO 10 mg DAILY [facility] Administration Sodium Bicarbonate 1,300 mg 03/24/21 15:00 03/25/21 08:44 Sodium Bicarbonate 650 Mg Tablet PO 1,300 mg TID SHANE Administration Sodium Chloride 3 ml 03/24/21 00:12 03/25/21 08:42 0.9 % Sodium Chloride Flush 3 Ml Syringe IVFLUSH 3 ml QSHIFT [facility]ANE Administration Tamsulosin HCl 0.4 mg 03/24/21 09:00 03/25/21 08:43 Tamsulosin Hcl 0.4 Mg Capsule PO 0.4 mg DAILY [facility]ANE Administration <MARK Thomas - Last Filed: 03/25/21 11:44> Time Spent With Patient Time: Total time spent is greater than 50% in coordination of care (as documented) at patient's floor/unit and/or counseling patient: <MARK Thomas - Last Filed: 03/25/21 11:44> Time with patient: 15 - 24 minutes <MARK Thoams - Last Filed: 03/25/21 11:44> Progress Note: Quality Stroke Does the patient have a stroke diagnosis?: No <MARK Thomas - Last Filed: 03/25/21 11:44> Procedures Date of Service Date of Service: 03/25/21 <MARK Thomas - Last Filed: 03/25/21 11:44>
--- NOTE | 2021-03-25 11:36 | PC.NURSE ---
Skin assessment completed today. There are no open areas or pressure areas on skin or bony prominences. Ski is slightly dry.
--- NOTE | 2021-03-25 12:48 | PM.PNNEP ---
Subjective Subjective Date of Service: 03/25/21 Principal diagnosis: sob, anemia, hematuria, ARF on CKD, CHF Interval history: The patient was seen and evaluated this morning Laying in bed, feels tired with no energy and feeling very weak On oxygen supplement No reported other overnight events. Systemic review: No fever or chills but report significant weakness No chest pain, palpitation shortness of breath and dysnea on exertion No abdominal pain, nausea or vomiting No urinary symptoms No any rash or wounds Denies anorexia or nausea Physical Exam Vital Signs: Vital Signs: Last Vital Signs Temp 96.8 F 03/25/21 11:27 Pulse 77 03/25/21 11:27 Resp 20 03/25/21 11:27 BP 117/74 03/25/21 11:27 Pulse Ox 96 03/25/21 11:27 Oxygen Flow Rate 2 03/23/21 14:58 Body Mass Index 39.6 Const: Other: chronically ill appearing but no distress HENMT: Other: benign Neck: Neck: Yes normal visual inspection, Yes full ROM, Yes no lymphadenopathy, Yes supple and Yes no JVD Chest: Chest palpation & inspection: normal inspection of the chest Resp: Auscultation: clear to auscultation bilaterally Cardio: Rate: regular rate Rhythm: regular rhythm Heart sounds: S1 normal heart sound present and S2 normal heart sound present GI: Inspection: Yes distended and Yes other Palpation (GI): Soft to palpation and Firmness to palpation present (GI) Auscultation: normal bowel sounds Skin: Other: multiple moles and palpable lesions over chest and abdomen Neuro: Other: no asterixis or tremor Objective Data Labs CBC & Chem 7: 03/25/21 06:45 03/25/21 06:45 Labs: Laboratory Results - last 24 hr 03/24/21 03/24/21 03/24/21 16:48 16:57 17:01 WBC RBC Hgb Hct MCV MCH MCHC RDW Plt Count MPV Absolute Nucleated RBC Nucleated RBC % (auto) VBG pH 7.25 L VBG pCO2 24 VBG pO2 97 VBG HCO3 11 L VBG O2 Saturation 95.0 VBG Base Excess -14.3 Sodium 138 Potassium 5.1 Chloride 108 Carbon Dioxide 11 L Anion Gap 24 H BUN 111 H* Creatinine 5.40 H* Estim Creat Clear Calc 16.1 Estimated GFR 11 POC Glucose Random Glucose 172 H D Calcium 7.3 L Phosphorus Iron TIBC % Saturation Unsat Iron Binding Ferritin Vitamin B12 25-OH Vitamin D Total Folate Ur Random Sodium 25.0 Urine Creatinine 51.06 03/24/21 03/24/21 03/24/21 19:41 21:10 22:33 WBC RBC Hgb Hct MCV MCH MCHC RDW Plt Count MPV Absolute Nucleated RBC Nucleated RBC % (auto) VBG pH VBG pCO2 VBG pO2 VBG HCO3 VBG O2 Saturation VBG Base Excess Sodium Potassium Chloride Carbon Dioxide Anion Gap BUN Creatinine Estim Creat Clear Calc Estimated GFR POC Glucose 135 H 112 93 Random Glucose Calcium Phosphorus Iron TIBC % Saturation Unsat Iron Binding Ferritin Vitamin B12 25-OH Vitamin D Total Folate Ur Random Sodium Urine Creatinine 03/25/21 03/25/21 03/25/21 06:44 06:44 06:45 WBC 10.2 RBC 2.92 L Hgb 8.4 L Hct 27.4 L MCV 93.8 MCH 28.8 MCHC 30.7 L RDW 20.8 H Plt Count 198 MPV 9.8 Absolute Nucleated RBC 0.030 H Nucleated RBC % (auto) 0.3 H VBG pH VBG pCO2 VBG pO2 VBG HCO3 VBG O2 Saturation VBG Base Excess Sodium Potassium Chloride Carbon Dioxide Anion Gap BUN Creatinine Estim Creat Clear Calc Estimated GFR POC Glucose Random Glucose Calcium Phosphorus Iron 30 L TIBC 268 % Saturation 11 L Unsat Iron Binding 238 Ferritin 154 Vitamin B12 520 25-OH Vitamin D Total Folate 4.6 Ur Random Sodium Urine Creatinine 03/25/21 03/25/21 03/25/21 06:45 06:45 07:04 WBC RBC Hgb Hct MCV MCH MCHC RDW Plt Count MPV Absolute Nucleated RBC Nucleated RBC % (auto) VBG pH VBG pCO2 VBG pO2 VBG HCO3 VBG O2 Saturation VBG Base Excess Sodium 140 Potassium 5.0 Chloride 108 Carbon Dioxide 16 L Anion Gap 21 H BUN 114 H* Creatinine 5.55 H* Estim Creat Clear Calc 15.7 Estimated GFR 10 POC Glucose 69 Random Glucose 67 D Calcium 7.3 L Phosphorus 11.9 H Iron TIBC % Saturation Unsat Iron Binding Ferritin Vitamin B12 25-OH Vitamin D Total 12.8 Folate Ur Random Sodium Urine Creatinine 03/25/21 11:14 WBC RBC Hgb Hct MCV MCH MCHC RDW Plt Count MPV Absolute Nucleated RBC Nucleated RBC % (auto) VBG pH VBG pCO2 VBG pO2 VBG HCO3 VBG O2 Saturation VBG Base Excess Sodium Potassium Chloride Carbon Dioxide Anion Gap BUN Creatinine Estim Creat Clear Calc Estimated GFR POC Glucose 112 Random Glucose Calcium Phosphorus Iron TIBC % Saturation Unsat Iron Binding Ferritin Vitamin B12 25-OH Vitamin D Total Folate Ur Random Sodium Urine Creatinine Microbiology Microbiology Results: Microbiology 03/23/21 16:01 Urine clean catch - Urine streeter top Urine Culture - Final Escherichia coli 03/23/21 15:30 Blood - Venous Blood Culture - Preliminary No growth after 24 hours. 03/23/21 15:30 Blood - Venous Blood Culture - Preliminary No growth after 24 hours. Procedures Date of Service Date of Service: 03/25/21 Assessment & Plan Assessment and plan (1) Acute kidney injury superimposed on CKD: Status: Acute (2) CKD (chronic kidney disease), stage IV: Status: Acute (3) BPH (benign prostatic hyperplasia): Status: Acute (4) HTN (hypertension): Status: Acute (5) Normocytic anemia: Status: Acute (6) High anion gap metabolic acidosis: Status: Acute Assessment and Plan: The patient is an elderly gentleman with advanced CKD , actually stage 5 with baseline creat 3.8 recently and eGFR 15; he presents now with fall at home, weakness. His eGFR is now 10-11. He has no GI uremic symptoms but his weakness certainly could be due to uremia. He had hematuria and is undertaking bladder irrigation. There was no hydronephrosis. The urine is clear now. There is no urgent need for dialysis but I spoke with him today via site interpreter that unless renal function significantly improves, I anticipate initiating dialysis this admission Recommend: Stop bladder irrigation Urology consult for hematuria Change to regular patel cath Plan for placement of permcath on am if no improvement in kidney function Time Spent With Patient Time: Total time spent is greater than 50% in coordination of care (as documented) at patient's floor/unit and/or counseling patient: Progress Note: Quality Stroke Does the patient have a stroke diagnosis?: No
--- NOTE | 2021-03-25 15:21 | HO.PM.IMPN ---
Subjective Subjective Date of Service: 03/25/21 Interval History: ?The patient was seen and evaluated this morning Laying? in bed, feels tired with no energy and feeling very weak On oxygen supplement More lethargic and confused today and unable to provide much of history No reported other overnight events. Systemic review: No fever or chills but report significant weakness No chest pain, palpitation shortness of breath and dysnea on exertion No abdominal pain, nausea or vomiting Review of Systems Review of Systems: Yes all other systems are reviewed and are negative Physical Exam Vital Signs: Vital Signs: Last Vital Signs Temp 97.3 F 03/25/21 15:10 Pulse 74 03/25/21 15:10 Resp 18 03/25/21 15:10 BP 117/78 03/25/21 15:10 Pulse Ox 94 03/25/21 15:10 Oxygen Flow Rate 2 03/23/21 14:58 Body Mass Index 39.6 Const: Other: ?Constitutional : Alert, disoriented, looks ill and tired, more confused Neck : Normal inspection, Supple Cardiovascular : RRR, S1 S2, trace lower extremity edema Respiratory : fair bilateral air entry,? basal fine crackles, wheezes or rhonchi on O2 supplement Gastrointestinal:? soft, lax, Non tender Skin : Warm, Dry Neurological : Alert & disoriented,, No focal deficit, lethargic Objective Data Active Medications Acetaminophen (Acetaminophen 325 Mg Tablet) 650 mg PO Q6H PRN PRN Reason: Pain, Mild (Pain Scale 1-3) Aripiprazole (Aripiprazole 10 Mg Tablet) 10 mg PO DAILY [facility] Last Admin: 03/25/21 08:43 Dose: 10 mg Documented by: YANELI Ascorbic Acid (Ascorbic Acid 250 Mg Tablet) 250 mg PO BID [facility] Last Admin: 03/25/21 08:43 Dose: 250 mg Documented by: YANELI Dextrose (Dextrose 50 % 25 Gm/50 Ml Vial) 25 gm IVPUSH Q15M PRN; Protocol PRN Reason: per Hypoglycemia Standing Ord. Docusate Sodium (Docusate Sodium 100 Mg Capsule) 100 mg PO DAILY PRN PRN Reason: Constipation Furosemide (Furosemide 40 Mg/4 Ml Vial) 40 mg IVPUSH DAILY [facility]; Protocol Last Admin: 03/25/21 08:42 Dose: 40 mg Documented by: YANELI Glucose (Glucose Gel 15 Gm Gel..Gram.) 15 gm PO Q15M PRN; Protocol PRN Reason: per Hypoglycemia Standing Ord. Hydralazine HCl (Hydralazine Hcl 25 Mg Tablet) 75 mg PO TID [facility]; Protocol Last Admin: 03/25/21 08:43 Dose: 75 mg Documented by: YANELI Ceftriaxone Sodium 1 gm/ (Sodium Chloride) 50 mls @ 100 mls/hr IV Q24H [facility] Last Infusion: 03/25/21 01:58 Dose: 0 mls/hr Documented by: OSVALDO Insulin Human Lispro (Insulin Lispro 100 Unit/Ml 3 Ml Vial) 0 unit SUBCUT QIDACHS [facility]; Protocol Last Admin: 03/25/21 11:51 Dose: Not Given Documented by: KEN Non-Admin Reason: No Insulin Coverage Metoprolol Tartrate (Metoprolol Tartrate 50 Mg Tablet) 50 mg PO BID [facility]; Protocol Last Admin: 03/25/21 08:43 Dose: 50 mg Documented by: YANELI Omeprazole (Omeprazole 40 Mg Capsule.) 40 mg PO DAILY@0630 [facility] Last Admin: 03/25/21 06:29 Dose: Not Given Documented by: OSVLADO Non-Admin Reason: Patient Refused Ondansetron HCl (Ondansetron Hcl 4 Mg/2 Ml Vial) 4 mg IVPUSH Q8H PRN PRN Reason: Nausea and Vomiting Oxybutynin Chloride (Oxybutynin Chloride Er 5 Mg Tab.Er.24) 10 mg PO DAILY [facility] Last Admin: 03/25/21 08:44 Dose: 10 mg Documented by: YANELI Sodium Bicarbonate (Sodium Bicarbonate 650 Mg Tablet) 1,300 mg PO TID [facility] Last Admin: 03/25/21 08:44 Dose: 1,300 mg Documented by: YANELI Sodium Chloride (0.9 % Sodium Chloride Flush 3 Ml Syringe) [facility] Last Admin: 03/25/21 08:42 Dose: 3 ml Documented by: YANELI Tamsulosin HCl (Tamsulosin Hcl 0.4 Mg Capsule) 0.4 mg PO DAILY [facility] Last Admin: 03/25/21 08:43 Dose: 0.4 mg Documented by: YANELI Labs CBC & Chem 7: 03/25/21 06:45 03/25/21 06:45 Labs: Laboratory Results - last 24 hr 03/24/21 03/24/21 03/24/21 16:48 16:57 17:01 MCV MCH MCHC RDW Plt Count MPV Absolute Nucleated RBC Nucleated RBC % (auto) VBG pH 7.25 L VBG pCO2 24 VBG pO2 97 VBG HCO3 11 L VBG O2 Saturation 95.0 VBG Base Excess -14.3 Anion Gap 24 H Estim Creat Clear Calc 16.1 Estimated GFR 11 POC Glucose Random Glucose 172 H D Calcium 7.3 L Phosphorus Iron TIBC % Saturation Unsat Iron Binding Ferritin Vitamin B12 25-OH Vitamin D Total Folate Ur Random Sodium 25.0 Urine Creatinine 51.06 03/24/21 03/24/21 03/24/21 19:41 21:10 22:33 MCV MCH MCHC RDW Plt Count MPV Absolute Nucleated RBC Nucleated RBC % (auto) VBG pH VBG pCO2 VBG pO2 VBG HCO3 VBG O2 Saturation VBG Base Excess Anion Gap Estim Creat Clear Calc Estimated GFR POC Glucose 135 H 112 93 Random Glucose Calcium Phosphorus Iron TIBC % Saturation Unsat Iron Binding Ferritin Vitamin B12 25-OH Vitamin D Total Folate Ur Random Sodium Urine Creatinine 03/25/21 03/25/21 03/25/21 06:44 06:44 06:45 MCV 93.8 MCH 28.8 MCHC 30.7 L RDW 20.8 H Plt Count 198 MPV 9.8 Absolute Nucleated RBC 0.030 H Nucleated RBC % (auto) 0.3 H VBG pH VBG pCO2 VBG pO2 VBG HCO3 VBG O2 Saturation VBG Base Excess Anion Gap Estim Creat Clear Calc Estimated GFR POC Glucose Random Glucose Calcium Phosphorus Iron 30 L TIBC 268 % Saturation 11 L Unsat Iron Binding 238 Ferritin 154 Vitamin B12 520 25-OH Vitamin D Total Folate 4.6 Ur Random Sodium Urine Creatinine 03/25/21 03/25/21 03/25/21 06:45 06:45 07:04 MCV MCH MCHC RDW Plt Count MPV Absolute Nucleated RBC Nucleated RBC % (auto) VBG pH VBG pCO2 VBG pO2 VBG HCO3 VBG O2 Saturation VBG Base Excess Anion Gap 21 H Estim Creat Clear Calc 15.7 Estimated GFR 10 POC Glucose 69 Random Glucose 67 D Calcium 7.3 L Phosphorus 11.9 H Iron TIBC % Saturation Unsat Iron Binding Ferritin Vitamin B12 25-OH Vitamin D Total 12.8 Folate Ur Random Sodium Urine Creatinine 03/25/21 11:14 MCV MCH MCHC RDW Plt Count MPV Absolute Nucleated RBC Nucleated RBC % (auto) VBG pH VBG pCO2 VBG pO2 VBG HCO3 VBG O2 Saturation VBG Base Excess Anion Gap Estim Creat Clear Calc Estimated GFR POC Glucose 112 Random Glucose Calcium Phosphorus Iron TIBC % Saturation Unsat Iron Binding Ferritin Vitamin B12 25-OH Vitamin D Total Folate Ur Random Sodium Urine Creatinine Microbiology Microbiology Results: Microbiology 03/23/21 16:01 Urine Culture - Final Urine clean catch - Urine streeter top Escherichia coli 03/23/21 15:30 Blood Culture - Preliminary Blood - Venous No growth after 24 hours. 03/23/21 15:30 Blood Culture - Preliminary Blood - Venous No growth after 24 hours. Assessment and Plan (1) High anion gap metabolic acidosis: Status: Acute (2) Normocytic anemia: Status: Acute (3) CHF exacerbation: Status: Acute (4) Acute kidney injury superimposed on CKD: Status: Acute (5) Acute respiratory failure with hypoxia: Status: Acute (6) Metabolic encephalopathy: Status: Acute (7) Wernickes encephalopathy: Status: Acute Assessment and Plan: 70-year-old male with past medical history as mentioned above who presents hospital with edema and shortness of breath per report from long term # acute hypoxic respiratory failure # likely secondary CHF exacerbation elevated BNP, , chest x-ray suggestive of pulmonary congestion IV Lasix to 40 daily low sodium diet,+ Intake and output unclear from usage of CBI cardiology consult, continue diuresis decrease beta-theresa to 50 b.i.d. Pending echocardiogram # MICHA on CKD Could be secondary to CHF, advancing disease Decrease metoprolol Continue Lasix urine studies Nephrology consult, Plan for placement of permcath on am if no improvement in kidney function follow BMP # high anion gap metabolic acidosis Secondary to Micha I dc bicarb drip Add sodium bicarb p.o. Follow BMP # GI bleed # normocytic anemia Received a unit of blood, at 8.4 today positive occult stool, no overt bleeding noticed start omeprazole GI consult appreciated, hold on intervention at this point To transfuse as needed # Metabolic encephalopathy Multifactorial including acute kidney injury,Wernickes encephalopathy Correct underlying medical problems Vitamin supplement # Hematuria Mechanical after removing the Wooten catheter himself Started on CBI, removed the catheter again Waiting on urology evaluation Monitor with bladder scan # UTI Urine culture growing gram-negative rods continue ceftriaxone # diabetes hold oral antihyperglycemics sliding scale insulin diabetic diet # hypertension continue home antihypertensives DVT prophylaxis SCDs in the setting of anemia with positive stool occult Quality Stroke Does the patient have a stroke diagnosis?: No VTE Prior VTE?: No VTE Risk Level:: Medical - moderate - high VTE Device Contraindication: N/A - Device Ordered VTE Drug Contraindication: Treatment Not Indicated
[2021-03-25 17:17] LABS: Glucose, Whole Blood 142 mg/dL (60-115)
[2021-03-25 20:02] LABS: Glucose, Whole Blood 115 mg/dL (60-115)
--- NOTE | 2021-03-25 20:10 | PC.NURSE ---
Addendum entered by Miesha Estevez RN 03/26/21 06:29: Warming blanket removed rectal temp improved slowly overnight to 98.0 at this time. pt incon of urine, personal care given, remains confused but alert. will report to oncoming Rn Original Note: Pt rectal and oral temp 93.9, pt alert confused at baseline all other vitals signs WNL. MD made aware new orders for blood cultures, chest xray warming blanket, possible aspiration during meals today.
--- NOTE | 2021-03-25 20:11 | PM.EVENT ---
Event Note Date of Service: 03/25/21 Event Note: Hypothermia: Patient was hypothermic to 93.9 F; Patient has UTI-growing E coli but resistant to ceftriaxone. Will change the antibiotics to ertapenem. Will consult ID Will keep the patient on Jim Hugger Will repeat urine, blood cultures; also obtain chest x-ray given concerns for aspiration. Speech and swallow eval.
[2021-03-25] MEDS: Ertapenem Sodium 1 GM in 0.9 % Sodium Chloride 50 ML IV (22:15)
[2021-03-26] VITALS (9 sets, daily range): BP systolic 104–160; BP diastolic 58–87; PULSE 78–88; RESP 18–21; TEMP 35–36.7; O2SAT 92–95
[2021-03-26 07:14] LABS: Glucose, Whole Blood 62 mg/dL (60-115)
[2021-03-26] MEDS: 0.9 % Sodium Chloride Flush 3 ML SYRINGE IVFLUSH ×3 (07:54→20:28)
[2021-03-26 08:26] LABS: Glucose, Whole Blood 125 mg/dL (60-115)
[2021-03-26 09:01] LABS: Glucose, Whole Blood 85 mg/dL (60-115)
[2021-03-26] MEDS: Dextrose 10 % 1,000 ML 50 ML IVCONT (09:01)
[2021-03-26 09:09] LABS: Anion Gap 22 (12-20); B Type Natriuretic Peptide 534 pg/mL (<100); Blood Urea Nitrogen 119 mg/dL (9-16); Calcium 6.8 mg/dL (8.4-10.2); Carbon Dioxide 16 mmol/L (22-29); Chloride 108 mmol/L (96-108); Creatinine Clr Calc Pharmacy 15.2; Estimated Glomerular Filt Rate 10; Glucose Random 137 mg/dL (60-115); Potassium 4.7 mmol/L (3.3-5.1); Sodium 141 mmol/L (135-145)
[2021-03-26 09:27] LABS: Glucose, Whole Blood 81 mg/dL (60-115)
[2021-03-26 10:24] LABS: Alanine Aminotransferase 7 U/L (0-40); Albumin Level 2.7 g/dL (3.5-5.0); Alkaline Phosphatase 93 U/L (39-117); Aspartate Amino Transferase 20 U/L (5-37); Bilirubin Direct 0.4 mg/dL (0.0-0.5); Bilirubin Total 0.7 mg/dL (0.0-1.0)
--- NOTE | 2021-03-26 10:55 | MHC.SLORD ---
Order received for a bedside swallow evaluation and chart was reviewed. Updated with RN, Chloe, who reported that pt is to remain NPO pending a permacath placement, therefore a bedside swallow evaluation was unable to be completed. [employer] to return in the morning.
[2021-03-26] MEDS: Furosemide 40 MG/4 ML VIAL IVPUSH (11:05)
[2021-03-26 11:10] LABS: Glucose, Whole Blood 78 mg/dL (60-115)
--- NOTE | 2021-03-26 12:15 | HO.PM.IMPN ---
Subjective Subjective Date of Service: 03/26/21 Interval History: ?The patient was seen and evaluated this morning Altered mentation this morning, barely responsive Found to be hypothermic overnight, started on IV antibiotics On oxygen supplement More lethargic and confused today and unable to provide much of history No reported other overnight events. Systemic review: Unable to provide history, altered mentation Physical Exam Vital Signs: Vital Signs: Last Vital Signs Temp 98.0 F 03/26/21 11:33 Pulse 87 03/26/21 11:33 Resp 20 03/26/21 11:33 BP 137/79 03/26/21 11:33 Pulse Ox 94 03/26/21 11:33 Oxygen Flow Rate 2 03/23/21 14:58 Body Mass Index 39.6 Const: Other: ?Constitutional : Difficult to arouse, encephalopathic looks ill and tired, more confused Neck : Normal inspection, Supple Cardiovascular : RRR, S1 S2, trace lower extremity edema Respiratory : fair bilateral air entry,? basal fine crackles, wheezes or rhonchi on O2 supplement Gastrointestinal:? soft, lax, Non tender Skin : Warm, Dry Neurological : Encephalopathic, lethargic, No focal deficit, barely answers with yes and no Objective Data Active Medications Acetaminophen (Acetaminophen 325 Mg Tablet) 650 mg PO Q6H PRN PRN Reason: Pain, Mild (Pain Scale 1-3) Aripiprazole (Aripiprazole 10 Mg Tablet) 10 mg PO DAILY [facility] Last Admin: 03/26/21 10:33 Dose: Not Given Documented by: YANELI Non-Admin Reason: NPO Ascorbic Acid (Ascorbic Acid 250 Mg Tablet) 250 mg PO BID [facility] Last Admin: 03/26/21 10:33 Dose: Not Given Documented by: YANELI Non-Admin Reason: NPO Dextrose (Dextrose 50 % 25 Gm/50 Ml Vial) 25 gm IVPUSH Q15M PRN; Protocol PRN Reason: per Hypoglycemia Standing Ord. Last Admin: 03/26/21 07:53 Dose: 25 gm Documented by: YANELI Docusate Sodium (Docusate Sodium 100 Mg Capsule) 100 mg PO DAILY PRN PRN Reason: Constipation Furosemide (Furosemide 40 Mg/4 Ml Vial) 40 mg IVPUSH DAILY [facility]; Protocol Last Admin: 03/26/21 11:05 Dose: 40 mg Documented by: YANELI Glucose (Glucose Gel 15 Gm Gel..Gram.) 15 gm PO Q15M PRN; Protocol PRN Reason: per Hypoglycemia Standing Ord. Hydralazine HCl (Hydralazine Hcl 25 Mg Tablet) 75 mg PO TID [facility]; Protocol Last Admin: 03/26/21 10:33 Dose: Not Given Documented by: YANELI Non-Admin Reason: NPO Dextrose (D10) 1,000 mls @ 50 mls/hr IVCONT .Q20H [facility] Last Admin: 03/26/21 09:01 Dose: 50 mls/hr Documented by: YANELI Meropenem 500 mg/ Sodium (Chloride) 50 mls @ 100 mls/hr IV Q12H [facility] Insulin Human Lispro (Insulin Lispro 100 Unit/Ml 3 Ml Vial) 0 unit SUBCUT QIDACHS [facility]; Protocol Last Admin: 03/26/21 07:40 Dose: Not Given Documented by: KEN Non-Admin Reason: No Insulin Coverage Metoprolol Tartrate (Metoprolol Tartrate 50 Mg Tablet) 50 mg PO BID [facility]; Protocol Last Admin: 03/26/21 10:33 Dose: Not Given Documented by: YANELI Non-Admin Reason: NPO Omeprazole (Omeprazole 40 Mg Capsule.Dr) 40 mg PO DAILY@0630 [facility] Last Admin: 03/26/21 06:11 Dose: Not Given Documented by: OSVALDO Non-Wali Reason: NPO Ondansetron HCl (Ondansetron Hcl 4 Mg/2 Ml Vial) 4 mg IVPUSH Q8H PRN PRN Reason: Nausea and Vomiting Oxybutynin Chloride (Oxybutynin Chloride Er 5 Mg Tab.Er.24) 10 mg PO DAILY [facility] Last Admin: 03/26/21 10:33 Dose: Not Given Documented by: YANELI Non-Admin Reason: NPO Sodium Bicarbonate (Sodium Bicarbonate 650 Mg Tablet) 1,300 mg PO TID [facility] Last Admin: 03/26/21 10:34 Dose: Not Given Documented by: YANELI Non-Admin Reason: NPO Sodium Chloride (0.9 % Sodium Chloride Flush 3 Ml Syringe) 3 ml IVFLUSH QSHIFT [facility] Last Admin: 03/26/21 07:54 Dose: 3 ml Documented by: YANELI Tamsulosin HCl (Tamsulosin Hcl 0.4 Mg Capsule) 0.4 mg PO DAILY [facility] Last Admin: 03/26/21 10:34 Dose: Not Given Documented by: YANELI Non-Admin Reason: NPO Labs CBC & Chem 7: 03/25/21 06:45 03/26/21 08:20 Labs: Laboratory Results - last 24 hr 03/25/21 03/25/21 03/26/21 17:13 19:38 07:10 Anion Gap Estim Creat Clear Calc Estimated GFR POC Glucose 142 H 115 62 Random Glucose Calcium Total Bilirubin Direct Bilirubin AST ALT Alkaline Phosphatase B-Natriuretic Peptide Total Protein Albumin 03/26/21 03/26/21 03/26/21 08:20 08:20 08:21 Anion Gap 22 H Estim Creat Clear Calc 15.2 Estimated GFR 10 POC Glucose 125 H Random Glucose 137 H D Calcium 6.8 L D Total Bilirubin 0.7 Direct Bilirubin 0.4 AST 20 D ALT 7 Alkaline Phosphatase 93 D B-Natriuretic Peptide 534 H Total Protein 6.0 L Albumin 2.7 L 03/26/21 03/26/21 03/26/21 08:46 09:22 11:03 Anion Gap Estim Creat Clear Calc Estimated GFR POC Glucose 85 81 78 Random Glucose Calcium Total Bilirubin Direct Bilirubin AST ALT Alkaline Phosphatase B-Natriuretic Peptide Total Protein Albumin Microbiology Microbiology Results: Microbiology 03/23/21 15:30 Blood Culture - Preliminary Blood - Venous No growth after 48 hours. 03/23/21 15:30 Blood Culture - Preliminary Blood - Venous No growth after 48 hours. 03/23/21 16:01 Urine Culture - Final Urine clean catch - Urine streeter top Escherichia coli Assessment and Plan (1) Metabolic encephalopathy: Status: Acute (2) High anion gap metabolic acidosis: Status: Acute (3) CHF exacerbation: Status: Acute (4) Acute kidney injury superimposed on CKD: Status: Acute (5) Acute UTI: Status: Acute Assessment and Plan: 70-year-old male with past medical history as mentioned above who presents hospital with edema and shortness of breath per report from senior care # Metabolic encephalopathy Multifactorial but mainly you to uremia, HX Wernicke's encephalopathy, UTI Patient will need dialysis To place a Perma catheter today Changed to NPO, do swallowing evaluation when he is more interactive Vitamin supplement # hypothermia 2/2 UTI Urine culture growing gram-negative rods Change ceftriaxone to meropenem Get ID evaluation # acute hypoxic respiratory failure # likely secondary CHF exacerbation CXR showing pulmonary congestion IV Lasix to 40 daily cardiology consult, continue diuresis decrease beta-theresa to 50 b.i.d. Pending echocardiogram # MICHA on CKD Could be secondary to CHF, advancing disease Decrease metoprolol Worsening with BUN of 119 and creatinine of 5.[address] Nephrology consult, consider dialysis follow BMP # high anion gap metabolic acidosis Secondary to Micha I dc bicarb drip Add sodium bicarb p.o. Follow BMP # GI bleed # normocytic anemia positive occult stool, no overt bleeding noticed Received a unit of blood, at 8.4 Omeprazole GI consult appreciated, hold on intervention at this point To transfuse as needed # Hematuria Resolving Mechanical after removing the Wooten catheter himself Discontinue CBI, remove the catheter Waiting on urology evaluation Monitor with bladder scan # diabetes Hypoglycemic this morning for being NPO, start gentle hydration hold oral antihyperglycemics sliding scale insulin diabetic diet # hypertension continue home antihypertensives DVT prophylaxis SCDs in the setting of anemia with positive stool occult Quality Stroke Does the patient have a stroke diagnosis?: No VTE Prior VTE?: No VTE Risk Level:: Medical - moderate - high VTE Device Contraindication: N/A - Device Ordered VTE Drug Contraindication: Treatment Not Indicated
--- NOTE | 2021-03-26 12:54 | P.PNCA_ITS ---
Subjective Subjective Date of Service: 03/26/21 Principal diagnosis: sob, anemia, hematuria, ARF on CKD, CHF Interval history: Cardiology follow up for CHF. Seen at 1000. Today he is observed in bed, opens eyes briefly to verbal/ tactile stimuli, not following commands and nonverbal at present. He is wearing O2 with nasal cannula, No respiratory distress or indication of pain. Review of Systems Review of Systems as above Yes Unobtainable due to mental condition Physical Exam Vital Signs: Last Vital Signs Temp 98.0 F 03/26/21 11:33 Pulse 87 03/26/21 11:33 Resp 20 03/26/21 11:33 BP 137/79 03/26/21 11:33 Pulse Ox 94 03/26/21 11:33 Oxygen Flow Rate 2 03/23/21 14:58 Body Mass Index 39.6 Const Other: in bed, hob elevated 30 degrees. lethargic, not reponding with the exception of opening eyes breifly General: no acute distress Neck Other: soft mass on back of neck - not new Neck: Yes JVD (difficult to assess due to facial hair) Resp Effort & Inspection: not labored Auscultation: clear to auscultation bilaterally, no rales, no rhonchi and no wheezes Cardio Jugular venous distension: JVD present Palpation: normal PMI Rate: regular rate Rhythm: abnormal rhythm (irregularly irreg) Heart sounds: S1 normal heart sound present and S2 normal heart sound present Peripheral pulses: Peripheral pulses 2+ throughout Extrem Other: venous stasis changes to skin on lower legs, no pitting edema noted General: No edema Results Labs and Meds Result diagrams: 03/25/21 06:45 03/26/21 08:20 Lab results: Laboratory Results - last 24 hr 03/25/21 03/25/21 03/26/21 17:13 19:38 07:10 Sodium Potassium Chloride Carbon Dioxide Anion Gap BUN Creatinine Estim Creat Clear Calc Estimated GFR POC Glucose 142 H 115 62 Random Glucose Calcium Total Bilirubin Direct Bilirubin AST ALT Alkaline Phosphatase B-Natriuretic Peptide Total Protein Albumin 03/26/21 03/26/21 03/26/21 08:20 08:20 08:21 Sodium 141 Potassium 4.7 Chloride 108 Carbon Dioxide 16 L Anion Gap 22 H BUN 119 H* Creatinine 5.71 H* Estim Creat Clear Calc 15.2 Estimated GFR 10 POC Glucose 125 H Random Glucose 137 H D Calcium 6.8 L D Total Bilirubin 0.7 Direct Bilirubin 0.4 AST 20 D ALT 7 Alkaline Phosphatase 93 D B-Natriuretic Peptide 534 H Total Protein 6.0 L Albumin 2.7 L 03/26/21 03/26/21 03/26/21 08:46 09:22 11:03 Sodium Potassium Chloride Carbon Dioxide Anion Gap BUN Creatinine Estim Creat Clear Calc Estimated GFR POC Glucose 85 81 78 Random Glucose Calcium Total Bilirubin Direct Bilirubin AST ALT Alkaline Phosphatase B-Natriuretic Peptide Total Protein Albumin Imaging Radiologist's impression: Impressions Chest X-Ray 03/25/21 20:24 IMPRESSION: 1. There are bilateral patchy subsegmental infiltrates suspicious for acute pneumonitis. Progress Note: A&P Assessment and plan (1) Acute on chronic combined systolic (congestive) and diastolic (congestive) heart failure: Status: Acute Assessment and Plan: Admit with sob. CXR with findings consistent with CHF. BNP 506. [facility] Echo December 2020 with low normal EF. CHF on admit in December as well. 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 Being diuresed gently with IV Lasix. Fluid balance not accurate due to CBI for hematuria initially this admit. Today he is more lethargic and not answering questions. He does not appear in acute distress. O2 sat 94% on 3 liters. BNP 534 today. He does have AKF on CKD this a dmit with Cr in 5s which contributes to his fluid overload.?Currently on 1/2 his usual dose of BB due to CHF exacerbation. Can continue that dose for now. Continue with IV Lasix, unless Nephrology recommends otherwise. Agree with plan for dialysis. strict I+O monitoring. Close monitoring of electrolyte and kidney function. O2 supplement to keep sat > 90%.? (2) Acute kidney injury superimposed on CKD: Status: Acute (3) Acute UTI: Status: Acute Assessment and Plan: Being managed by hospitalist (4) Metabolic encephalopathy: Status: Acute Fall Risk Details Current Medications: Current Medications Generic Name Dose Route Start Last Admin Trade Name Freq PRN Reason Stop Dose Admin Acetaminophen 650 mg 03/24/21 00:12 Acetaminophen 325 Mg Tablet PO Q6H PRN Pain, Mild (Pain Scale 1-3) Aripiprazole 10 mg 03/24/21 09:00 03/26/21 10:33 Aripiprazole 10 Mg Tablet PO Not Given DAILY [facility] Ascorbic Acid 250 mg 03/24/21 09:00 03/26/21 10:33 Ascorbic Acid 250 Mg Tablet PO Not Given BID [facility] Dextrose 25 gm 03/24/21 07:02 03/26/21 07:53 Dextrose 50 % 25 Gm/50 Ml Vial IVPUSH 25 gm Q15M PRN Administration per Hypoglycemia Standing Ord. Protocol Docusate Sodium 100 mg 03/24/21 00:12 Docusate Sodium 100 Mg Capsule PO DAILY PRN Constipation Furosemide 40 mg 03/25/21 09:00 03/26/21 11:05 Furosemide 40 Mg/4 Ml Vial IVPUSH 40 mg DAILY [facility] Administration Protocol Glucose 15 gm 03/24/21 07:02 Glucose Gel 15 Gm Gel..Gram. PO Q15M PRN per Hypoglycemia Standing Ord. Protocol Hydralazine HCl 75 mg 03/24/21 09:00 03/26/21 10:33 Hydralazine Hcl 25 Mg Tablet PO Not Given TID [facility] Protocol Dextrose 1,000 mls @ 50 mls/hr 03/26/21 09:00 03/26/21 09:01 D10 IVCONT 50 mls/hr .Q20H [facility] Administration Meropenem 500 mg/ Sodium 50 mls @ 100 mls/hr 03/26/21 20:00 Chloride IV Q12H [facility] Insulin Human Lispro 0 unit 03/24/21 07:30 03/26/21 12:28 Insulin Lispro 100 Unit/Ml 3 Ml Vial SUBCUT Not Given QIDACHS [facility] Protocol Metoprolol Tartrate 50 mg 03/24/21 21:00 03/26/21 10:33 Metoprolol Tartrate 50 Mg Tablet PO Not Given BID [facility] Protocol Omeprazole 40 mg 03/25/21 06:30 03/26/21 06:11 Omeprazole 40 Mg Capsule.Dr PO Not Given DAILY@0630 [facility] Ondansetron HCl 4 mg 03/24/21 00:12 Ondansetron Hcl 4 Mg/2 Ml Vial IVPUSH Q8H PRN Nausea and Vomiting Oxybutynin Chloride 10 mg 03/24/21 09:00 03/26/21 10:33 Oxybutynin Chloride Er 5 Mg Tab.Er.24 PO Not Given DAILY [facility] Sodium Bicarbonate 1,300 mg 03/24/21 15:00 03/26/21 10:34 Sodium Bicarbonate 650 Mg Tablet PO Not Given TID [facility] Sodium Chloride 3 ml 03/24/21 00:12 03/26/21 07:54 0.9 % Sodium Chloride Flush 3 Ml Syringe IVFLUSH 3 ml QSHIFT [facility] Administration Tamsulosin HCl 0.4 mg 03/24/21 09:00 03/26/21 10:34 Tamsulosin Hcl 0.4 Mg Capsule PO Not Given DAILY [facility] Time Spent With Patient Time: Total time spent is greater than 50% in coordination of care (as documente d) at patient's floor/unit and/or counseling patient: Time with patient: 15 - 24 minutes Progress Note: Quality Stroke Does the patient have a stroke diagnosis?: No Procedures Date of Service Date of Service: 03/26/21
--- NOTE | 2021-03-26 13:06 | P.CNID_ITS ---
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 BPH (benign prostatic hyperplasia) Cardiomegaly Chronic kidney disease HTN (hypertension) Myocardial infarction Old myocardial infarction Systolic heart failure Type 2 diabetes mellitus Unspecified convulsions Unspecified sequelae of cerebral infarction Wernickes encephalopathy Family History Family history: reviewed and not pertinent Social History Social History Household Members: None Housing: Senior Living Housing Other:: [facility] Do you presently have visiting nurse or other home services: No Patient Tobacco Use Status: Tobacco use Unknown service: No Current occupational status: disabled Meds Allergies Allergy/AdvReac Type Severity Reaction Status Date / Time haloperidol [From HALDOL] Allergy Unknown UNKNOWN Verified 03/23/21 14:58 penicillin V Allergy Unknown Unknown Verified 03/23/21 14:58 Penicillins [PENICILLINS] Allergy Unknown UNKNOWN Verified 03/23/21 14:58 Active Medications: Current Medications Generic Name Dose Route Start Last Admin Trade Name Freq PRN Reason Stop Dose Admin Acetaminophen 650 mg 03/24/21 00:12 Acetaminophen 325 Mg Tablet PO Q6H PRN Pain, Mild (Pain Scale 1-3) Aripiprazole 10 mg 03/24/21 09:00 03/26/21 10:33 Aripiprazole 10 Mg Tablet PO Not Given DAILY [facility] Ascorbic Acid 250 mg 03/24/21 09:00 03/26/21 10:33 Ascorbic Acid 250 Mg Tablet PO Not Given BID [facility] Dextrose 25 gm 03/24/21 07:02 03/26/21 07:53 Dextrose 50 % 25 Gm/50 Ml Vial IVPUSH 25 gm Q15M PRN Administration per Hypoglycemia Standing Ord. Protocol Docusate Sodium 100 mg 03/24/21 00:12 Docusate Sodium 100 Mg Capsule PO DAILY PRN Constipation Furosemide 40 mg 03/25/21 09:00 03/26/21 11:05 Furosemide 40 Mg/4 Ml Vial IVPUSH 40 mg DAILY [facility] Administration Protocol Glucose 15 gm 03/24/21 07:02 Glucose Gel 15 Gm Gel..Gram. PO Q15M PRN per Hypoglycemia Standing Ord. Protocol Hydralazine HCl 75 mg 03/24/21 09:00 03/26/21 10:33 Hydralazine Hcl 25 Mg Tablet PO Not Given TID [facility] Protocol Dextrose 1,000 mls @ 50 mls/hr 03/26/21 09:00 03/26/21 09:01 D10 IVCONT 50 mls/hr .Q20H [facility] Administration Meropenem 500 mg/ Sodium 50 mls @ 100 mls/hr 03/26/21 20:00 Chloride IV Q12H [facility] Insulin Human Lispro 0 unit 03/24/21 07:30 03/26/21 12:28 Insulin Lispro 100 Unit/Ml 3 Ml Vial SUBCUT Not Given QIDACHS [facility] Protocol Metoprolol Tartrate 50 mg 03/24/21 21:00 03/26/21 10:33 Metoprolol Tartrate 50 Mg Tablet PO Not Given BID [facility] Protocol Omeprazole 40 mg 03/25/21 06:30 03/26/21 06:11 Omeprazole 40 Mg Capsule.Dr PO Not Given DAILY@0630 [facility] Ondansetron HCl 4 mg 03/24/21 00:12 Ondansetron Hcl 4 Mg/2 Ml Vial IVPUSH Q8H PRN Nausea and Vomiting Oxybutynin Chloride 10 mg 03/24/21 09:00 03/26/21 10:33 Oxybutynin Chloride Er 5 Mg Tab.Er.24 PO Not Given DAILY [facility] Sodium Bicarbonate 1,300 mg 03/24/21 15:00 03/26/21 10:34 Sodium Bicarbonate 650 Mg Tablet PO Not Given TID [facility] Sodium Chloride 3 ml 03/24/21 00:12 03/26/21 07:54 0.9 % Sodium Chloride Flush 3 Ml Syringe IVFLUSH 3 ml QSHIFT [facility] Administration Tamsulosin HCl 0.4 mg 03/24/21 09:00 03/26/21 10:34 Tamsulosin Hcl 0.4 Mg Capsule PO Not Given DAILY [facility] Physical Exam Vital Signs: Vital Signs: Last Vital Signs Temp 98.0 F 03/26/21 11:33 Pulse 87 03/26/21 11:33 Resp 20 03/26/21 11:33 BP 137/79 03/26/21 11:33 Pulse Ox 94 03/26/21 11:33 Oxygen Flow Rate 2 03/23/21 14:58 Body Mass Index 39.6 Const: General: cooperative HENMT: Head: Yes normal to inspection Mouth: Normal oral and palatal mucosa present Eyes: General: appearance normal, both eyes and all related structures Resp: Effort & Inspection: normal respiratory effort Cardio: Rate: regular rate Rhythm: regular rhythm GI: Palpation (GI): Soft to palpation and nontender Skin: General skin exam: no rashes or lesions noted Results Labs CBC & Chem 7: 03/31/21 05:33 03/31/21 05:33 Labs: BMP 03/26/21 08:20 Sodium 141 Potassium 4.7 Chloride 108 Carbon Dioxide 16 L BUN 119 H* Creatinine 5.71 H* Calcium 6.8 L D Liver Function 03/26/21 Range/Units 08:20 Total Bilirubin 0.7 (0.0-1.0) mg/dL Direct Bilirubin 0.4 (0.0-0.5) mg/dL AST 20 D (5-37) U/L ALT 7 (0-40) U/L Alkaline Phosphatase 93 D (39-117) U/L Albumin 2.7 L (3.5-5.0) g/dL Microbiology Microbiology Results: Microbiology 03/23/21 15:30 Blood - Venous Blood Culture - Preliminary No growth after 48 hours. 03/23/21 15:30 Blood - Venous Blood Culture - Preliminary No growth after 48 hours. 03/23/21 16:01 Urine clean catch - Urine streeter top Urine Culture - Final Escherichia coli Assessment and Plan (1) Metabolic encephalopathy: Status: Acute He has symptoms reflective of E coli UTI It is ESBL (2) Wernickes encephalopathy: Status: Acute (3) Acute respiratory failure with hypoxia: Status: Acute (4) Urinary urgency: Status: Acute (5) Acute UTI: Status: Acute 14 d IV antibiotics on discharge,.5 g IV Ertapenem to finish
[2021-03-26 13:52] LABS: Complement C3 110 mg/dL (82-185)
--- NOTE | 2021-03-26 16:08 | MHC.CM.PN ---
Male 70 Resident of [facility]. DP is to return to [facility] via BLS. HD planned for 03/27 per MD rounds. CM will follow.
[2021-03-26 16:25] LABS: Glucose, Whole Blood 71 mg/dL (60-115)
[2021-03-26 20:25] LABS: Glucose, Whole Blood 87 mg/dL (60-115)
[2021-03-27] VITALS (11 sets, daily range): BP systolic 113–150; BP diastolic 63–80; PULSE 80–98; RESP 15–20; TEMP 36.6–37; O2SAT 90–95
[2021-03-27] MEDS: Dextrose 10 % 1,000 ML 50 ML IVCONT (05:49)
[2021-03-27 06:49] LABS: Hematocrit 24.9 % (42-52); Hemoglobin 7.6 g/dl (14.0-18.0); Mean Corpuscular HGB Conc 30.5 g/dl (31.0-36.0); Mean Corpuscular Hemoglobin 28.9 pg (27.0-33.0); Mean Corpuscular Volume 94.7 fL (80-98); Mean Platelet Volume 9.8 fL (9.4-12.4); Platelet Count 162 X10*3/uL (160-400); Red Blood Count 2.63 X10*6/uL (4.60-5.80); Red Cell Distribution Width 20.8 % (11.0-16.0); White Blood Count 6.8 X10*3/uL (4.8-10.8)
[2021-03-27 07:05] LABS: B Type Natriuretic Peptide 500 pg/mL (<100)
[2021-03-27 07:20] LABS: Glucose, Whole Blood 91 mg/dL (60-115)
[2021-03-27 07:28] LABS: Anion Gap 20 (12-20); Blood Urea Nitrogen 119 mg/dL (9-16); Calcium 6.7 mg/dL (8.4-10.2); Carbon Dioxide 17 mmol/L (22-29); Chloride 108 mmol/L (96-108); Creatinine Clr Calc Pharmacy 14.7; Estimated Glomerular Filt Rate 10; Glucose Random 82 mg/dL (60-115); Potassium 4.3 mmol/L (3.3-5.1); Sodium 141 mmol/L (135-145)
--- NOTE | 2021-03-27 09:15 | PM.PNNEP ---
Subjective Subjective Date of Service: 03/27/21 Principal diagnosis: sob, anemia, hematuria, ARF on CKD, CHF Interval history: ?The patient was seen and evaluated this morning Altered mentation this morning, barely responsive Found to be hypothermic overnight, started on IV antibiotics On oxygen supplement More lethargic and confused today and unable to provide much of history No reported other overnight events. Systemic review: Unable to provide history, altered mentation Physical Exam Vital Signs: Vital Signs: Last Vital Signs Temp 98.1 F 03/27/21 07:33 Pulse 89 03/27/21 07:33 Resp 20 03/27/21 07:33 BP 143/77 H 03/27/21 07:33 Pulse Ox 95 03/27/21 07:33 Oxygen Flow Rate 2 03/23/21 14:58 Body Mass Index 39.6 Const: General: ill appearing, lethargic and patient obtunded Orientation/consciousness: patient obtunded and lethargic Neck: Neck: Yes no lymphadenopathy and Yes no JVD Resp: Effort & Inspection: abnormal respiratory pattern and uses accessory muscles Cardio: Jugular venous distension: no JVD Rate: regular rate Rhythm: abnormal rhythm GI: Inspection: Yes distended Neuro: General: patient obtunded Extrem: Other: no edema Objective Data Labs CBC & Chem 7: 03/27/21 06:07 03/27/21 06:07 Labs: Laboratory Results - last 24 hr 03/25/21 03/26/21 03/26/21 06:44 08:20 09:22 WBC RBC Hgb Hct MCV MCH MCHC RDW Plt Count MPV Absolute Nucleated RBC Nucleated RBC % (auto) Sodium Potassium Chloride Carbon Dioxide Anion Gap BUN Creatinine Estim Creat Clear Calc Estimated GFR POC Glucose 81 Random Glucose Calcium Total Bilirubin 0.7 Direct Bilirubin 0.4 AST 20 D ALT 7 Alkaline Phosphatase 93 D B-Natriuretic Peptide Total Protein 6.0 L Albumin 2.7 L Complement C3 110 Complement C4 20 03/26/21 03/26/21 03/26/21 11:03 16:22 20:19 WBC RBC Hgb Hct MCV MCH MCHC RDW Plt Count MPV Absolute Nucleated RBC Nucleated RBC % (auto) Sodium Potassium Chloride Carbon Dioxide Anion Gap BUN Creatinine Estim Creat Clear Calc Estimated GFR POC Glucose 78 71 87 Random Glucose Calcium Total Bilirubin Direct Bilirubin AST ALT Alkaline Phosphatase B-Natriuretic Peptide Total Protein Albumin Complement C3 Complement C4 03/27/21 03/27/21 03/27/21 06:07 06:07 06:07 WBC 6.8 RBC 2.63 L Hgb 7.6 L Hct 24.9 L MCV 94.7 MCH 28.9 MCHC 30.5 L RDW 20.8 H Plt Count 162 MPV 9.8 Absolute Nucleated RBC 0.000 Nucleated RBC % (auto) 0.0 Sodium 141 Potassium 4.3 Chloride 108 Carbon Dioxide 17 L Anion Gap 20 BUN 119 H* Creatinine 5.91 H* Estim Creat Clear Calc 14.7 Estimated GFR 10 POC Glucose Random Glucose 82 D Calcium 6.7 L Total Bilirubin Direct Bilirubin AST ALT Alkaline Phosphatase B-Natriuretic Peptide 500 H Total Protein Albumin Complement C3 Complement C4 03/27/21 07:07 WBC RBC Hgb Hct MCV MCH MCHC RDW Plt Count MPV Absolute Nucleated RBC Nucleated RBC % (auto) Sodium Potassium Chloride Carbon Dioxide Anion Gap BUN Creatinine Estim Creat Clear Calc Estimated GFR POC Glucose 91 Random Glucose Calcium Total Bilirubin Direct Bilirubin AST ALT Alkaline Phosphatase B-Natriuretic Peptide Total Protein Albumin Complement C3 Complement C4 Microbiology Microbiology Results: Microbiology 03/25/21 20:35 Blood - Venous Blood Culture - Preliminary No growth after 24 hours. 03/25/21 20:30 Blood - Venous Blood Culture - Preliminary No growth after 24 hours. 03/23/21 15:30 Blood - Venous Blood Culture - Preliminary No growth after 48 hours. 03/23/21 15:30 Blood - Venous Blood Culture - Preliminary No growth after 48 hours. 03/23/21 16:01 Urine clean catch - Urine streeter top Urine Culture - Final Escherichia coli Procedures Date of Service Date of Service: 03/27/21 Assessment & Plan Assessment and plan (1) Wernickes encephalopathy: Status: Acute (2) Metabolic encephalopathy: Status: Acute (3) Normocytic anemia: Status: Acute (4) Acute kidney injury superimposed on CKD: Status: Acute (5) CKD (chronic kidney disease), stage IV: Status: Acute (6) HTN (hypertension): Status: Acute (7) Acute UTI: Status: Acute Assessment and Plan: Pt is uremic and renal function not improving. Will attempt to speak with family regarding consideration of dialysis. He has indication for dialysis: altered mental status. Will need permcath place for dialysis so keep NPO and arrange for this with IR if family agrees. Time Spent With Patient Time: Total time spent is greater than 50% in coordination of care (as documented) at patient's floor/unit and/or counseling patient: Progress Note: Quality Stroke Does the patient have a stroke diagnosis?: No
[2021-03-27 10:29] LABS: Iron 44 mcg/dL (45-160); Percent Iron Saturation 19 % (15-50); Phosphorus 12.1 mg/dL (2.7-4.5); Total Iron Binding Capacity 230 mcg/dL (228-428); Unsaturated Iron Binding 186 ug/dL
[2021-03-27 10:39] LABS: Ferritin 168 ng/mL (20-250)
--- NOTE | 2021-03-27 10:52 | MHC.SL.SWA ---
Speech Pathologist Impression: Risk of Aspiration Oral Phase Dysphagia Risk of Aspiration Due to: Neurological Condition Reduced Cognition Dysphasia Diet Status: Upgrade Liquid Consistency and Strategies for Safe Swallow: Liquid Intake Recommendation: Thin Liquid Intake Strategies: Small Sips No Straws Solid Food Consistency: Dietary Recommendations: Grnd/Mech Altered (NDD2) Additional Modifications to Solid Foods: Recommend GROUND/MECH ALTERED (NDD2) solids and THIN liquids, with pills CRUSHED in PUREE. Patient is edentulous. Recommend food to be moistened and softened with sauce/gravy. Recommend oral cavity check to ensure clearance and strategies to promote oral clearance: small bites, alternate bite of food with sip of liquid. Patient requires total 1:1 assistance feeding. Recommend aspiration precautions. Oral Medication Intake: Crushed with Puree Compensatory Strategies and Precautions to be Taken for Safe Swallow: Sitting Upright (90 deg) No Straw Small Bites and Sips Alternate Liquids/Solids Rate of Ingestion Change Oral Check Avoid Specific Foods Supervision While Eating and Drinking for Safe Swallow: Total Assistance Foods to Avoid: Avoid tough, hard, and sticky foods. Swallowing Recommended Treatments: Compens. Strategy Educat. Recommendation for Speech: Inpatient Speech Therapy Comment: Recommend GROUND/MECH ALTERED (NDD2) solids and THIN liquids, with pills CRUSHED in PUREE. Patient is edentulous. Recommend food to be moistened and softened with sauce/gravy. Recommend oral cavity check to ensure clearance and strategies to promote oral clearance: small bites, alternate bite of food with sip of liquid. Patient requires total 1:1 assistance feeding. Recommend aspiration precautions. DIRECTOR CORPORATE COMMUNICATIONS will follow up tomorrow morning to monitor tolerance. Asbestos Handler Clinican/Clinical Fellow: No Supervisory Statement: I have reviewed and agree with the student/clinical fellow's documentation: N/A Speech Language Pathologist: Sophie Rivera M.A., [facility]-DIRECTOR CORPORATE COMMUNICATIONS
--- NOTE | 2021-03-27 11:25 | PM.PNCARD ---
Subjective Subjective Date of Service: 03/27/21 <MARK Thomas - Last Filed: 03/27/21 12:01> 03/27/21 <Thomas Mchugh MD - Last Filed: 03/27/21 20:53> Principal diagnosis: sob, anemia, hematuria, ARF on CKD, CHF <MARK Thomas - Last Filed: 03/27/21 12:01> Interval history: Cardiology follow up for CHF. Seen at 1000. Today he is observed resting in bed. Easily arousable with verbal stimuli, does fall back asleep easily. Able to tell me that he is in hospital , has no sob and no pain. Breathing seems unlabored. Not coughing. Wears O2 with cannula. No pitting edema noted. Dialysis catherter right IJ. <MARK Thomas - Last Filed: 03/27/21 12:01> Review of Systems Review of Systems as above <MARK Thomas - Last Filed: 03/27/21 12:01> Yes Unobtainable due to mental status <MARK Thomas - Last Filed: 03/27/21 12:01> Physical Exam Vital Signs: Last Vital Signs Temp 98.1 F 03/27/21 07:33 Pulse 89 03/27/21 07:33 Resp 20 03/27/21 07:33 BP 143/77 H 03/27/21 07:33 Pulse Ox 95 03/27/21 07:33 Oxygen Flow Rate 2 03/23/21 14:58 Body Mass Index 39.6 <MARK Thomas - Last Filed: 03/27/21 12:01> Const Other: easily arousable verbal stimuli, falls asleep quickly. answers questions with one word answers. <MARK Thomas - Last Filed: 03/27/21 12:01> General: no acute distress <MARK Thomas - Last Filed: 03/27/21 12:01> HENMT Other: soft mass behind neck - no noted JVD - difficult to assess due to facial hair, right IJ dialysis catheter. <MARK Thomas - Last Filed: 03/27/21 12:01> Resp Effort & Inspection: normal respiratory effort <WALI ThomasC - Last Filed: 03/27/21 12:01> Auscultation: clear to auscultation bilaterally, no rales, no rhonchi and no wheezes <WALI ThomasC - Last Filed: 03/27/21 12:01> Cardio Palpation: normal PMI <WALI ThomasC - Last Filed: 03/27/21 12:01> Rate: regular rate <Jazmin Pack NPC - Last Filed: 03/27/21 12:01> Rhythm: regular rhythm <Jazmin Pack NPC - Last Filed: 03/27/21 12:01> Heart sounds: S1 normal heart sound present and S2 normal heart sound present <Jazmin Pack NPC - Last Filed: 03/27/21 12:01> GI Other: Soft, no facial grimaces to palpation <Jazmin Pack NP-C - Last Filed: 03/27/21 12:01> Inspection: Yes normal to inspection <Jazmin Pack NPC - Last Filed: 03/27/21 12:01> Extrem Other: venous stasis changes to lower legs <WALI ThomasC - Last Filed: 03/27/21 12:01> General: No edema <Jazmin Pack NP - Last Filed: 03/27/21 12:01> Results Labs and Meds Result diagrams: : 03/27/21 18:53 03/27/21 06:07 <Jazmin Pack NP - Last Filed: 03/27/21 12:01> Lab results: Laboratory Results - last 24 hr 03/25/21 03/26/21 03/26/21 06:44 16:22 20:19 WBC RBC Hgb Hct MCV MCH MCHC RDW Plt Count MPV Absolute Nucleated RBC Nucleated RBC % (auto) Sodium Potassium Chloride Carbon Dioxide Anion Gap BUN Creatinine Estim Creat Clear Calc Estimated GFR POC Glucose 71 87 Random Glucose Calcium Phosphorus Iron TIBC % Saturation Unsat Iron Binding Ferritin B-Natriuretic Peptide Complement C3 110 Complement C4 20 03/27/21 03/27/21 03/27/21 06:07 06:07 06:07 WBC 6.8 RBC 2.63 L Hgb 7.6 L Hct 24.9 L MCV 94.7 MCH 28.9 MCHC 30.5 L RDW 20.8 H Plt Count 162 MPV 9.8 Absolute Nucleated RBC 0.000 Nucleated RBC % (auto) 0.0 Sodium 141 Potassium 4.3 Chloride 108 Carbon Dioxide 17 L Anion Gap 20 BUN 119 H* Creatinine 5.91 H* Estim Creat Clear Calc 14.7 Estimated GFR 10 POC Glucose Random Glucose 82 D Calcium 6.7 L Phosphorus 12.1 H Iron 44 L TIBC 230 % Saturation 19 Unsat Iron Binding 186 Ferritin 168 B-Natriuretic Peptide 500 H Complement C3 Complement C4 03/27/21 07:07 WBC RBC Hgb Hct MCV MCH MCHC RDW Plt Count MPV Absolute Nucleated RBC Nucleated RBC % (auto) Sodium Potassium Chloride Carbon Dioxide Anion Gap BUN Creatinine Estim Creat Clear Calc Estimated GFR POC Glucose 91 Random Glucose Calcium Phosphorus Iron TIBC % Saturation Unsat Iron Binding Ferritin B-Natriuretic Peptide Complement C3 Complement C4 <MARK Thomas - Last Filed: 03/27/21 12:01> Progress Note: A&P Assessment and plan (1) CHF exacerbation: Status: Acute <MARK Thomas - Last Filed: 03/27/21 12:01> Assessment and Plan: Admit with sob. CXR with findings consistent with CHF. BNP 506. [facility] Echo December 2020 with low normal EF. CHF on admit in December as well. 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 This admit has been gently diuresed with IV Lasix. He has ARF on CKD with Cr in 5s. Fluid balance not accurate due to CBI for hematuria initially this admit. On exam he has no significant JVD or rales. BNP remains elevated at 500. O2 sat 95% on RA. Cr 5.91. Discussed case with Dr Mchugh. Would continue IV Lasix at present. Dialysis today as directed by nephrology. Further management of diuretic can be determined by nephrology. ?Currently on 1/2 his usual dose of BB due to CHF exacerbation. Once more euvolemic he can resume his usual home Metoprolol. Continue strict? I+O? monitoring. Close monitoring of electrolyte and kidney function. O2 supplement to keep sat > 90%.? We will follow as needed for now. <MARK Thomas - Last Filed: 03/27/21 12:01> (2) Acute kidney injury superimposed on CKD: Status: Acute <MARK Thomas - Last Filed: 03/27/21 12:01> (3) Acute respiratory failure with hypoxia: Status: Acute <MARK Thomas - Last Filed: 03/27/21 12:01> (4) Metabolic encephalopathy: Status: Acute <MARK Thomas - Last Filed: 03/27/21 12:01> (5) Afib: Status: Acute <MARK Thomas - Last Filed: 03/27/21 12:01> Assessment and Plan: Hx chronic afib. Tele this admit does show afib with controlled rates. On Metoprolol for rate control. Not on anticoagulation in past due to fall risk and anemia - has anemia with Hgb 7.6 at this time. Has been seen by GI. <MARK Thomas - Last Filed: 03/27/21 12:01> Fall Risk Details Current Medications: Current Medications Generic Name Dose Route Start Last Admin Trade Name Freq PRN Reason Stop Dose Admin Acetaminophen 650 mg 03/24/21 00:12 Acetaminophen 325 Mg Tablet PO Q6H PRN Pain, Mild (Pain Scale 1-3) Aripiprazole 10 mg 03/24/21 09:00 03/27/21 10:39 Aripiprazole 10 Mg Tablet PO Not Given DAILY [facility] Ascorbic Acid 250 mg 03/24/21 09:00 03/27/21 10:40 Ascorbic Acid 250 Mg Tablet PO Not Given BID SHANE Calcitriol 0.5 mcg 03/28/21 09:00 Calcitriol 0.25 Mcg Capsule PO MoWeFr@0900 SHANE Dextrose 25 gm 03/24/21 07:02 03/26/21 07:53 Dextrose 50 % 25 Gm/50 Ml Vial IVPUSH 25 gm Q15M PRN Administration per Hypoglycemia Standing Ord. Protocol Docusate Sodium 100 mg 03/24/21 00:12 Docusate Sodium 100 Mg Capsule PO DAILY PRN Constipation Epoetin Momo 20,000 unit 03/27/21 10:00 Epoetin Momo 20,000 Unit/Ml Vial SUBCUT Q7D [facility] Furosemide 40 mg 03/25/21 09:00 03/27/21 10:40 Furosemide 40 Mg/4 Ml Vial IVPUSH Not Given DAILY [facility] Protocol Glucose 15 gm 03/24/21 07:02 Glucose Gel 15 Gm Gel..Gram. PO Q15M PRN per Hypoglycemia Standing Ord. Protocol Hydralazine HCl 75 mg 03/24/21 09:00 03/27/21 10:40 Hydralazine Hcl 25 Mg Tablet PO Not Given TID [facility] Protocol Dextrose 1,000 mls @ 50 mls/hr 03/26/21 09:00 03/27/21 05:49 D10 IVCONT 50 mls/hr .Q20H [facility] Administration Meropenem 500 mg/ Sodium 50 mls @ 100 mls/hr 03/26/21 20:00 03/27/21 08:41 Chloride IV Infused Q12H [facility] Infusion Insulin Human Lispro 0 unit 03/24/21 07:30 03/27/21 07:43 Insulin Lispro 100 Unit/Ml 3 Ml Vial SUBCUT Not Given QIDACHS [facility] Protocol Metoprolol Tartrate 50 mg 03/24/21 21:00 03/27/21 10:40 Metoprolol Tartrate 50 Mg Tablet PO Not Given BID [facility] Protocol Omeprazole 40 mg 03/25/21 06:30 03/27/21 05:49 Omeprazole 40 Mg Capsule.Dr PO Not Given DAILY@0630 [facility] Ondansetron HCl 4 mg 03/24/21 00:12 Ondansetron Hcl 4 Mg/2 Ml Vial IVPUSH Q8H PRN Nausea and Vomiting Oxybutynin Chloride 10 mg 03/24/21 09:00 03/27/21 10:41 Oxybutynin Chloride Er 5 Mg Tab.Er.24 PO Not Given DAILY [facility] Sodium Bicarbonate 1,300 mg 03/24/21 15:00 03/27/21 10:41 Sodium Bicarbonate 650 Mg Tablet PO Not Given TID [facility] Sodium Chloride 3 ml 03/24/21 00:12 03/27/21 07:41 0.9 % Sodium Chloride Flush 3 Ml Syringe IVFLUSH Not Given QSHIFT [facility] Tamsulosin HCl 0.4 mg 03/24/21 09:00 03/27/21 10:41 Tamsulosin Hcl 0.4 Mg Capsule PO Not Given DAILY [facility] <MARK Thomas - Last Filed: 03/27/21 12:01> Time Spent With Patient Time: Total time spent is greater than 50% in coordination of care (as documented) at patient's floor/unit and/or counseling patient: <MARK Thomas - Last Filed: 03/27/21 12:01> Time with patient: 15 - 24 minutes <MARK Thomas - Last Filed: 03/27/21 12:01> Progress Note: Quality Stroke Does the patient have a stroke diagnosis?: No <MARK Thomas - Last Filed: 03/27/21 12:01> Procedures Date of Service Date of Service: 03/27/21 <MARK Thomas - Last Filed: 03/27/21 12:01>
[2021-03-27 11:26] LABS: Glucose, Whole Blood 78 mg/dL (60-115)
[2021-03-27] MEDS: MannitoL 12.5 GM/50 ML VIAL IV (11:43)
--- NOTE | 2021-03-27 12:07 | HO.PM.IMPN ---
Subjective Subjective Date of Service: 03/27/21 Interval History: Patient being followed for acute on chronic kidney injury, anemia hematuria and CHF, patient is somnolent but arousable, answering questions yes and no, appears short of breath and tachypneic. Review of Systems Detail review of system difficult to obtain since patient is somnolent weak and lethargic Physical Exam Vital Signs: Vital Signs: Last Vital Signs Temp 98.1 F 03/27/21 07:33 Pulse 89 03/27/21 07:33 Resp 20 03/27/21 07:33 BP 143/77 H 03/27/21 07:33 Pulse Ox 95 03/27/21 07:33 Oxygen Flow Rate 2 03/23/21 14:58 Body Mass Index 39.6 General somnolent and lethargic Neck no JVD. CVS regular rate rhythm, Respiratory lungs clear to auscultation, tachypnea mild respiratory distress, no wheeze, no rhonchi. Gastrointestinal abdomen soft, nontender, bowel sounds audible, no guarding , no rigidity. Extremities mild edema. Neuro somnolent/unable to perform neuro exam Skin no rash Objective Data Active Medications Acetaminophen (Acetaminophen 325 Mg Tablet) 650 mg PO Q6H PRN PRN Reason: Pain, Mild (Pain Scale 1-3) Aripiprazole (Aripiprazole 10 Mg Tablet) 10 mg PO DAILY COUNTS INCLUDE 234 BEDS AT THE [facility] Last Admin: 03/27/21 10:39 Dose: Not Given Documented by: BISHOP Non-Admin Reason: NPO Ascorbic Acid (Ascorbic Acid 250 Mg Tablet) 250 mg PO BID COUNTS INCLUDE 234 BEDS AT THE [facility] Last Admin: 03/27/21 10:40 Dose: Not Given Documented by: BISHOP Non-Admin Reason: NPO Calcitriol (Calcitriol 0.25 Mcg Capsule) 0.5 mcg PO MoWeFr@0900 COUNTS INCLUDE 234 BEDS AT THE [facility] Dextrose (Dextrose 50 % 25 Gm/50 Ml Vial) 25 gm IVPUSH Q15M PRN; Protocol PRN Reason: per Hypoglycemia Standing Ord. Last Admin: 03/26/21 07:53 Dose: 25 gm Documented by: YANELI Docusate Sodium (Docusate Sodium 100 Mg Capsule) 100 mg PO DAILY PRN PRN Reason: Constipation Epoetin Momo (Epoetin Momo 20,000 Unit/Ml Vial) 20,000 unit SUBCUT Q7D COUNTS INCLUDE 234 BEDS AT THE [facility] Last Admin: 03/27/21 11:43 Dose: 20,000 unit Documented by: BISHOP Furosemide (Furosemide 40 Mg/4 Ml Vial) 40 mg IVPUSH DAILY COUNTS INCLUDE 234 BEDS AT THE [facility]; Protocol Last Admin: 03/27/21 10:40 Dose: Not Given Documented by: BISHOP Non-Admin Reason: NPO Glucose (Glucose Gel 15 Gm Gel..Gram.) 15 gm PO Q15M PRN; Protocol PRN Reason: per Hypoglycemia Standing Ord. Hydralazine HCl (Hydralazine Hcl 25 Mg Tablet) 75 mg PO TID COUNTS INCLUDE 234 BEDS AT THE [facility]; Protocol Last Admin: 03/27/21 10:40 Dose: Not Given Documented by: BISHOP Non-Admin Reason: NPO Dextrose (D10) 1,000 mls @ 50 mls/hr IVCONT .Q20H COUNTS INCLUDE 234 BEDS AT THE [facility] Last Admin: 03/27/21 05:49 Dose: 50 mls/hr Documented by: JIMMY Meropenem 500 mg/ Sodium (Chloride) 50 mls @ 100 mls/hr IV Q12H COUNTS INCLUDE 234 BEDS AT THE [facility] Last Infusion: 03/27/21 08:41 Dose: 0 mls/hr Documented by: BISHOP Insulin Human Lispro (Insulin Lispro 100 Unit/Ml 3 Ml Vial) 0 unit SUBCUT QIDACHS COUNTS INCLUDE 234 BEDS AT THE [facility]; Protocol Last Admin: 03/27/21 11:28 Dose: Not Given Documented by: BISHOP Non-Admin Reason: No Insulin Coverage Metoprolol Tartrate (Metoprolol Tartrate 50 Mg Tablet) 50 mg PO BID COUNTS INCLUDE 234 BEDS AT THE [facility]; Protocol Last Admin: 03/27/21 10:40 Dose: Not Given Documented by: BISHOP Non-Admin Reason: NPO Omeprazole (Omeprazole 40 Mg Capsule.Dr) 40 mg PO DAILY@0630 COUNTS INCLUDE 234 BEDS AT THE [facility] Last Admin: 03/27/21 05:49 Dose: Not Given Documented by: JIMMY Non-Admin Reason: NPO Ondansetron HCl (Ondansetron Hcl 4 Mg/2 Ml Vial) 4 mg IVPUSH Q8H PRN PRN Reason: Nausea and Vomiting Oxybutynin Chloride (Oxybutynin Chloride Er 5 Mg Tab.Er.24) 10 mg PO DAILY COUNTS INCLUDE 234 BEDS AT THE [facility] Last Admin: 03/27/21 10:41 Dose: Not Given Documented by: BISHOP Non-Admin Reason: NPO Sodium Bicarbonate (Sodium Bicarbonate 650 Mg Tablet) 1,300 mg PO TID COUNTS INCLUDE 234 BEDS AT THE [facility] Last Admin: 03/27/21 10:41 Dose: Not Given Documented by: BISHOP Non-Admin Reason: NPO Sodium Chloride (0.9 % Sodium Chloride Flush 3 Ml Syringe) 3 ml IVFLUSH QSHIFT COUNTS INCLUDE 234 BEDS AT THE [facility] Last Admin: 03/27/21 07:41 Dose: Not Given Documented by: BISHOP Non-Admin Reason: IV Running Tamsulosin HCl (Tamsulosin Hcl 0.4 Mg Capsule) 0.4 mg PO DAILY COUNTS INCLUDE 234 BEDS AT THE [facility] Last Admin: 03/27/21 10:41 Dose: Not Given Documented by: BISHOP Non-Admin Reason: NPO Labs CBC & Chem 7: 03/27/21 06:07 03/27/21 06:07 Labs: Laboratory Results - last 24 hr 03/25/21 03/26/21 03/26/21 06:44 16:22 20:19 MCV MCH MCHC RDW Plt Count MPV Absolute Nucleated RBC Nucleated RBC % (auto) Anion Gap Estim Creat Clear Calc Estimated GFR POC Glucose 71 87 Random Glucose Calcium Phosphorus Iron TIBC % Saturation Unsat Iron Binding Ferritin B-Natriuretic Peptide Complement C3 110 Complement C4 20 03/27/21 03/27/21 03/27/21 06:07 06:07 06:07 MCV 94.7 MCH 28.9 MCHC 30.5 L RDW 20.8 H Plt Count 162 MPV 9.8 Absolute Nucleated RBC 0.000 Nucleated RBC % (auto) 0.0 Anion Gap 20 Estim Creat Clear Calc 14.7 Estimated GFR 10 POC Glucose Random Glucose 82 D Calcium 6.7 L Phosphorus 12.1 H Iron 44 L TIBC 230 % Saturation 19 Unsat Iron Binding 186 Ferritin 168 B-Natriuretic Peptide 500 H Complement C3 Complement C4 03/27/21 03/27/21 07:07 11:17 MCV MCH MCHC RDW Plt Count MPV Absolute Nucleated RBC Nucleated RBC % (auto) Anion Gap Estim Creat Clear Calc Estimated GFR POC Glucose 91 78 Random Glucose Calcium Phosphorus Iron TIBC % Saturation Unsat Iron Binding Ferritin B-Natriuretic Peptide Complement C3 Complement C4 Microbiology Microbiology Results: Microbiology 03/25/21 20:35 Blood Culture - Preliminary Blood - Venous No growth after 24 hours. 03/25/21 20:30 Blood Culture - Preliminary Blood - Venous No growth after 24 hours. Assessment and Plan (1) Afib: Status: Acute (2) Metabolic encephalopathy: Status: Acute (3) Wernickes encephalopathy: Status: Acute (4) High anion gap metabolic acidosis: Status: Acute (5) Normocytic anemia: Status: Acute (6) Acute kidney injury superimposed on CKD: Status: Acute (7) Acute UTI: Status: Acute Assessment and Plan: 70-year-old male with past medical history as mentioned above who presents hospital with edema and shortness of breath per report from alf # Metabolic encephalopathy Multifactorial mainly you to uremia, HX Wernicke's encephalopathy, UTI s/p Perma catheter placement yesterday case discussed with she will order hemodialysis today Seen by speech therapy they recommend ground solids thin liquids and pills crushed in pureed with aspiration precautions # hypothermia 2/2 UTI Urine culture growing E coli ESBL positive s/p ceftriaxone now on iv meropenem ID recommends IV ertapenem for 14 day antibiotics on discharge. # acute hypoxic respiratory failure likely secondary CHF exacerbation CXR showed pulmonary congestion, likely due to worsening renal function, reviewed cardiology note patient has low normal EF with right ventricular dysfunction On IV Lasix to 40 daily and metoprolol 50 mg b.i.d. Will DC IV Lasix since initiated on hemodialysis # MICHA on CKD Due to worsening uremia and encephalopathy, patient will be started on hemodialysis today follow renal function check phosphorous level Will add calcitriol as per Nephro recommendation and procrit. # high anion gap metabolic acidosis Secondary to Micha continue sodium bicarb p.o. Follow BMP # GI bleed/ normocytic anemia positive occult stool, no overt bleeding noticed, status post 1 unit of packed RBC,hct dropped to 24.9 will hold transfusion and initiate Procrit follow CBC Seen by Dr. Sin she recommend to hold intervention at this time Will add Procrit [id number] unit Q weekly, check iron studies/George # Hematuria Resolved, likely after removing the Wooten catheter by patient Waiting on urology evaluation Monitor with bladder scan # diabetes/hypoglycemia Blood sugars low normal this a.m.,hold oral antihyperglycemics, since had episode of hypoglycemia likely due to acute renal failure sliding scale insulin/diabetic diet Will DC IV fluids # hypertension stable blood pressure continue home antihypertensives DVT prophylaxis SCDs in the setting of anemia with positive stool occult Quality Stroke Does the patient have a stroke diagnosis?: No VTE Prior VTE?: No VTE Risk Level:: Medical - moderate - high VTE Device Contraindication: N/A - Device Ordered VTE Drug Contraindication: Treatment Not Indicated
[2021-03-27 14:36] LABS: Myeloperoxidase Antibody <1.0 AI; Proteinase 3 PR3 Antibodies <1.0 AI
[2021-03-27 16:18] LABS: Glucose, Whole Blood 99 mg/dL (60-115)
[2021-03-27] MEDS: Sodium Bicarbonate 650 MG TABLET 1300 MG PO ×2 (16:37→21:39)
[2021-03-27] MEDS: hydrALAZINE HCl 25 MG TABLET 75 MG PO ×2 (16:37→21:39)
[2021-03-27] MEDS: 0.9 % Sodium Chloride Flush 3 ML SYRINGE IVFLUSH (16:38)
--- NOTE | 2021-03-27 19:01 | PM.EVENT ---
Event Note Date of Service: 03/27/21 Event Note: Rapid response called when RN noted on rounds that pt had pulled out his Permcath out of his R neck and was bleeding from the entry wound. He had last been seen at 17:30 and had been dialyzed earlier today. There was extensive blood on his body and soaking into his sheets. Despite this, his BP and HR were normal. Pressure was immediately applied and I contacted Dr Amato. He recommended pressure dressing with gauze and elastic tape and sandbag. The bleeding stopped readily. The patient denied lightheadness or dyspnea, though is encephalopathic. Pt has large lipoma vs hematoma on posterior triangle of R side of neck but per RN this was present prior to the Permacath placement. Plan: - stat T+S and H+H, transfuse if Hb <7, repeat H+H in 4 hr and in am Wiill sign out to ob gyn physician assistant. Dr Amato aware and will come in if any decompesnation/uncontrolled bleeding.
[2021-03-27 19:02] LABS: Hematocrit 22.8 % (42-52)
--- NOTE | 2021-03-27 19:23 | PC.NURSE ---
Around 1830, pt found in pool of blood, permacath from R IJ pulled out. Rapid response called. Bleeding controlled with pressure/sand bag; vitals stable, pt denies dizziness. Stat H+H ordered. Will pass to oncoming RN.
[2021-03-27 20:15] LABS: Glucose, Whole Blood 112 mg/dL (60-115)
[2021-03-27] MEDS: Ascorbic Acid 250 MG TABLET PO (21:39)
[2021-03-27] MEDS: Metoprolol Tartrate 50 MG TABLET PO (21:40)
[2021-03-27 21:57] LABS: IgA 574 mg/dL (70-320); IgG 1772 mg/dL (600-1540); IgM 70 mg/dL (50-300)
[2021-03-27 22:44] LABS: Hemoglobin 7.7 g/dl (14.0-18.0)
[2021-03-28] VITALS (12 sets, daily range): BP systolic 115–152; BP diastolic 63–90; PULSE 67–88; RESP 18–25; TEMP 36.2–36.6; O2SAT 91–95
[2021-03-28] MEDS: Dextrose 10 % 1,000 ML 50 ML IVCONT (03:00)
[2021-03-28] MEDS: Omeprazole 40 MG CAPSULE.DR PO (05:43)
[2021-03-28 07:10] LABS: Hematocrit 27.1 % (42-52); Hemoglobin 8.5 g/dl (14.0-18.0); Mean Corpuscular HGB Conc 31.4 g/dl (31.0-36.0); Mean Corpuscular Hemoglobin 29.9 pg (27.0-33.0); Mean Corpuscular Volume 95.4 fL (80-98); NRBC Pct Auto 0.3 /100WBC (0.0-0.2); Platelet Count 160 X10*3/uL (160-400); Red Blood Count 2.84 X10*6/uL (4.60-5.80); Red Cell Distribution Width 18.9 % (11.0-16.0); White Blood Count 7.6 X10*3/uL (4.8-10.8)
[2021-03-28 07:37] LABS: Glucose, Whole Blood 91 mg/dL (60-115)
[2021-03-28 07:59] LABS: Anion Gap 19 (12-20); Calcium 6.7 mg/dL (8.4-10.2); Carbon Dioxide 17 mmol/L (22-29); Chloride 107 mmol/L (96-108); Glucose Random 102 mg/dL (60-115); Potassium 4.1 mmol/L (3.3-5.1); Sodium 139 mmol/L (135-145)
[2021-03-28 08:16] LABS: HBc Num1 0.12 S/CO (0.00-0.79); HBsAGNum1 0.17 S/CO (0.00-0.99); Hepatitis B Core Antibody Nonreactive (Nonreactive); Hepatitis B Surface Antigen Negative (Negative); ~Hepatitis B Surface Antibody NONREACTIVE (Nonreactive)
[2021-03-28 08:34] LABS: Blood Urea Nitrogen 85 mg/dL (9-16); Creatinine Clr Calc Pharmacy 18.4; Estimated Glomerular Filt Rate 12
[2021-03-28] MEDS: Furosemide 40 MG/4 ML VIAL IVPUSH (09:32)
[2021-03-28] MEDS: Sodium Bicarbonate 650 MG TABLET 1300 MG PO ×3 (09:32→19:58)
[2021-03-28] MEDS: Metoprolol Tartrate 50 MG TABLET PO ×2 (09:32→19:58)
[2021-03-28] MEDS: calcitrioL 0.25 MCG CAPSULE 0.5 MCG PO (09:32)
[2021-03-28] MEDS: ARIPiprazole 10 MG TABLET PO (09:33)
[2021-03-28] MEDS: Ascorbic Acid 250 MG TABLET PO ×2 (09:33→19:58)
[2021-03-28] MEDS: Tamsulosin HCL 0.4 MG CAPSULE PO (09:33)
[2021-03-28] MEDS: hydrALAZINE HCl 25 MG TABLET 75 MG PO ×3 (09:33→19:58)
--- NOTE | 2021-03-28 09:57 | MHC.SL.DTX ---
Pre-Treatment Diet: NDD2 Ground solids/thin liquids, medications crushed in puree, aspiration precautions, 1:1 assist with all PO intake Subjective: Changes made to current diet?: No Dysphasia Diet Status: Continue with previously recommended diet consistency (GROUND/MECH ALTERED (NDD2) solids and THIN liquids, with pills CRUSHED in PUREE). Liquid Consistency and Strategies: Liquid Intake Recommendation: Thin Compensatory Strategies for Safe Swallow: Small Sips No Straws Compensatory Strategies for Safe Swallow: Sitting Upright (90 deg) Small Bites and Sips Alternate Liquids/Solids Oral Check Solid Food Consistency: Dietary Recommendations: Grnd/Mech Altered (NDD2) Additional Modifications to Solids: Recommend GROUND/MECH ALTERED (NDD2) solids and THIN liquids, with pills CRUSHED in PUREE. Patient is edentulous. Recommend food to be moistened and softened with sauce/gravy. Recommend oral cavity check to ensure clearance and strategies to promote oral clearance: small bites, alternate bite of food with sip of liquid. Patient requires total 1:1 assistance feeding. Recommend aspiration precautions. Oral Medication Intake: Crushed with Puree Strategies and Precautions to be Taken for Safe Swallow: Compensatory Swallowing Status: Sitting Upright (90 deg) Small Bites and Sips Alternate Liquids/Solids Oral Check Supervision While Eating and/Drinking: Total Assistance Foods to Avoid: Avoid tough, hard, and sticky foods. Swallowing Recommended Treatments: Compens. Strategy Educat. Level of Impact on: Daily activities: Severe Interpersonal interactions: Severe Community: Severe Prognosis for Improvement: Fair Recommendation for Speech: Inpatient Speech Therapy Additional Comments: Treatment: Pt was seen for dysphagia treatment in his room. He was found reclined in bed with an opened milk carton in his hand upon this clinician's arrival. Pt had his breakfast tray at his bedside, untouched. Pt was re-positioned upright for safe PO intake. Pt demonstrated a wet, non-productive cough prior to any PO intake; ? of aspiration as pt was suspected to have drank liquids while laying in bed. Pt demonstrated improved cognition this date, as he was oriented to self and his location and verbalized appropriately throughout the session. Pt tolerated pureed and ground solids presented by this [employer] for which a slow, but functional oral phase was observed. A munching/mashing pattern of mastication was noted secondary to pt's lack of dentition. Pt demonstrated min, scattered oral residue post swallow of scrambled eggs, requiring use of a liquid wash to clear. Improved oral clearance was observed with more cohesive, moist boluses, i.e. ground pancakes with syrup. No overt s/s aspiration were noted with pureed and ground solids or thin liquids presented via clinician controlled cup sip. Updated with RN who arrived to administer medications at the end of pt's session. RN was notified that pt had not eaten breakfast and was found with a half empty milk carton in his hand while laying down in bed. Continue with current diet consistency of NDD2 ground/mechanically altered solids, thin liquids, medications crushed in puree, aspiration precautions, and 1:1 assist with all PO intake. [employer] will continue to follow pt. Assessment: Manager Wound Care Clinican/Clinical Fellow: No Supervisory Statement: I have reviewed and agree with the student/clinical fellow's documentation: N/A Speech Language Pathologist: Nia Pulido M.A., [facility]
--- NOTE | 2021-03-28 10:36 | P.PNNP_ITS ---
Subjective Subjective Date of Service: 03/28/21 Principal diagnosis: sob, anemia, hematuria, ARF on CKD, CHF Interval history: Pt removed his IJ catheter last night with significant associated bleeding, drop in H/H and need for transfusion He is much more alert and awake today. Had two hrs HD yesterday Physical Exam Vital Signs: Vital Signs: Last Vital Signs Temp 97.4 F 03/28/21 08:00 Pulse 88 03/28/21 09:33 Resp 25 H 03/28/21 08:00 BP 152/90 H 03/28/21 09:33 Pulse Ox 95 03/28/21 08:00 Oxygen Flow Rate 2 03/23/21 14:58 Body Mass Index 39.6 Const: Other: Awake, comfortable, smiling General: cooperative and no acute distress Neck: Other: supple Resp: Auscultation: clear to auscultation bilaterally Cardio: Jugular venous distension: no JVD Rate: regular rate Rhythm: regular rhythm Heart sounds: S1 normal heart sound present GI: Other: belly breathing Objective Data Labs CBC & Chem 7: 03/28/21 06:49 03/28/21 06:49 Labs: Laboratory Results - last 24 hr 03/25/21 03/25/21 03/27/21 06:44 06:45 06:07 WBC RBC Hgb Hct MCV MCH MCHC RDW Plt Count MPV Absolute Nucleated RBC Nucleated RBC % (auto) Sodium Potassium Chloride Carbon Dioxide Anion Gap BUN Creatinine Estim Creat Clear Calc Estimated GFR POC Glucose Random Glucose Calcium Ferritin 168 IgG Total 1772 H IgA Total 574 H IgM 70 JULIA Interpretation SEE NOTE Proteinase 3 (PR3) Ab <1.0 Myeloperoxidase Ab <1.0 Hep Bs Antigen Hep Bs Antibody Hep B Core Total Ab Blood Type Antibody Screen Crossmatch 03/27/21 03/27/21 03/27/21 11:17 12:30 16:08 WBC RBC Hgb Hct MCV MCH MCHC RDW Plt Count MPV Absolute Nucleated RBC Nucleated RBC % (auto) Sodium Potassium Chloride Carbon Dioxide Anion Gap BUN Creatinine Estim Creat Clear Calc Estimated GFR POC Glucose 78 99 Random Glucose Calcium Ferritin IgG Total IgA Total IgM JULIA Interpretation Proteinase 3 (PR3) Ab Myeloperoxidase Ab Hep Bs Antigen Negative Hep Bs Antibody NONREACTIVE Hep B Core Total Ab Nonreactive Blood Type Antibody Screen Crossmatch 03/27/21 03/27/21 03/27/21 18:53 18:54 20:05 WBC RBC Hgb 7.0 L* Hct 22.8 L MCV MCH MCHC RDW Plt Count MPV Absolute Nucleated RBC Nucleated RBC % (auto) Sodium Potassium Chloride Carbon Dioxide Anion Gap BUN Creatinine Estim Creat Clear Calc Estimated GFR POC Glucose 112 Random Glucose Calcium Ferritin IgG Total IgA Total IgM JULIA Interpretation Proteinase 3 (PR3) Ab Myeloperoxidase Ab Hep Bs Antigen Hep Bs Antibody Hep B Core Total Ab Blood Type O Positive Antibody Screen NEGATIVE Crossmatch See Detail 03/27/21 03/28/21 03/28/21 22:35 06:49 06:49 WBC 7.6 RBC 2.84 L Hgb 7.7 L 8.5 L Hct 24.0 L 27.1 L MCV 95.4 MCH 29.9 MCHC 31.4 RDW 18.9 H Plt Count 160 MPV 9.0 L Absolute Nucleated RBC 0.020 H Nucleated RBC % (auto) 0.3 H Sodium 139 Potassium 4.1 Chloride 107 Carbon Dioxide 17 L Anion Gap 19 BUN 85 H* D Creatinine 4.73 H* Estim Creat Clear Calc 18.4 Estimated GFR 12 POC Glucose Random Glucose 102 Calcium 6.7 L Ferritin IgG Total IgA Total IgM JULIA Interpretation Proteinase 3 (PR3) Ab Myeloperoxidase Ab Hep Bs Antigen Hep Bs Antibody Hep B Core Total Ab Blood Type Antibody Screen Crossmatch 03/28/21 07:25 WBC RBC Hgb Hct MCV MCH MCHC RDW Plt Count MPV Absolute Nucleated RBC Nucleated RBC % (auto) Sodium Potassium Chloride Carbon Dioxide Anion Gap BUN Creatinine Estim Creat Clear Calc Estimated GFR POC Glucose 91 Random Glucose Calcium Ferritin IgG Total IgA Total IgM JULIA Interpretation Proteinase 3 (PR3) Ab Myeloperoxidase Ab Hep Bs Antigen Hep Bs Antibody Hep B Core Total Ab Blood Type Antibody Screen Crossmatch Microbiology Microbiology Results: Microbiology 03/25/21 20:30 Blood - Venous Blood Culture - Preliminary No growth after 48 hours. 03/25/21 20:35 Blood - Venous Blood Culture - Preliminary No growth after 48 hours. 03/23/21 15:30 Blood - Venous Blood Culture - Preliminary No growth after 48 hours. 03/23/21 15:30 Blood - Venous Blood Culture - Preliminary No growth after 48 hours. 03/23/21 16:01 Urine clean catch - Urine streeter top Urine Culture - Final Escherichia coli Procedures Date of Service Date of Service: 09/17/21 Assessment & Plan Assessment and plan (1) Acute kidney injury superimposed on CKD: Status: Acute Assessment and Plan: Worsening renal function in pt with advanced CKD stage 5 underlying. Serologic workup shows high IgG and IgA, awaiting immunofixation We initated dialysis yesterday for obtundation; he is much more alert today; he has underlying wernicke's as well. Unfortunately, he pulled out his makurkur. therefore I will hold off dialysis today as there is no absolute indication. 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
[2021-03-28 11:31] LABS: Glucose, Whole Blood 118 mg/dL (60-115)
--- NOTE | 2021-03-28 11:50 | PC.NURSE ---
Skin assessment completed today. Patient pulled his HD port out from right neck, pressure dressing applied opening is closed. Also, has small abrasion to right neck scabbed. He has hemosiderin staining to bilateral extremities with scabs. Bruising to bilateral arms. No other skin issues at this time.
[2021-03-28 12:12] LABS: Calcium (PTHI) 7.3 mg/dL (8.6-10.3); PTHI 363 pg/mL (14-64)
--- NOTE | 2021-03-28 12:29 | MHC.CM.PN ---
per multi dis rounds pt to have reinsertion of perma cath today pt to return to care one of [facility] when medically stable
--- NOTE | 2021-03-28 12:45 | HO.PM.IMPN ---
Subjective Subjective Date of Service: 03/28/21 Interval History: presente with SOB currently not reporting any symptoms, but confused and unreliable historian last evening pulled temporary HD catheter from right IJ, had estimated 1L blood loss, given 2 units prbc, bleeding controlled, VSS Cardiovascular Cardiovascular: Reports no additional cardiovascular complaints Respiratory Respiratory: Reports no additional respiratory complaints Physical Exam Vital Signs: Vital Signs: Last Vital Signs Temp 97.3 F 03/28/21 11:33 Pulse 67 03/28/21 11:33 Resp 24 H 03/28/21 11:33 BP 120/69 03/28/21 11:33 Pulse Ox 93 03/28/21 11:33 Oxygen Flow Rate 2 03/23/21 14:58 Body Mass Index 39.6 General: lethargic, oriented to person and place, no acute distress Resp: Crackles bilateral, no accessory muscles used, shallow breathing CVS: S1,S2,RRR GI: soft, non tender, non distended Neuro: motor grossly intact, lethargic Psych: appropriate affect, no longer aggressive, impaired insight Objective Data Active Medications Acetaminophen (Acetaminophen 325 Mg Tablet) 650 mg PO Q6H PRN PRN Reason: Pain, Mild (Pain Scale 1-3) Aripiprazole (Aripiprazole 10 Mg Tablet) 10 mg PO DAILY [facility] Last Admin: 03/28/21 09:33 Dose: 10 mg Documented by: BISHOP Ascorbic Acid (Ascorbic Acid 250 Mg Tablet) 250 mg PO BID [facility] Last Admin: 03/28/21 09:33 Dose: 250 mg Documented by: BISHOP Calcitriol (Calcitriol 0.25 Mcg Capsule) 0.5 mcg PO MoWeFr@0900 [facility] Last Admin: 03/28/21 09:32 Dose: 0.5 mcg Documented by: BISHOP Dextrose (Dextrose 50 % 25 Gm/50 Ml Vial) 25 gm IVPUSH Q15M PRN; Protocol PRN Reason: per Hypoglycemia Standing Ord. Last Admin: 03/26/21 07:53 Dose: 25 gm Documented by: YANELI Docusate Sodium (Docusate Sodium 100 Mg Capsule) 100 mg PO DAILY PRN PRN Reason: Constipation Epoetin Momo (Epoetin Momo 20,000 Unit/Ml Vial) 20,000 unit SUBCUT Q7D [facility] Last Admin: 03/27/21 11:43 Dose: 20,000 unit Documented by: BISHOP Furosemide (Furosemide 40 Mg/4 Ml Vial) 40 mg IVPUSH DAILY [facility]; Protocol Last Admin: 03/28/21 09:32 Dose: 40 mg Documented by: BISHOP Glucose (Glucose Gel 15 Gm Gel..Gram.) 15 gm PO Q15M PRN; Protocol PRN Reason: per Hypoglycemia Standing Ord. Hydralazine HCl (Hydralazine Hcl 25 Mg Tablet) 75 mg PO TID [facility]; Protocol Last Admin: 03/28/21 09:33 Dose: 75 mg Documented by: BISHOP Meropenem 500 mg/ Sodium (Chloride) 50 mls @ 100 mls/hr IV Q12H [facility] Last Infusion: 03/28/21 10:08 Dose: 0 mls/hr Documented by: BISHOP Insulin Human Lispro (Insulin Lispro 100 Unit/Ml 3 Ml Vial) 0 unit SUBCUT QIDACHS [facility]; Protocol Last Admin: 03/28/21 11:33 Dose: Not Given Documented by: BISHOP Non-Admin Reason: No Insulin Coverage Metoprolol Tartrate (Metoprolol Tartrate 50 Mg Tablet) 50 mg PO BID [facility]; Protocol Last Admin: 03/28/21 09:32 Dose: 50 mg Documented by: BISHOP Omeprazole (Omeprazole 40 Mg Capsule.Dr) 40 mg PO DAILY@0630 [facility] Last Admin: 03/28/21 05:43 Dose: 40 mg Documented by: SHANON Ondansetron HCl (Ondansetron Hcl 4 Mg/2 Ml Vial) 4 mg IVPUSH Q8H PRN PRN Reason: Nausea and Vomiting Oxybutynin Chloride (Oxybutynin Chloride Er 5 Mg Tab.Er.24) 10 mg PO DAILY [facility] Last Admin: 03/28/21 09:33 Dose: 10 mg Documented by: BISHOP Sodium Bicarbonate (Sodium Bicarbonate 650 Mg Tablet) 1,300 mg PO TID [facility] Last Admin: 03/28/21 09:32 Dose: 1,300 mg Documented by: BISHOP Sodium Chloride (0.9 % Sodium Chloride Flush 3 Ml Syringe) 3 ml IVFLUSH QSHIFT [facility] Last Admin: 03/28/21 07:38 Dose: Not Given Documented by: BISHOP Non-Admin Reason: IV Running Tamsulosin HCl (Tamsulosin Hcl 0.4 Mg Capsule) 0.4 mg PO DAILY [facility] Last Admin: 03/28/21 09:33 Dose: 0.4 mg Documented by: BISHOP Labs CBC & Chem 7: 03/28/21 06:49 03/28/21 06:49 Labs: Laboratory Results - last 24 hr 03/25/21 03/25/21 03/25/21 06:44 06:44 06:45 MCV MCH MCHC RDW Plt Count MPV Absolute Nucleated RBC Nucleated RBC % (auto) Anion Gap Estim Creat Clear Calc Estimated GFR POC Glucose Random Glucose Calcium PTH Intact 363 H Calcium (PTH Intact) 7.3 L IgG Total 1772 H IgA Total 574 H IgM 70 JULIA Interpretation SEE NOTE Proteinase 3 (PR3) Ab <1.0 Myeloperoxidase Ab <1.0 Hep Bs Antigen Hep Bs Antibody Hep B Core Total Ab Blood Type Antibody Screen Crossmatch 03/27/21 03/27/21 03/27/21 12:30 16:08 18:54 MCV MCH MCHC RDW Plt Count MPV Absolute Nucleated RBC Nucleated RBC % (auto) Anion Gap Estim Creat Clear Calc Estimated GFR POC Glucose 99 Random Glucose Calcium PTH Intact Calcium (PTH Intact) IgG Total IgA Total IgM JULIA Interpretation Proteinase 3 (PR3) Ab Myeloperoxidase Ab Hep Bs Antigen Negative Hep Bs Antibody NONREACTIVE Hep B Core Total Ab Nonreactive Blood Type O Positive Antibody Screen NEGATIVE Crossmatch See Detail 03/27/21 03/28/21 03/28/21 20:05 06:49 06:49 MCV 95.4 MCH 29.9 MCHC 31.4 RDW 18.9 H Plt Count 160 MPV 9.0 L Absolute Nucleated RBC 0.020 H Nucleated RBC % (auto) 0.3 H Anion Gap 19 Estim Creat Clear Calc 18.4 Estimated GFR 12 POC Glucose 112 Random Glucose 102 Calcium 6.7 L PTH Intact Calcium (PTH Intact) IgG Total IgA Total IgM JULIA Interpretation Proteinase 3 (PR3) Ab Myeloperoxidase Ab Hep Bs Antigen Hep Bs Antibody Hep B Core Total Ab Blood Type Antibody Screen Crossmatch 03/28/21 03/28/21 07:25 11:28 MCV MCH MCHC RDW Plt Count MPV Absolute Nucleated RBC Nucleated RBC % (auto) Anion Gap Estim Creat Clear Calc Estimated GFR POC Glucose 91 118 H Random Glucose Calcium PTH Intact Calcium (PTH Intact) IgG Total IgA Total IgM JULIA Interpretation Proteinase 3 (PR3) Ab Myeloperoxidase Ab Hep Bs Antigen Hep Bs Antibody Hep B Core Total Ab Blood Type Antibody Screen Crossmatch Microbiology Microbiology Results: Microbiology 03/25/21 20:30 Blood Culture - Preliminary Blood - Venous No growth after 48 hours. 03/25/21 20:35 Blood Culture - Preliminary Blood - Venous No growth after 48 hours. Assessment and Plan (1) Metabolic encephalopathy: Status: Acute (2) Wernickes encephalopathy: Status: Acute (3) High anion gap metabolic acidosis: Status: Acute (4) CHF exacerbation: Status: Acute (5) Acute kidney injury superimposed on CKD: Status: Acute (6) Acute respiratory failure with hypoxia: Status: Acute Assessment and Plan: 70-year-old male with past medical history as mentioned above who presents hospital with edema and shortness of breath per report from skilled nursing Metabolic encephalopathy Multifactorial mainly due to uremia, HX Wernicke's encephalopathy, UTI s/p Perma catheter placement 03/26, underwent HD 03/27 patient had worsening delerium and pulled out catheter evening of 03/27, had estimated 1L blood loss, given 2 units prbc, bleeding stopped. plan to replace temporary catheter, continue HD Seen by speech therapy they recommend ground solids thin liquids and pills crushed in pureed with aspiration precautions hypothermia 2/2 UTI Urine culture growing E coli ESBL positive s/p ceftriaxone now on iv meropenem day 3 ID recommends IV ertapenem to complete total 14 day antibiotics on discharge. 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 On IV Lasix to 40 daily and metoprolol 50 mg b.i.d. continue hemodialysis MICHA on CKD started on HD plan to replace catheter as above, unclear if he will require terminal carman HD at this time, conitnue rocaltrol, procrit neprho following high anion gap metabolic acidosis Secondary to Micha continue sodium bicarb p.o. Follow BMP GI bleed/ normocytic anemia positive occult stool, no overt bleeding noticed, status post 1 unit of packed RBC Seen by Dr. Sin she recommend to hold intervention at this time Procrit 10430 unit Q weekly likely mostly due to renal disease continue to monitor Hematuria Resolved diabetes Blood sugars low normal sliding scale insulin/diabetic diet Will DC D10 hypertension hydralazine, lopressor DVT prophylaxis SCDs in the setting of anemia with positive stool occult Quality Stroke Does the patient have a stroke diagnosis?: No VTE Prior VTE?: No VTE Risk Level:: Medical - moderate - high VTE Device Contraindication: N/A - Device Ordered VTE Drug Contraindication: Treatment Not Tolerated
--- NOTE | 2021-03-28 13:57 | P.CNUR_ITS ---
History of Present Illness Consult details Consult date: 03/27/21 Narrative: Asked to see patient for episode of hematuria Had been admitted metabolic encephalopathy Wooten catheter placed for acute on chronic kidney injury Patient had removed Wooten catheter At this point in time new catheter in place. Minimal hematuria. Continue with current management Review of Systems Constitutional: Constitutional: Denies chills and Denies fever(s) Cardiovascular: Cardiovascular: Reports no additional cardiovascular complaints and Denies syncope Respiratory: Respiratory: Denies cough Gastrointestinal: Gastrointestinal: Denies abdominal pain and Denies heartburn Genitourinary: Genitourinary: Reports as per HPI and Denies change in libido Neurologic: Denies syncope Psychiatric: Psychiatric: Denies change in libido Endocrine: Endocrine: Denies change in libido [facility] Past Medical History Medical History (Updated 03/28/21 @ 13:59 by Miguel Urias MD) Acute kidney failure Afib 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 BPH (benign prostatic hyperplasia) Cardiomegaly Chronic kidney disease HTN (hypertension) Myocardial infarction Old myocardial infarction Systolic heart failure Type 2 diabetes mellitus Unspecified convulsions Unspecified sequelae of cerebral infarction Wernickes encephalopathy Family History Family history: reviewed and not pertinent Social History Social History Household Members: None Housing: [facility] Housing Other:: [facility] Do you presently have visiting nurse or other home services: No Patient Tobacco Use Status: Tobacco use Unknown service: No Current occupational status: disabled Meds Allergies Allergy/AdvReac Type Severity Reaction Status Date / Time haloperidol [From HALDOL] Allergy Unknown UNKNOWN Verified 03/23/21 14:58 penicillin V Allergy Unknown Unknown Verified 03/23/21 14:58 Penicillins [PENICILLINS] Allergy Unknown UNKNOWN Verified 03/23/21 14:58 Active Medications: Current Medications Acetaminophen (Acetaminophen 325 Mg Tablet) 650 mg PO Q6H PRN PRN Reason: Pain, Mild (Pain Scale 1-3) Aripiprazole (Aripiprazole 10 Mg Tablet) 10 mg PO DAILY [facility] Last Admin: 03/28/21 09:33 Dose: 10 mg Documented by: Ascorbic Acid (Ascorbic Acid 250 Mg Tablet) 250 mg PO BID [facility] Last Admin: 03/28/21 09:33 Dose: 250 mg Documented by: Calcitriol (Calcitriol 0.25 Mcg Capsule) 0.5 mcg PO MoWeFr@0900 [facility] Last Admin: 03/28/21 09:32 Dose: 0.5 mcg Documented by: Dextrose (Dextrose 50 % 25 Gm/50 Ml Vial) 25 gm IVPUSH Q15M PRN; Protocol PRN Reason: per Hypoglycemia Standing Ord. Last Admin: 03/26/21 07:53 Dose: 25 gm Documented by: Docusate Sodium (Docusate Sodium 100 Mg Capsule) 100 mg PO DAILY PRN PRN Reason: Constipation Epoetin Momo (Epoetin Momo 20,000 Unit/Ml Vial) 20,000 unit SUBCUT Q7D [facility] Last Admin: 03/27/21 11:43 Dose: 20,000 unit Documented by: Furosemide (Furosemide 40 Mg/4 Ml Vial) 40 mg IVPUSH DAILY [facility]; Protocol Last Admin: 03/28/21 09:32 Dose: 40 mg Documented by: Glucose (Glucose Gel 15 Gm Gel..Gram.) 15 gm PO Q15M PRN; Protocol PRN Reason: per Hypoglycemia Standing Ord. Hydralazine HCl (Hydralazine Hcl 25 Mg Tablet) 75 mg PO TID [facility]; Protocol Last Admin: 03/28/21 09:33 Dose: 75 mg Documented by: Meropenem 500 mg/ Sodium (Chloride) 50 mls @ 100 mls/hr IV Q12H [facility] Last Infusion: 03/28/21 10:08 Dose: Infused Documented by: Insulin Human Lispro (Insulin Lispro 100 Unit/Ml 3 Ml Vial) 0 unit SUBCUT QIDACHS [facility]; Protocol Last Admin: 03/28/21 11:33 Dose: Not Given Documented by: Metoprolol Tartrate (Metoprolol Tartrate 50 Mg Tablet) 50 mg PO BID [facility]; Protocol Last Admin: 03/28/21 09:32 Dose: 50 mg Documented by: Omeprazole (Omeprazole 40 Mg Capsule.) 40 mg PO DAILY@0630 [facility] Last Admin: 03/28/21 05:43 Dose: 40 mg Documented by: Ondansetron HCl (Ondansetron Hcl 4 Mg/2 Ml Vial) 4 mg IVPUSH Q8H PRN PRN Reason: Nausea and Vomiting Oxybutynin Chloride (Oxybutynin Chloride Er 5 Mg Tab.Er.24) 10 mg PO DAILY [facility] Last Admin: 03/28/21 09:33 Dose: 10 mg Documented by: Sodium Bicarbonate (Sodium Bicarbonate 650 Mg Tablet) 1,300 mg PO TID [facility] Last Admin: 03/28/21 09:32 Dose: 1,300 mg Documented by: Sodium Chloride (0.9 % Sodium Chloride Flush 3 Ml Syringe) 3 ml IVFLUSH QSHIFT [facility] Last Admin: 03/28/21 07:38 Dose: Not Given Documented by: Tamsulosin HCl (Tamsulosin Hcl 0.4 Mg Capsule) 0.4 mg PO DAILY [facility] Last Admin: 03/28/21 09:33 Dose: 0.4 mg Documented by: Home Medications Medication Instructions Recorded Confirmed Last Taken Type aripiprazole 10 mg tablet 1 tab PO DAILY 12/15/20 03/23/21 Unknown History dapagliflozin 5 mg tablet (Farxiga) 1 tab PO DAILY 12/15/20 03/23/21 Unknown History gemfibrozil 600 mg tablet 1 tab PO BID 12/15/20 03/23/21 Unknown History insulin lispro 100 unit/mL unit SUBCUT TIDAC 12/15/20 Unknown History subcutaneous pen (Humalog KwikPen (U-100) Insulin) metoprolol tartrate 100 mg tablet 1 tab PO BID 12/15/20 03/23/21 Unknown History oxybutynin chloride 5 mg tablet 10 mg PO BID 12/15/20 03/23/21 Unknown History tamsulosin 0.4 mg capsule 1 cap PO DAILY 12/15/20 03/23/21 Unknown History amlodipine 10 mg tablet 10 mg PO DAILY 03/11/21 03/23/21 Unknown History ascorbic acid (vitamin C) 250 mg 250 mg PO BID 03/23/21 03/23/21 Unknown History tablet (Vitamin C) doxycycline hyclate 100 mg capsule 1 cap PO BID 03/23/21 03/23/21 Unknown History ferrous sulfate 325 mg (65 mg 325 mg PO BID 03/23/21 03/23/21 Unknown History iron) tablet Physical Exam Vital Signs: Vital Signs: Last Vital Signs Temp 97.3 F 03/28/21 11:33 Pulse 67 03/28/21 11:33 Resp 24 H 03/28/21 11:33 BP 120/69 03/28/21 11:33 Pulse Ox 93 03/28/21 11:33 Oxygen Flow Rate 2 03/23/21 14:58 Body Mass Index 39.6 Const: General: cooperative, healthy appearing, comfortable and no acute distress Orientation/consciousness: patient oriented x3 HENMT: Face and sinus: Yes normal facial exam Mouth: moist mucous membranes Neck: Neck: Yes normal visual inspection, Yes full ROM and Yes trachea midline Chest: Chest palpation & inspection: normal inspection of the chest Resp: Effort & Inspection: normal respiratory effort, able to speak in complete sentences and no respiratory distress GI: Inspection: Yes normal to inspection Back/Spine/Pelvis: Cervical Spine: normal cervical lordosis Thoracic/Lumbar Spine: thoracic and lumbar spine normal to inspection Skin: General skin exam: no rashes or lesions noted Neuro: General: patient oriented x3, gait normal, tone normal and moves all extremities Extrem: General: Yes normal to inspection and Yes capillary refill normal Results Labs Result diagrams: 03/28/21 06:49 03/28/21 06:49 Labs: Abnormal lab results 03/25/21 03/25/21 03/27/21 Range/Units 06:44 06:45 18:53 RBC (4.60-5.80) X10*6/uL Hgb 7.0 L* (14.0-18.0) g/dl Hct 22.8 L (42-52) % RDW (11.0-16.0) % MPV (9.4-12.4) fL Absolute Nucleated RBC (0.0-0.012) X10*3/uL Nucleated RBC % (auto) (0.0-0.2) /100WBC Carbon Dioxide (22-29) mmol/L BUN (9-16) mg/dL Creatinine (0.5-1.4) mg/dL POC Glucose (60-115) mg/dL Calcium (8.4-10.2) mg/dL PTH Intact 363 H (14-64) pg/mL Calcium (PTH Intact) 7.3 L (8.6-10.3) mg/dL IgG Total 1772 H (600-1540) mg/dL IgA Total 574 H (70-320) mg/dL Crossmatch 03/27/21 03/27/21 03/28/21 Range/Units 18:54 22:35 06:49 RBC 2.84 L (4.60-5.80) X10*6/uL Hgb 7.7 L 8.5 L (14.0-18.0) g/dl Hct 24.0 L 27.1 L (42-52) % RDW 18.9 H (11.0-16.0) % MPV 9.0 L (9.4-12.4) fL Absolute Nucleated RBC 0.020 H (0.0-0.012) X10*3/uL Nucleated RBC % (auto) 0.3 H (0.0-0.2) /100WBC Carbon Dioxide (22-29) mmol/L BUN (9-16) mg/dL Creatinine (0.5-1.4) mg/dL POC Glucose (60-115) mg/dL Calcium (8.4-10.2) mg/dL PTH Intact (14-64) pg/mL Calcium (PTH Intact) (8.6-10.3) mg/dL IgG Total (600-1540) mg/dL IgA Total (70-320) mg/dL Crossmatch See Detail 03/28/21 03/28/21 Range/Units 06:49 11:28 RBC (4.60-5.80) X10*6/uL Hgb (14.0-18.0) g/dl Hct (42-52) % RDW (11.0-16.0) % MPV (9.4-12.4) fL Absolute Nucleated RBC (0.0-0.012) X10*3/uL Nucleated RBC % (auto) (0.0-0.2) /100WBC Carbon Dioxide 17 L (22-29) mmol/L BUN 85 H* D (9-16) mg/dL Creatinine 4.73 H* (0.5-1.4) mg/dL POC Glucose 118 H (60-115) mg/dL Calcium 6.7 L (8.4-10.2) mg/dL PTH Intact (14-64) pg/mL Calcium (PTH Intact) (8.6-10.3) mg/dL IgG Total (600-1540) mg/dL IgA Total (70-320) mg/dL Crossmatch Short CBC 03/27/21 03/27/21 03/28/21 Range/Units 18:53 22:35 06:49 WBC 7.6 (4.8-10.8) X10*3/uL Hgb 7.0 L* 7.7 L 8.5 L (14.0-18.0) g/dl Hct 22.8 L 24.0 L 27.1 L (42-52) % Plt Count 160 (160-400) X10*3/uL BMP 03/28/21 06:49 Sodium 139 Potassium 4.1 Chloride 107 Carbon Dioxide 17 L BUN 85 H* D Creatinine 4.73 H* Calcium 6.7 L Urine 03/23/21 Range/Units 15:48 Urine Color YELLOW Urine Appearance CLOUDY Urine pH 7.5 (5.0-8.0) Ur Specific [place] 1.020 (1.005-1.025) Urine Protein 3+ H (NEG-TRACE) MG/DL Urine Glucose (UA) NEG (NEG) MG/DL All other labs normal. Assessment and Plan (1) BPH (benign prostatic hyperplasia): Status: Acute (2) Gross hematuria: Status: Acute Wooten catheter for metabolic management per medical team Procedures Date of Service Date of Service: 03/28/21
[2021-03-28 16:15] LABS: Glucose, Whole Blood 115 mg/dL (60-115)
[2021-03-28] MEDS: 0.9 % Sodium Chloride Flush 3 ML SYRINGE IVFLUSH ×2 (17:02→19:59)
[2021-03-28 20:51] LABS: Glucose, Whole Blood 135 mg/dL (60-115)
[2021-03-29] VITALS (11 sets, daily range): BP systolic 113–161; BP diastolic 60–90; PULSE 63–87; RESP 14–21; TEMP 36.1–36.4; O2SAT 92–97
[2021-03-29 06:31] LABS: Hematocrit 28.7 % (42-52); Hemoglobin 8.9 g/dl (14.0-18.0); Mean Corpuscular Hemoglobin 29.8 pg (27.0-33.0); Mean Platelet Volume 9.4 fL (9.4-12.4); Platelet Count 141 X10*3/uL (160-400); Red Blood Count 2.99 X10*6/uL (4.60-5.80); Red Cell Distribution Width 19.1 % (11.0-16.0); White Blood Count 8.1 X10*3/uL (4.8-10.8)
[2021-03-29] MEDS: Omeprazole 40 MG CAPSULE.DR PO (06:39)
[2021-03-29 07:22] LABS: Glucose, Whole Blood 107 mg/dL (60-115)
[2021-03-29 07:23] LABS: Anion Gap 17 (12-20); Blood Urea Nitrogen 86 mg/dL (9-16); Calcium 6.9 mg/dL (8.4-10.2); Carbon Dioxide 19 mmol/L (22-29); Chloride 106 mmol/L (96-108); Creatinine Clr Calc Pharmacy 17.5; Estimated Glomerular Filt Rate 12; Glucose Fasting 114 mg/dL (60-99); Potassium 4.4 mmol/L (3.3-5.1); Sodium 138 mmol/L (135-145)
[2021-03-29] MEDS: MannitoL 12.5 GM/50 ML VIAL IV (08:37)
[2021-03-29] MEDS: 0.9 % Sodium Chloride Flush 3 ML SYRINGE IVFLUSH ×3 (10:20→21:09)
[2021-03-29] MEDS: Tamsulosin HCL 0.4 MG CAPSULE PO (10:20)
[2021-03-29] MEDS: ARIPiprazole 10 MG TABLET PO (10:20)
[2021-03-29] MEDS: Metoprolol Tartrate 50 MG TABLET PO ×2 (10:25→21:08)
[2021-03-29] MEDS: Ascorbic Acid 250 MG TABLET PO ×2 (10:25→21:08)
[2021-03-29] MEDS: hydrALAZINE HCl 25 MG TABLET 75 MG PO ×3 (10:25→21:09)
[2021-03-29] MEDS: Furosemide 40 MG/4 ML VIAL IVPUSH (10:25)
[2021-03-29] MEDS: Sodium Bicarbonate 650 MG TABLET 1300 MG PO ×3 (10:25→21:08)
[2021-03-29 11:15] LABS: Glucose, Whole Blood 90 mg/dL (60-115)
--- NOTE | 2021-03-29 11:22 | P.PNIM_ITS ---
Subjective Subjective Date of Service: 03/29/21 Interval History: cc: sob interval history: unreliable historian, denies complaints Cardiovascular Cardiovascular: Reports no additional cardiovascular complaints Respiratory Respiratory: Reports no additional respiratory complaints Physical Exam Vital Signs: Vital Signs: Last Vital Signs Temp 97.4 F 03/29/21 07:29 Pulse 73 03/29/21 10:25 Resp 18 03/29/21 07:29 BP 137/68 03/29/21 10:25 Pulse Ox 95 03/29/21 07:29 Oxygen Flow Rate 2 03/23/21 14:58 Body Mass Index 39.6 General: lethargic, oriented to person and place, no acute distress Resp:? Crackles bilateral, no accessory muscles used, shallow breathing CVS: S1,S2,RRR GI: soft, non tender, non distended Neuro:? motor grossly intact, lethargic Psych: appropriate affect, no longer aggressive, impaired insight? Objective Data Active Medications Acetaminophen (Acetaminophen 325 Mg Tablet) 650 mg PO Q6H PRN PRN Reason: Pain, Mild (Pain Scale 1-3) Aripiprazole (Aripiprazole 10 Mg Tablet) 10 mg PO DAILY [facility] Last Admin: 03/29/21 10:20 Dose: 10 mg Documented by: SRIDHAR Ascorbic Acid (Ascorbic Acid 250 Mg Tablet) 250 mg PO BID [facility] Last Admin: 03/29/21 10:25 Dose: 250 mg Documented by: SRIDHAR Calcitriol (Calcitriol 0.25 Mcg Capsule) 0.5 mcg PO MoWeFr@0900 [facility] Last Admin: 03/28/21 09:32 Dose: 0.5 mcg Documented by: BISHOP Dextrose (Dextrose 50 % 25 Gm/50 Ml Vial) 25 gm IVPUSH Q15M PRN; Protocol PRN Reason: per Hypoglycemia Standing Ord. Last Admin: 03/26/21 07:53 Dose: 25 gm Documented by: YANELI Docusate Sodium (Docusate Sodium 100 Mg Capsule) 100 mg PO DAILY PRN PRN Reason: Constipation Epoetin Momo (Epoetin Momo 20,000 Unit/Ml Vial) 20,000 unit SUBCUT Q7D [facility] Last Admin: 03/27/21 11:43 Dose: 20,000 unit Documented by: BISHOP Furosemide (Furosemide 40 Mg/4 Ml Vial) 40 mg IVPUSH DAILY [facility]; Protocol Last Admin: 03/29/21 10:25 Dose: 40 mg Documented by: SRIDHAR Glucose (Glucose Gel 15 Gm Gel..Gram.) 15 gm PO Q15M PRN; Protocol PRN Reason: per Hypoglycemia Standing Ord. Hydralazine HCl (Hydralazine Hcl 25 Mg Tablet) 75 mg PO TID [facility]; Protocol Last Admin: 03/29/21 10:25 Dose: 75 mg Documented by: SRIDHAR Meropenem 500 mg/ Sodium (Chloride) 50 mls @ 100 mls/hr IV Q12H [facility] Last Infusion: 03/29/21 11:08 Dose: 0 mls/hr Documented by: SRIDHAR Insulin Human Lispro (Insulin Lispro 100 Unit/Ml 3 Ml Vial) 0 unit SUBCUT QIDACHS [facility]; Protocol Last Admin: 03/29/21 08:33 Dose: Not Given Documented by: SRIDHAR Non-Admin Reason: No Insulin Coverage Metoprolol Tartrate (Metoprolol Tartrate 50 Mg Tablet) 50 mg PO BID [facility]; Protocol Last Admin: 03/29/21 10:25 Dose: 50 mg Documented by: SRIDHAR Omeprazole (Omeprazole 40 Mg Capsule.Dr) 40 mg PO DAILY@0630 [facility] Last Admin: 03/29/21 06:39 Dose: 40 mg Documented by: JIMMY Ondansetron HCl (Ondansetron Hcl 4 Mg/2 Ml Vial) 4 mg IVPUSH Q8H PRN PRN Reason: Nausea and Vomiting Oxybutynin Chloride (Oxybutynin Chloride Er 5 Mg Tab.Er.24) 10 mg PO DAILY [facility] Last Admin: 03/29/21 10:20 Dose: 10 mg Documented by: SRIDHAR Sodium Bicarbonate (Sodium Bicarbonate 650 Mg Tablet) 1,300 mg PO TID [facility] Last Admin: 03/29/21 10:25 Dose: 1,300 mg Documented by: SRIDHAR Sodium Chloride (0.9 % Sodium Chloride Flush 3 Ml Syringe) 3 ml IVFLUSH QSHIFT [facility] Last Admin: 03/29/21 10:20 Dose: 3 ml Documented by: SRIDHAR Tamsulosin HCl (Tamsulosin Hcl 0.4 Mg Capsule) 0.4 mg PO DAILY [facility] Last Admin: 03/29/21 10:20 Dose: 0.4 mg Documented by: SRIDHAR Labs CBC & Chem 7: 03/29/21 06:14 03/29/21 06:14 Labs: Laboratory Results - last 24 hr 03/25/21 03/28/21 03/28/21 06:44 11:28 16:01 MCV MCH MCHC RDW Plt Count MPV Absolute Nucleated RBC Nucleated RBC % (auto) Anion Gap Estim Creat Clear Calc Estimated GFR POC Glucose 118 H 115 Fasting Glucose Calcium PTH Intact 363 H Calcium (PTH Intact) 7.3 L 03/28/21 03/29/21 03/29/21 20:47 06:14 06:14 MCV 96.0 MCH 29.8 MCHC 31.0 RDW 19.1 H Plt Count 141 L MPV 9.4 Absolute Nucleated RBC 0.000 Nucleated RBC % (auto) 0.0 Anion Gap 17 Estim Creat Clear Calc 17.5 Estimated GFR 12 POC Glucose 135 H Fasting Glucose 114 H Calcium 6.9 L PTH Intact Calcium (PTH Intact) 03/29/21 03/29/21 07:09 11:05 MCV MCH MCHC RDW Plt Count MPV Absolute Nucleated RBC Nucleated RBC % (auto) Anion Gap Estim Creat Clear Calc Estimated GFR POC Glucose 107 90 Fasting Glucose Calcium PTH Intact Calcium (PTH Intact) Microbiology Microbiology Results: Microbiology 03/23/21 15:30 Blood Culture - Final Blood - Venous No growth after 5 days. 03/23/21 15:30 Blood Culture - Final Blood - Venous No growth after 5 days. Assessment and Plan (1) Metabolic encephalopathy: Status: Acute (2) Wernickes encephalopathy: Status: Acute (3) High anion gap metabolic acidosis: Status: Acute (4) CHF exacerbation: Status: Acute (5) Acute kidney injury superimposed on CKD: Status: Acute (6) Acute respiratory failure with hypoxia: Status: Acute Assessment and Plan: 70-year-old male with past medical history as mentioned above who presents hospital with edema and shortness of breath per report from skilled nursing Metabolic encephalopathy Multifactorial mainly due to uremia, HX Wernicke's encephalopathy, UTI s/p Perma catheter placement 03/26, underwent HD 03/27 patient had worsening delerium and pulled out catheter evening of 03/27, had estimated 1L blood loss, given 2 units prbc, bleeding stopped. replaced temporary catheter 03/28, continue HD Seen by speech therapy they recommend ground solids thin liquids and pills crush ed in pureed with aspiration precautions hypothermia 2/2 UTI Urine culture growing E coli ESBL positive s/p ceftriaxone now on iv meropenem day 4 ID recommends IV ertapenem to complete total 14 day antibiotics on discharge. 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 On IV Lasix to 40 daily and metoprolol 50 mg b.i.d. 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 Follow BMP GI bleed/ normocytic anemia positive occult stool, no overt bleeding noticed, status post 1 unit of packed RBC Seen by Dr. Sin she recommend to hold intervention at this time Procrit 05425 unit Q weekly likely mostly due to renal disease continue to monitor Hematuria Resolved diabetes sliding scale insulin/diabetic diet poc stable off D10 hypertension hydralazine, lopressor DVT prophylaxis SCDs in the setting of anemia with positive stool occult Quality Stroke Does the patient have a stroke diagnosis?: No VTE Prior VTE?: No VTE Risk Level:: Medical - moderate - high VTE Device Contraindication: N/A - Device Ordered VTE Drug Contraindication: Treatment Not Tolerated
--- NOTE | 2021-03-29 14:55 | P.PNNP_ITS ---
Subjective Subjective Date of Service: 03/29/21 Principal diagnosis: sob, anemia, hematuria, ARF on CKD, CHF Interval history: cc: sob interval history: unreliable historian, denies complaints Sleepy - Had HD this Am Physical Exam Vital Signs: Vital Signs: Last Vital Signs Temp 97 F 03/29/21 11:29 Pulse 63 03/29/21 11:29 Resp 18 03/29/21 11:29 BP 113/66 03/29/21 11:29 Pulse Ox 97 03/29/21 11:29 Oxygen Flow Rate 2 03/23/21 14:58 Body Mass Index 39.6 General: lethargic, oriented to person and place, no acute distress Resp:? Crackles bilateral, no accessory muscles used, shallow breathing CVS: S1,S2,RRR GI: soft, non tender, non distended Neuro:? motor grossly intact, lethargic Psych: appropriate affect, no longer aggressive, impaired insight? Objective Data Labs CBC & Chem 7: 03/29/21 06:14 03/29/21 06:14 Labs: Laboratory Results - last 24 hr 03/28/21 03/28/21 03/29/21 16:01 20:47 06:14 WBC 8.1 RBC 2.99 L Hgb 8.9 L Hct 28.7 L MCV 96.0 MCH 29.8 MCHC 31.0 RDW 19.1 H Plt Count 141 L MPV 9.4 Absolute Nucleated RBC 0.000 Nucleated RBC % (auto) 0.0 Sodium Potassium Chloride Carbon Dioxide Anion Gap BUN Creatinine Estim Creat Clear Calc Estimated GFR POC Glucose 115 135 H Fasting Glucose Calcium 03/29/21 03/29/21 03/29/21 06:14 07:09 11:05 WBC RBC Hgb Hct MCV MCH MCHC RDW Plt Count MPV Absolute Nucleated RBC Nucleated RBC % (auto) Sodium 138 Potassium 4.4 Chloride 106 Carbon Dioxide 19 L Anion Gap 17 BUN 86 H* Creatinine 4.97 H* Estim Creat Clear Calc 17.5 Estimated GFR 12 POC Glucose 107 90 Fasting Glucose 114 H Calcium 6.9 L Microbiology Microbiology Results: Microbiology 03/23/21 15:30 Blood - Venous Blood Culture - Final No growth after 5 days. 03/23/21 15:30 Blood - Venous Blood Culture - Final No growth after 5 days. 03/25/21 20:30 Blood - Venous Blood Culture - Preliminary No growth after 48 hours. 03/25/21 20:35 Blood - Venous Blood Culture - Preliminary No growth after 48 hours. 03/23/21 16:01 Urine clean catch - Urine streeter top Urine Culture - Final Escherichia coli Procedures Date of Service Date of Service: 03/29/21 Assessment & Plan Assessment and plan (1) Acute kidney injury superimposed on CKD: Status: Acute Assessment and Plan: (1) Acute kidney injury superimposed on CKD: ?Assessment and Plan: Worsening renal function in pt with advanced CKD stage 5 underlying. Serologic workup shows high IgG and IgA, awaiting immunofixation We initated dialysisearlier this week for obtundation; he is much more alert t rebel; he has underlying wernicke's as well. Unfortunately, he pulled out his mt. 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
[2021-03-29 17:03] LABS: Glucose, Whole Blood 110 mg/dL (60-115)
[2021-03-29 21:08] LABS: Glucose, Whole Blood 102 mg/dL (60-115)
[2021-03-30] VITALS (12 sets, daily range): BP systolic 112–140; BP diastolic 60–83; PULSE 74–98; RESP 16–20; TEMP 36.1–37.1; O2SAT 94–97
[2021-03-30] MEDS: Omeprazole 40 MG CAPSULE.DR PO (06:09)
[2021-03-30 07:00] LABS: Hemoglobin 8.3 g/dl (14.0-18.0); Mean Corpuscular HGB Conc 30.7 g/dl (31.0-36.0); Mean Corpuscular Hemoglobin 29.6 pg (27.0-33.0); Mean Corpuscular Volume 96.4 fL (80-98); Mean Platelet Volume 9.6 fL (9.4-12.4); Platelet Count 146 X10*3/uL (160-400); Red Cell Distribution Width 18.6 % (11.0-16.0); White Blood Count 8.2 X10*3/uL (4.8-10.8)
[2021-03-30 07:08] LABS: Glucose, Whole Blood 82 mg/dL (60-115)
[2021-03-30 07:27] LABS: Anion Gap 15 (12-20); Blood Urea Nitrogen 55 mg/dL (9-16); Calcium 7.2 mg/dL (8.4-10.2); Carbon Dioxide 21 mmol/L (22-29); Chloride 104 mmol/L (96-108); Creatinine Clr Calc Pharmacy 23.4; Estimated Glomerular Filt Rate 16; Glucose Fasting 84 mg/dL (60-99); Potassium 4.1 mmol/L (3.3-5.1); Sodium 136 mmol/L (135-145)
[2021-03-30] MEDS: Tamsulosin HCL 0.4 MG CAPSULE PO (07:42)
[2021-03-30] MEDS: ARIPiprazole 10 MG TABLET PO (07:42)
[2021-03-30] MEDS: hydrALAZINE HCl 25 MG TABLET 75 MG PO ×3 (07:42→20:42)
[2021-03-30] MEDS: Ascorbic Acid 250 MG TABLET PO ×2 (07:43→20:41)
[2021-03-30] MEDS: Metoprolol Tartrate 50 MG TABLET PO ×2 (07:43→20:41)
[2021-03-30] MEDS: Sodium Bicarbonate 650 MG TABLET 1300 MG PO ×3 (07:43→20:41)
[2021-03-30] MEDS: Furosemide 40 MG/4 ML VIAL IVPUSH (07:43)
[2021-03-30] MEDS: 0.9 % Sodium Chloride Flush 3 ML SYRINGE IVFLUSH ×3 (07:43→20:42)
--- NOTE | 2021-03-30 09:44 | HO.PM.IMPN ---
Subjective Subjective Date of Service: 03/30/21 Interval History: cc: sob interval history: much more alert today, denies complaints though appears quite weak and mildly dyspneic Cardiovascular Cardiovascular: Reports no additional cardiovascular complaints Respiratory Respiratory: Reports no additional respiratory complaints Physical Exam Vital Signs: Vital Signs: Last Vital Signs Temp 98.7 F 03/30/21 03:33 Pulse 80 03/30/21 07:43 Resp 18 03/30/21 07:23 BP 118/66 03/30/21 07:43 Pulse Ox 97 03/30/21 07:23 Oxygen Flow Rate 2 03/23/21 14:58 Body Mass Index 39.6 General: lethargic, oriented to person and place, no acute distress, weak appearing Resp:? Crackles bilateral, no accessory muscles used, shallow breathing CVS: S1,S2,RRR GI: soft, non tender, non distended Neuro:? motor grossly intact, lethargic Psych: appropriate affect, no longer aggressive, impaired insight? Objective Data Active Medications Acetaminophen (Acetaminophen 325 Mg Tablet) 650 mg PO Q6H PRN PRN Reason: Pain, Mild (Pain Scale 1-3) Aripiprazole (Aripiprazole 10 Mg Tablet) 10 mg PO DAILY [facility] Last Admin: 03/30/21 07:42 Dose: 10 mg Documented by: SRIDHAR Ascorbic Acid (Ascorbic Acid 250 Mg Tablet) 250 mg PO BID [facility] Last Admin: 03/30/21 07:43 Dose: 250 mg Documented by: SRIDHAR Calcitriol (Calcitriol 0.25 Mcg Capsule) 0.5 mcg PO MoWeFr@0900 [facility] Last Admin: 03/28/21 09:32 Dose: 0.5 mcg Documented by: BISHOP Dextrose (Dextrose 50 % 25 Gm/50 Ml Vial) 25 gm IVPUSH Q15M PRN; Protocol PRN Reason: per Hypoglycemia Standing Ord. Last Admin: 03/26/21 07:53 Dose: 25 gm Documented by: YANELI Docusate Sodium (Docusate Sodium 100 Mg Capsule) 100 mg PO DAILY PRN PRN Reason: Constipation Epoetin Momo (Epoetin Momo 20,000 Unit/Ml Vial) 20,000 unit SUBCUT Q7D [facility] Last Admin: 03/27/21 11:43 Dose: 20,000 unit Documented by: BISHOP Furosemide (Furosemide 40 Mg/4 Ml Vial) 40 mg IVPUSH DAILY [facility]; Protocol Last Admin: 03/30/21 07:43 Dose: 40 mg Documented by: SRIDHAR Glucose (Glucose Gel 15 Gm Gel..Gram.) 15 gm PO Q15M PRN; Protocol PRN Reason: per Hypoglycemia Standing Ord. Hydralazine HCl (Hydralazine Hcl 25 Mg Tablet) 75 mg PO TID [facility]; Protocol Last Admin: 03/30/21 07:42 Dose: 75 mg Documented by: SRIDHAR Meropenem 500 mg/ Sodium (Chloride) 50 mls @ 100 mls/hr IV Q12H [facility] Last Infusion: 03/30/21 08:54 Dose: 0 mls/hr Documented by: SRIDHAR Insulin Human Lispro (Insulin Lispro 100 Unit/Ml 3 Ml Vial) 0 unit SUBCUT QIDACHS [facility]; Protocol Last Admin: 03/30/21 07:17 Dose: Not Given Documented by: SRIDHAR Non-Admin Reason: No Insulin Coverage Metoprolol Tartrate (Metoprolol Tartrate 50 Mg Tablet) 50 mg PO BID [facility]; Protocol Last Admin: 03/30/21 07:43 Dose: 50 mg Documented by: SRIDHAR Omeprazole (Omeprazole 40 Mg Capsule.) 40 mg PO DAILY@0630 [facility] Last Admin: 03/30/21 06:09 Dose: 40 mg Documented by: JIMMY Ondansetron HCl (Ondansetron Hcl 4 Mg/2 Ml Vial) 4 mg IVPUSH Q8H PRN PRN Reason: Nausea and Vomiting Oxybutynin Chloride (Oxybutynin Chloride Er 5 Mg Tab.Er.24) 10 mg PO DAILY [facility] Last Admin: 03/30/21 07:43 Dose: 10 mg Documented by: SRIDHAR Sodium Bicarbonate (Sodium Bicarbonate 650 Mg Tablet) 1,300 mg PO TID [facility] Last Admin: 03/30/21 07:43 Dose: 1,300 mg Documented by: SRIDHAR Sodium Chloride (0.9 % Sodium Chloride Flush 3 Ml Syringe) 3 ml IVFLUSH QSHIFT [facility] Last Admin: 03/30/21 07:43 Dose: 3 ml Documented by: SRIDHAR Tamsulosin HCl (Tamsulosin Hcl 0.4 Mg Capsule) 0.4 mg PO DAILY [facility] Last Admin: 03/30/21 07:42 Dose: 0.4 mg Documented by: SRIDHAR Labs CBC & Chem 7: 03/30/21 06:17 03/30/21 06:17 Labs: Laboratory Results - last 24 hr 03/29/21 03/29/21 03/29/21 11:05 16:50 20:59 MCV MCH MCHC RDW Plt Count MPV Absolute Nucleated RBC Nucleated RBC % (auto) Anion Gap Estim Creat Clear Calc Estimated GFR POC Glucose 90 110 102 Fasting Glucose Calcium 03/30/21 03/30/21 03/30/21 06:17 06:17 06:58 MCV 96.4 MCH 29.6 MCHC 30.7 L RDW 18.6 H Plt Count 146 L MPV 9.6 Absolute Nucleated RBC 0.000 Nucleated RBC % (auto) 0.0 Anion Gap 15 Estim Creat Clear Calc 23.4 Estimated GFR 16 POC Glucose 82 Fasting Glucose 84 Calcium 7.2 L Assessment and Plan (1) Metabolic encephalopathy: Status: Acute (2) Wernickes encephalopathy: Status: Acute (3) High anion gap metabolic acidosis: Status: Acute (4) CHF exacerbation: Status: Acute (5) Acute kidney injury superimposed on CKD: Status: Acute (6) Acute respiratory failure with hypoxia: Status: Acute Assessment and Plan: 70-year-old male with past medical history as mentioned above who presents hospital with edema and shortness of breath per report from longterm Metabolic encephalopathy Multifactorial mainly due to uremia, HX Wernicke's encephalopathy, UTI s/p Perma catheter placement 03/26, underwent HD 03/27 patient had worsening delerium and pulled out catheter evening of 03/27, had estimated 1L blood loss, given 2 units prbc, bleeding stopped. replaced temporary catheter 03/28, continue HD encephalopathy notable improving Seen by speech therapy they recommend ground solids thin liquids and pills crushed in pureed with aspiration precautions hypothermia 2/2 UTI Urine culture growing E coli ESBL positive s/p ceftriaxone now on iv meropenem day 5 ID recommends IV ertapenem to complete total 14 day antibiotics on discharge. 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 On IV Lasix to 40 daily and metoprolol 50 mg b.i.d. continue hemodialysis MICHA on CKD started on HD replaced temp catheter as above, unclear if he will require care home HD at this time, marciano araiza, catarit nephro following monitor bmp high anion gap metabolic acidosis Secondary to Micha continue sodium bicarb p.o. Follow BMP AG resolved, bicarb now 21 GI bleed/ normocytic anemia positive occult stool, no overt bleeding noticed, status post 1 unit of packed RBC Seen by Dr. Sin she recommend to hold intervention at this time Procrit 34066 unit Q weekly likely mostly due to renal disease continue to monitor Hematuria Resolved diabetes sliding scale insulin/diabetic diet poc stable off D10 hypertension hydralazine, lopressor DVT prophylaxis SCDs in the setting of anemia with positive stool occult Quality Stroke Does the patient have a stroke diagnosis?: No VTE Prior VTE?: No VTE Risk Level:: Medical - moderate - high VTE Device Contraindication: N/A - Device Ordered VTE Drug Contraindication: Treatment Not Tolerated
[2021-03-30 11:08] LABS: Glucose, Whole Blood 106 mg/dL (60-115)
[2021-03-30] MEDS: LORazepam 2 MG/ML VIAL 1 MG IVPUSH (12:39)
--- NOTE | 2021-03-30 16:13 | PM.PNNEP ---
Subjective Subjective Date of Service: 03/30/21 Principal diagnosis: sob, anemia, hematuria, ARF on CKD, CHF Interval history: Pt sleepy anmd comfortable No CP much more alert today, denies complaints though appears quite weak and mildly dyspneic Physical Exam Vital Signs: Vital Signs: Last Vital Signs Temp 97.6 F 03/30/21 15:10 Pulse 83 03/30/21 15:10 Resp 20 03/30/21 15:10 BP 138/60 03/30/21 15:10 Pulse Ox 96 03/30/21 15:10 Oxygen Flow Rate 2 03/23/21 14:58 Body Mass Index 39.6 General: lethargic, oriented to person and place, no acute distress, weak appearing Resp:? Crackles bilateral, no accessory muscles used, shallow breathing CVS: S1,S2,RRR GI: soft, non tender, non distended Neuro:? motor grossly intact, lethargic Psych: appropriate affect, no longer aggressive, impaired insight? Objective Data Labs CBC & Chem 7: 03/30/21 06:17 03/30/21 06:17 Labs: Laboratory Results - last 24 hr 03/29/21 03/29/21 03/30/21 16:50 20:59 06:17 WBC 8.2 RBC 2.80 L Hgb 8.3 L Hct 27.0 L MCV 96.4 MCH 29.6 MCHC 30.7 L RDW 18.6 H Plt Count 146 L MPV 9.6 Absolute Nucleated RBC 0.000 Nucleated RBC % (auto) 0.0 Sodium Potassium Chloride Carbon Dioxide Anion Gap BUN Creatinine Estim Creat Clear Calc Estimated GFR POC Glucose 110 102 Fasting Glucose Calcium 03/30/21 03/30/21 03/30/21 06:17 06:58 10:59 WBC RBC Hgb Hct MCV MCH MCHC RDW Plt Count MPV Absolute Nucleated RBC Nucleated RBC % (auto) Sodium 136 Potassium 4.1 Chloride 104 Carbon Dioxide 21 L Anion Gap 15 BUN 55 H Creatinine 3.72 H Estim Creat Clear Calc 23.4 Estimated GFR 16 POC Glucose 82 106 Fasting Glucose 84 Calcium 7.2 L Microbiology Microbiology Results: Microbiology 03/23/21 15:30 Blood - Venous Blood Culture - Final No growth after 5 days. 03/23/21 15:30 Blood - Venous Blood Culture - Final No growth after 5 days. 03/25/21 20:30 Blood - Venous Blood Culture - Preliminary No growth after 48 hours. 03/25/21 20:35 Blood - Venous Blood Culture - Preliminary No growth after 48 hours. 03/23/21 16:01 Urine clean catch - Urine streeter top Urine Culture - Final Escherichia coli Procedures Date of Service Date of Service: 03/30/21 Assessment & Plan Assessment and plan (1) Acute kidney injury superimposed on CKD: Status: Acute Assessment and Plan: Worsening renal function in pt with advanced CKD stage 5 underlying. Serologic workup - immunofixation negative We initated dialysisearlier this week? for obtundation; he is much more alert today; he has underlying wernicke's as well. Unfortunately, he pulled out his makkellekkelle.? Ne has a new IJ cath (2) High anion gap metabolic acidosis: ?Assessment and Plan: Add sodium bicarb 650 bid (3) Metabolic encephalopathy: (4) Wernickes encephalopathy: (5) Normocytic anemia: ?Assessment and Plan: ?Assessment and Plan: Has ? another mt as nursing home dialysis needs are uncertain Serum Immunofixation is negative procrit 10,000 units weekly Oral sodium bicarb 650 bid On? calcitriol 0.5 mcg three times weekly Plan for dialysis on Wednesday Watch for renal recovery Time Spent With Patient Time: Total time spent is greater than 50% in coordination of care (as documented) at patient's floor/unit and/or counseling patient: Progress Note: Quality Stroke Does the patient have a stroke diagnosis?: No
[2021-03-30 16:51] LABS: Glucose, Whole Blood 95 mg/dL (60-115)
[2021-03-30 20:22] LABS: Glucose, Whole Blood 134 mg/dL (60-115)
[2021-03-31 03:14] VITALS: BP 156/78; PULSE 83; RESP 18; TEMP 36.8; O2SAT 94
[2021-03-31] MEDS: Omeprazole 40 MG CAPSULE.DR PO (05:14)
[2021-03-31 05:47] LABS: Hematocrit 26.8 % (42-52); Hemoglobin 8.3 g/dl (14.0-18.0); Mean Corpuscular Volume 96.8 fL (80-98); Mean Platelet Volume 9.2 fL (9.4-12.4); Platelet Count 146 X10*3/uL (160-400); Red Blood Count 2.77 X10*6/uL (4.60-5.80); Red Cell Distribution Width 18.6 % (11.0-16.0); White Blood Count 11.2 X10*3/uL (4.8-10.8)
[2021-03-31 06:06] LABS: Anion Gap 16 (12-20); Blood Urea Nitrogen 56 mg/dL (9-16); Calcium 7.2 mg/dL (8.4-10.2); Carbon Dioxide 20 mmol/L (22-29); Chloride 104 mmol/L (96-108); Glucose Fasting 112 mg/dL (60-99); Potassium 4.2 mmol/L (3.3-5.1); Sodium 136 mmol/L (135-145)
[2021-03-31 06:17] LABS: Creatinine Clr Calc Pharmacy 21.7; Estimated Glomerular Filt Rate 15
[2021-03-31 07:13] VITALS: BP 136/76; PULSE 101; RESP 19; TEMP 36.3; O2SAT 97
[2021-03-31 07:33] LABS: Glucose, Whole Blood 117 mg/dL (60-115)
[2021-03-31] MEDS: 0.9 % Sodium Chloride Flush 3 ML SYRINGE IVFLUSH (08:45)
[2021-03-31] MEDS: Furosemide 40 MG/4 ML VIAL IVPUSH (08:48)
[2021-03-31 09:12] LABS: Glucose, Whole Blood 128 mg/dL (60-115)
--- NOTE | 2021-03-31 09:19 | PC.NURSE ---
0845: Initials Assessment Went to assess pt and administer his morning medications; pt was found to be somnolent and unresponsive; attempted to stimulate him with bed change and ADLS. Pt was observed to be having a hard time breathing. Immediately check O2 saturation which showed pt at 60% on RA; previously pt was 97 this morning on RA this morning; O2 was reapplied to pt and his sats began improving. Pt remained unresponsive; notified my Clinical sorority supervisor to do secondary assessment, MD was notified and vitals were checked: BP was 138/79, POC of 128 and O2 at 91% on 6L. 0850: Continuity of Assessment Clinical supervise assess patient, tried to arouse him with a sternal rub; pt was still obtunded and CNA HHA was initiated. Pt is a DNR/DNI ;MD aware. pt was tried to be aroused with further sternal rub, however he remains somnolent and appeared to be anoxic to MD. MD initiated call to family. Will continue to monitor patient for 1 hour; vitals remain in tact.
--- NOTE | 2021-03-31 09:47 | P.EN_ITS ---
Event Note Date of Service: 03/31/21 Event Note: rapid response called for AMS, hypoxia in 60s. patient placed on N RB, bp stable, patient with agonal breathing, unarousable. globally weak with no obvious focal deficit. discussed with guardian, confirmed DNR/dNI, prognosis extremely poor, decision made for comfort measures and to attempt to transfer patient back to [facility] facility with understanding that patient may on transport.
--- NOTE | 2021-03-31 10:22 | MHC.CM.PN ---
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
--- NOTE | 2021-03-31 10:53 | P.CDIC_ITS ---
CDI Concurrent Query Documentation Clarification: PHYSICIAN'S DOCUMENTATION REQUEST Date of Query: 03/31/21 1058 Patient Name: Romero Slaughter Admit Date: 03/23/21 Dear Doctor, A review of the medical record indicates additional documentation may be needed. Please review below and update the documentation accordingly. Clinical Indicators: Risk Factors/Clinical Indicators/Treatments Nephrology note 03/30- more alert today, appears weak but denies complaints. PN: 03/31 - AMS, hypoxia in 60's, agonal breathing, unarousable. DNR/DNI now made FIRST AID NURSE. Obtundation, shallow breathing. Based on the above, could you clarify in the Progress Notes which, if any of the following, is the most likely etiology of the confusion/altered mental status? * Coma * Other etiology (please specify) * Unable to determine Use of terms such as suspected, likely, concern for, or probable (associated with a specific diagnosis that is being evaluated, monitored, or treated as if it exists) are acceptable and can be coded in the inpatient setting, when documented at the time of discharge. Thank you, Anuja Prado [facility], CDIS Extension: [id number] Please use your independent medical judgment in providing your response. THIS QUERY IS PART OF THE PERMANENT MEDICAL RECORD Provider Response: Other Other Diagnosis: coma
[2021-03-31 11:01] LABS: COVID-19 Test Negative (Negative); IDNOW Serial# 9DD0AD1C
--- NOTE | 2021-03-31 11:53 | PM.PNNEP ---
Subjective Subjective Date of Service: 04/01/21 Principal diagnosis: sob, anemia, hematuria, ARF on CKD, CHF Interval history: Barely responsive Physical Exam Vital Signs: Vital Signs: Last Vital Signs Temp 97.4 F 03/31/21 07:13 Pulse 101 H 03/31/21 07:13 Resp 19 03/31/21 07:13 BP 136/76 03/31/21 07:13 Pulse Ox 97 03/31/21 07:13 Oxygen Flow Rate 2 03/23/21 14:58 Body Mass Index 39.6 Const: General: ill appearing Resp: Auscultation: diminished lung sounds Objective Data Labs CBC & Chem 7: 03/31/21 05:33 03/31/21 05:33 Labs: Laboratory Results - last 24 hr 03/30/21 03/30/21 03/31/21 16:47 19:58 05:33 WBC 11.2 H RBC 2.77 L Hgb 8.3 L Hct 26.8 L MCV 96.8 MCH 30.0 MCHC 31.0 RDW 18.6 H Plt Count 146 L MPV 9.2 L Absolute Nucleated RBC 0.000 Nucleated RBC % (auto) 0.0 Sodium Potassium Chloride Carbon Dioxide Anion Gap BUN Creatinine Estim Creat Clear Calc Estimated GFR POC Glucose 95 134 H Fasting Glucose Calcium COVID-19 ([facility]RA) COVID-19 Treasure Data 03/31/21 03/31/21 03/31/21 05:33 07:14 09:09 WBC RBC Hgb Hct MCV MCH MCHC RDW Plt Count MPV Absolute Nucleated RBC Nucleated RBC % (auto) Sodium 136 Potassium 4.2 Chloride 104 Carbon Dioxide 20 L Anion Gap 16 BUN 56 H Creatinine 4.01 H* Estim Creat Clear Calc 21.7 Estimated GFR 15 POC Glucose 117 H 128 H Fasting Glucose 112 H Calcium 7.2 L COVID-19 ([facility]RA) COVID-19 Treasure Data 03/31/21 10:14 WBC RBC Hgb Hct MCV MCH MCHC RDW Plt Count MPV Absolute Nucleated RBC Nucleated RBC % (auto) Sodium Potassium Chloride Carbon Dioxide Anion Gap BUN Creatinine Estim Creat Clear Calc Estimated GFR POC Glucose Fasting Glucose Calcium COVID-19 ([facility]) Negative COVID-19 Clin Com See Note Microbiology Microbiology Results: Microbiology 03/25/21 20:35 Blood - Venous Blood Culture - Final No growth after 5 days. 03/25/21 20:30 Blood - Venous Blood Culture - Final No growth after 5 days. 03/23/21 15:30 Blood - Venous Blood Culture - Final No growth after 5 days. 03/23/21 15:30 Blood - Venous Blood Culture - Final No growth after 5 days. 03/23/21 16:01 Urine clean catch - Urine streeter top Urine Culture - Final Escherichia coli Procedures Date of Service Date of Service: 03/31/21 Assessment & Plan Assessment and plan (1) Acute kidney injury superimposed on CKD: Status: Acute Assessment and Plan: (1) Acute kidney injury superimposed on CKD: ?Status:?Acute ?Assessment and Plan: Worsening renal function in pt with advanced CKD stage 5 underlying. Serologic workup - immunofixation negative (2) High anion gap metabolic acidosis: ? ? sodium bicarb 650 bid (3) Metabolic encephalopathy: (4) Wernickes encephalopathy: (5) Normocytic anemia: ? ? ? Hold HD today Overall prognosis poor Consider [place] Time Spent With Patient Time: Total time spent is greater than 50% in coordination of care (as documented) at patient's floor/unit and/or counseling patient: Progress Note: Quality Stroke Does the patient have a stroke diagnosis?: No
--- NOTE | 2021-03-31 12:00 | MHC.SLORD ---
Speech Language Pathology Order Status: SOLID WASTE LANDFILL TECHNICIAN spoke with RN in patient room. Patient became unresponsive earlier today. 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
--- NOTE | 2021-03-31 12:07 | PM.DS ---
DS: Providers Provider Date of Service: 03/31/21 Date of admission: 03/23/21 22:36 Primary care physician: Tr Florentino DO Consults: 03/24/21 00:12 Consult to Gastroenterology Routine Consulting Provider: Divine Gould Reason for consultation: Anemia with positive stool occult Has provider been notified: No Consult to Nephrology Routine Consulting Provider: [facility] Reason for consultation: AGMA, MICHA Has provider been notified: Yes 03/24/21 07:14 Consult to Cardiology Routine Consulting Provider: Thomas Mchugh Reason for consultation: CHF exacerbation Has provider been notified: No 03/24/21 12:22 Consult to Urology Routine Consulting Provider: Miguel Urias Reason for consultation: Hematuria after Patient pulled out the [place] 03/25/21 20:09 Consult to Infectious Diseases Routine Consulting Provider: Joanie Christensen Reason for consultation: UTI; ECOLI ceftriaxone resistant; sensitive to ertapenem DS: Diagnosis Discharge Diagnosis (1) Acute kidney injury superimposed on CKD: Status: Acute (2) Metabolic encephalopathy: Status: Acute (3) Acute on chronic combined systolic (congestive) and diastolic (congestive) heart failure: Status: Acute (4) Coma: Status: Acute DS: Summary Hospital Course Hospital Course: patient was admitted for acute hypoxic respiratory fialure due to acute pulmonary edema from acute on chronic combined systolic and diastolic CHF with RV dysfunction and MICHA on CKD IV, complicated by metabolic encephaloapthy, hypothermia. he was also treated for ESBL ecoli uti with meropenem. he was given IV lasix and also started on HD. couse was complicated by patient pulling out HD catheter and having some acute blood loss. he was given 2 units prbc, HD catheter was replaced and patient continued HD. initiallly, had some improvement in mental status and hypoxia. however, on am of 03/31/21 patient had rapid reponse for hypoxia and unresponsiveness. he was unarousable, placed on 100%NRB and was able then to maintain o2. he continued to have agonal breathing and appears to have coma from anoxic brain injury. discussion was had with guardian who confirmed DNR/DNI status. decision was made to pursue comfort measures only and to attempt to get patient back to his familliar envirnment at [facility] for end [facility] life [facility]. Time Spent with Patient Time attestation: Total time spent providing and/or coordinating discharge services: Discharge coordination time: Greater than 30 minutes Quality: Stroke Does the patient have a stroke diagnosis?: No Physical Exam Vital Signs: Vital Signs: Last Vital Signs Temp 97.4 F 03/31/21 07:13 Pulse 101 H 03/31/21 07:13 Resp 19 03/31/21 07:13 BP 136/76 03/31/21 07:13 Pulse Ox 97 03/31/21 07:13 Oxygen Flow Rate 2 03/23/21 14:58 Body Mass Index 39.6 General: comatous, shallow breathing DS: Data Data Completed and Pending Labs on day of discharge: Laboratory Results - last 24 hr 03/30/21 03/30/21 03/31/21 16:47 19:58 05:33 WBC 11.2 H RBC 2.77 L Hgb 8.3 L Hct 26.8 L MCV 96.8 MCH 30.0 MCHC 31.0 RDW 18.6 H Plt Count 146 L MPV 9.2 L Absolute Nucleated RBC 0.000 Nucleated RBC % (auto) 0.0 Sodium Potassium Chloride Carbon Dioxide Anion Gap BUN Creatinine Estim Creat Clear Calc Estimated GFR POC Glucose 95 134 H Fasting Glucose Calcium COVID-19 ([facility]) COVID-19 [employer] 03/31/21 03/31/21 03/31/21 05:33 07:14 09:09 WBC RBC Hgb Hct MCV MCH MCHC RDW Plt Count MPV Absolute Nucleated RBC Nucleated RBC % (auto) Sodium 136 Potassium 4.2 Chloride 104 Carbon Dioxide 20 L Anion Gap 16 BUN 56 H Creatinine 4.01 H* Estim Creat Clear Calc 21.7 Estimated GFR 15 POC Glucose 117 H 128 H Fasting Glucose 112 H Calcium 7.2 L COVID-19 ([facility]) COVID-19 Clin Com 03/31/21 10:14 WBC RBC Hgb Hct MCV MCH MCHC RDW Plt Count MPV Absolute Nucleated RBC Nucleated RBC % (auto) Sodium Potassium Chloride Carbon Dioxide Anion Gap BUN Creatinine Estim Creat Clear Calc Estimated GFR POC Glucose Fasting Glucose Calcium COVID-19 (KIARRA) Negative COVID-19 Clin Com See Note Discharge Plan Discharge Patient Disposition: [facility] Discharge Diagnosis: micha Referrals: [facility] [Other] - 1 Week Tr Florentino DO [Primary Care Provider] - 1 Week Discharge Medications: Discontinued metoprolol tartrate 100 mg tablet 1 tab PO BID RF: 0 gemfibrozil 600 mg tablet 1 tab PO BID RF: 0 insulin lispro [Humalog KwikPen Insulin] 100 unit/mL insulin pen subcut TIDAC RF: 0 aripiprazole 10 mg tablet 1 tab PO DAILY RF: 0 Farxiga 5 mg tablet 1 tab PO DAILY RF: 0 tamsulosin 0.4 mg capsule 1 cap PO DAILY RF: 0 oxybutynin chloride 5 mg tablet 10 mg PO BID RF: 0 furosemide 40 mg Tablet 40 mg PO DAILY Qty: 0 RF: 0 hydralazine 25 mg Tablet 75 mg PO TID Qty: 0 RF: 0 doxycycline hyclate 100 mg capsule 1 cap PO BID RF: 0 ascorbic acid (vitamin C) [Vitamin C] 250 mg Tablet 250 mg PO BID RF: 0 ferrous sulfate 325 mg (65 mg iron) Tablet 325 mg PO BID RF: 0 amlodipine 10 mg tablet 10 mg PO DAILY RF: 0 Discharge Orders: Discharge Order (Routine); Ordered 03/31/21 Ordered By: Osmani Wall Diet: advance to usual diet Activity on Discharge: As tolerated Stand Alone Forms: Patient Portal Discharge page Care Plan Goals: comfort Health Concerns: end of life Plan of Treatment: trasfer back to [facility] life [facility] Assessment: see above
== END 2021-03-31 13:00 | disposition skilled nursing facility (03) | DRG 673 ==
LOC: HO.ED 16:02 → HO.EDOVER 23:23 → HO.IMC 03-24 16:09
PROVIDERS: Emergency Medicine; Family Medicine; Hospitalist; Internal Medicine Gastroenterology; Internal Medicine Nephrology; Nurse Practitioner Family; Radiology Diagnostic Radiology; Student in an Organized Health Care Education/Training Program; Admitting Provider Internal Medicine; Emergency Provider Emergency Medicine; PCP Hospitalist; Visit Provider Internal Medicine
PROC: 0JH63XZ Insertion of Tunneled Vascular Access Device into Chest Subcutaneous Tissue and Fascia, Percutaneous Approach (ICD-10-PCS; principal; 2021-03-26 14:00)
PROC: 06H033Z Insertion of Infusion Device into Inferior Vena Cava, Percutaneous Approach (ICD-10-PCS; principal; 2021-03-28 14:30)
DX: N17.9 Acute kidney failure, unspecified (principal); J96.01 Acute respiratory failure with hypoxia; G93.41 Metabolic encephalopathy; R40.20 Unspecified coma; I50.43 Acute on chronic combined systolic (congestive) and diastolic (congestive) heart failure; I13.0 Hypertensive heart and chronic kidney disease with heart failure and stage 1 through stage 4 chronic kidney disease, or unspecified chronic kidney disease; N39.0 Urinary tract infection, site not specified; E87.2 Acidosis; E51.2 Wernicke's encephalopathy; Z16.12 Extended spectrum beta lactamase (ESBL) resistance; G93.1 Anoxic brain damage, not elsewhere classified; I42.6 Alcoholic cardiomyopathy; N18.4 Chronic kidney disease, stage 4 (severe); R31.9 Hematuria, unspecified; R68.0 Hypothermia, not associated with low environmental temperature; B96.20 Unspecified Escherichia coli [E. coli] as the cause of diseases classified elsewhere; I25.10 Atherosclerotic heart disease of native coronary artery without angina pectoris; N40.0 Benign prostatic hyperplasia without lower urinary tract symptoms; E11.22 Type 2 diabetes mellitus with diabetic chronic kidney disease; D63.1 Anemia in chronic kidney disease; Z20.822 Contact with and (suspected) exposure to COVID-19; Z88.0 Allergy status to penicillin; Z66 Do not resuscitate
CPT/HCPCS: 36415; 36556; 36558; 71045; 76937; 80048; 80076; 81001; 82272; 82306; 82607; 82728; 82746; 82784; 82803; 82947; 83540; 83605; 83880; 83970; 84100; 84300; 84484; 85014; 85018; 85025; 85027; 85610; 86021; 86160; 86334; 86704; 86706; 86850; 86900; 86901; 86923; 87040; 87086; 87088; 87186; 87340; 87635; 90999; 92610; 93005; 96365; 96375; 99285; C1752; C1769; J0696; J0885; J1335; J1940; J1956; J2060; J2150; J2185; P9016